=== PATIENT | female | born 1950 | race Caucasian/White ===

== ENCOUNTER 2025-07-29 10:38 | Outpatient (AMB) | payer OTHER, SELFPAY ==
--- NOTE | 2025-07-29 10:41 | MHC.OFFVIS ---
Vital Signs 07/29/25 10:46 Height 5 ft 7.5 in Weight 146 lb 8 oz BMI 22.6 Intake Visit Reasons: Chronic Bilateral Low Back Pain Intake Note: Pain today 11/30 Electrocardiogram Technician Required: No Accompanied by: Self / Same As Patient Allergies No Known Allergies Allergy (Verified 07/29/25 10:43) HPI Comments Details: The patient is a 74-year-old female presenting with chronic pain in the right thigh and sciatica. She reports a similar trajectory on her left side, which previously resulted in back surgery in October 2018, where L4 and L5 were debrided to relieve nerve compression. The surgery was performed at [facility] by Dr. Suazo. The patient has a history of falling off a horse in 2005, resulting in rib fractures and a cracked pelvis on the left side. She was diagnosed with osteoporosis in 2023, which is more severe in the right hip. She has not continued physical therapy after recent initial visit at [facility]. She previously was receiving back injections at [facility]. The patient experiences chronic low back pain, which radiates from the right lower back to the buttock, thigh, calf, and side of the foot, sparing the heel. She reports numbness in the left ankle and calf, as well as in the neck, which has been worsening over time. Bending backwards exacerbates the back pain, while bending forward provides relief. The patient has scoliosis, spondylosis, degenerative disc changes, sacroiliac joint pain and osteoporosis, which contribute to her back pain. 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 Driving exacerbates her pain, and she has not had MRIs for her hip or back. The patient reports tachycardia, particularly when lying down at night, which affects her sleep. Her levothyroxine dosage was recently adjusted by her Sequencing Machine Operator, but the issue persists. Patient reports history of thyroidectomy in 1997, unclear why, denies cancer or Grave's history. She plans to follow up with her providers regarding this. - Onset: Chronic, worsening over past 6 months, similar trajectory to previous left side pain - Quality: Radiating, aching, shooting pain from right lower back to buttock, thigh, calf, and side of the foot - Exacerbating factors: Bending backwards, driving, heavy lifting, climbing, prolonged walking or standing - Relieving factors: Bending forward, acupuncture, meloxicam, prednisone trial and cyclobenzaprine - Interference: Affects daily activities, worsens by late afternoon - Affect: Pain impacts sleep and daily activities - Analgesia: Uses lidocaine patches; pain worsens to 7/10 by late afternoon - Adverse Effects: Thin skin limits use of ibuprofen - Activities of Daily Living: Pain affects functioning, especially in the afternoon - Aberrant Drug Related Behaviors: None reported [facility] Medical History (Updated 08/01/25 @ 17:01 by MIGUEL Brink) Vitamin D deficiency Raynauds disease ADD (attention deficit disorder) Age-related osteoporosis without current pathological fracture Myofascial muscle pain Neck stiffness Sacroiliitis Chronic lower back pain Surgical History (Updated 08/01/25 @ 17:01 by MIGUEL Brink) History of back surgery (~2019) History of right shoulder replacement H/O thyroidectomy Social History Household Members: Spouse Housing: House Housing Other:: Lives and works at the [employer] Alcohol intake: never Patient Tobacco Use Status: Never used Tobacco Review of Systems Const Details: - Musculoskeletal: Reports chronic low back pain, radiating to right thigh and calf - Neurological: Reports numbness in neck and feet, particularly in the left ankle and calf - Cardiovascular: Reports tachycardia, especially when lying down - Dermatological: Reports thin skin All systems reviewed & are unremarkable except as noted in HPI and below Physical Exam Vital Signs: BMI result Body Mass Index 22.6 General: Appears afebrile. Alert and oriented. Mood and affect appropriate. Follows and participates in conversation appropriately. Respiratory effort is unlabored. No cough. Able to transition from sit to stand unassisted. Ambulates with bilaterally normal heel strike and toe off. General: Yes no CVA tenderness Back/Spine/Pelvis Other: Limited lumbar ROM due to pain. Lumbar extension reproduces moderate pain, flexion forward and bending causes mild symptoms. Demonstrates 5/5 strength of quadriceps bilaterally as well as flexion/dorsiflexion of bilateral feet against resistance. 2+ pedal pulses bilaterally. Straight leg rise with dorsiflexion positive on the right. +1 patellar and achilles reflexes bilaterally. Facet loading test positive bilaterally. Abdirahman sign, Samson?s, Gaenslen, Pelvic compression and Stinchfield tests are positive on the right. Mild groin pain with right I/E hip rotations. Valsalva maneuver negative. Back: no CVA tenderness Cervical Spine: cervical ROM normal, cervical muscular tenderness, pain with cervical ROM and No Cervical spine tenderness Thoracic/Lumbar Spine: thoracic and lumbar spine normal to inspection, Thoracic/lumbar spine scar(s), Lasegue's sign positive on the right and localized, pain with thoraco-lumbar ROM, paraspinal muscle tenderness, thoraco-lumbar ROM limited, No thoracic spinal tenderness and lumbar spinal tenderness (L4-S1) Pelvis: buttock tenderness on the right Sacroiliac joints: bilaterally tender to palpation Results Reviewed Results Reviewed: Assessment & Plan Assessment & Plan (1) Sacroiliac joint pain: Code(s): M53.3 - Sacrococcygeal disorders, not elsewhere classified (2) Lumbar radiculopathy: Code(s): M54.16 - Radiculopathy, lumbar region Category: Medical (3) Lumbar post-laminectomy syndrome: Code(s): M96.1 - Postlaminectomy syndrome, not elsewhere classified Category: Medical (4) Lumbar degenerative disc disease: Code(s): M51.369 - Other intervertebral disc degeneration, lumbar region without mention of lumbar back pain or lower extremity pain Category: Medical (5) Chronic lower back pain: Code(s): M54.50 - Low back pain, unspecified; G89.29 - Other chronic pain Category: Medical (6) Spondylolisthesis, lumbar region: Code(s): M43.16 - Spondylolisthesis, lumbar region Category: Medical Plan The plan includes obtaining lumbar spine MRI to assess for neural integrity and compression, given the patient's history of worsening chronic low back pain and right sided sciatica and SIJ pain components. Discussed diagnostic lumbar medial branch block injections for axial low back pain diagnostic purposes to determine the source of pain for potential radiofrequency ablation or Sprint PNS trial are considered as potential treatments, depending on the diagnostic outcomes. The patient will continue meloxicam as needed for pain management, with instructions to take it with food. Physical therapy is on hold until after the diagnostic procedures. All questions and concerns have been answered and patient agreed with the treatment plan. Follow up for MRI results and sooner as needed. Patient was informed and verbally consented to the use of an ambient scribe for clinic note documentation during this visit. Orders: Orders MR lumbar spine wo con 07/29/25 M43.16 - Spondylolisthesis, lumbar region, M47.817 - Spondylosis without myelopathy or radiculopathy, lumbosacral region, M51.369 - Other intervertebral disc degeneration, lumbar region without mention of lumbar back pain or lower extremity pain, M54.16 - Radiculopathy, lumbar region Coding Level of Care Code New Pt Level 4 (90592) Diagnoses Sacroiliac joint pain M53.3 Lumbar radiculopathy M54.16 Lumbar post-laminectomy syndrome M96.1 Lumbar degenerative disc disease M51.369 Chronic lower back pain M54.50; G89.29 Spondylolisthesis, lumbar region M43.16
[2025-07-29 10:46] VITALS: BMI 22.6
== END 2025-07-29 11:30 | disposition home or self-care (01) ==
LOC: HO.PMC 10:38
PROVIDERS: PCP Nurse Practitioner Family; Visit Provider Nurse Practitioner Family
DX: M53.3 Sacrococcygeal disorders, not elsewhere classified (principal); M54.16 Radiculopathy, lumbar region; M96.1 Postlaminectomy syndrome, not elsewhere classified; M51.369 Other intervertebral disc degeneration, lumbar region without mention of lumbar back pain or lower extremity pain; M54.50 Low back pain, unspecified; G89.29 Other chronic pain; M43.16 Spondylolisthesis, lumbar region
CPT/HCPCS: 99204

== ENCOUNTER → 2025-08-30 12:56 | Outpatient (BNV) | payer OTHER, SELFPAY | PROVIDERS: PCP Internal Medicine; Visit Provider Radiology Diagnostic Radiology | DX: M51.369 Other intervertebral disc degeneration, lumbar region without mention of lumbar back pain or lower extremity pain (principal); M47.817 Spondylosis without myelopathy or radiculopathy, lumbosacral region; M99.63 Osseous and subluxation stenosis of intervertebral foramina of lumbar region; M99.64 Osseous and subluxation stenosis of intervertebral foramina of sacral region | CPT/HCPCS: 72158 ==

== ENCOUNTER 2025-08-30 12:57 | Outpatient (REF) | payer OTHER, SELFPAY ==
--- OUTSIDE RECORDS SUMMARY | 2013-04-20 23:00 | XMS_ITS | Encounter Summary ---
Author Organization [facility] Address [address] [place] [address] Phone Care Team Providers Care Printing Agent Name Role Phone Unavailable Primary Care Provider Unavailabl e Encounter Details Date Type Department Care Team (Late st Contact Info) Description 04/21/2013 Hospital Encounter [facility],Outside Imaging 30 [place] [address] System, Provider Not In, [facility] [address] [address] Social History Tobacco Use Types Packs/Day Years [...] 10:15 PM EDT Evangelina Boland RN * [place] Suicide Severity Rating Scale (Screener/Recent Self-Report) Question [...] 11:40 AM EDT Office Visit [facility] [address] [place] [address] Missy Gannon MD [address] [place] [address] [email or web address] documented as of this encounter Procedures Procedure [...] It is not the complete legal health record.[facility]
--- OUTSIDE RECORDS SUMMARY | 2013-07-16 23:00 | XMS_ITS | Encounter Summary ---
Author Organization [facility] Address [address] [place] [address] Phone Care Team Providers Care Analytics Director Name Role Phone Unavailable Primary Care Provider Unavailabl e Encounter Details Date Type Department Care Team (Late st Contact Info) Description 07/17/2013 Hospital Encounter [facility],Outside Imaging [address] [place] [address] System, Provider Not In, [facility] [address] [address] Social History Tobacco Use Types Packs/Day Years [...] 10:15 PM EDT Evangelina Boland RN * [place] Suicide Severity Rating Scale (Screener/Recent Self-Report) Question [...] 11:40 AM EDT Office Visit [facility] [address] [place] [address] Missy Gannon MD [address] [place] [address] [email or web address] documented as of this encounter Procedures Procedure [...] It is not the complete legal health record.[facility]
--- OUTSIDE RECORDS SUMMARY | 2013-07-16 23:05 | XMS_ITS | Encounter Summary ---
Author Organization [facility] Address [address] [place] [address] Phone Care Team Providers Care Senior Talent Acquisition Specialist Name Role Phone Unavailable Primary Care Provider Unavailabl e Encounter Details Date Type Department Care Team (Late st Contact Info) Description 07/17/2013 12:05 AM EDT Hospital Encounter [facility],Outside Imaging [address] [place] [address] System, Provider [place] In, [place] [address] Social History Tobacco Use Types Packs/Day Years [...] 10:15 PM EDT Evangelina Boland, ANDRI[place] * [place] Suicide Severity Rating Scale (Screener/Recent Self-Report) Question [...] 11:40 AM EDT Office Visit [facility] [address] [place] [address] Missy Gannon MD [address] [place] [address] [email or web address] documented as of this encounter Procedures Procedure [...] It is not the complete legal health record.[facility]
--- NOTE | ~2025-08-30 | MR_ITS ---
EXAMINATION: MR LUMBAR SPINE WITHOUT AND WITH CONTRAST CLINICAL INFORMATION: M 51.369. COMPARISON: None available. TECHNIQUE: MRI of the lumbar spine was obtained using routine sequences with and without contrast. Intravenous contrast: Total of 6.5 mL gadolinium based (Gadavist) without reported immediate complications FINDINGS: Last rib-bearing vertebra labeled T12. There is a subtle bone marrow STIR signal in the endplates of L2-3 and L5-S1. Bone marrow inhomogeneity throughout the axial skeleton. Multilevel marginal osteophyte formation and endplate irregularity, decreased intervertebral disc height and signal throughout the axial skeleton. Intrinsic hyperintense T1 bone lesion at L3 likely intraosseous hemangioma. Grade 1 anterolisthesis L4-5. Grade 1 retrolisthesis L1 to and L2-3. Conus medullaris ends at inferior endplate of L1 with normal signal. No abnormal enhancement within the neural elements of the thecal sac, central spinal canal or prevertebral compartment. No enhancing mass in the prevertebral compartment or within the neural elements of the thecal sac. T12-L1: No herniated disc. No neuroforamina stenosis. L1-2: Broad-based disc bulging. Facet joint hypertrophy. Reduced AP diameter of the thecal sac and neuroforamina. L2-3: Broad-based disc bulging. Facet joint and ligamentum flavum hypertrophy. Reduced AP diameter thecal sac and neuroforamina pronounced in the left side. L3-4: Broad-based disc bulging. Facet joint and ligamentum flavum hypertrophy. Central spinal canal and bilateral neuroforamina stenosis likely encroaching the neural elements. L4-5: Broad-based disc bulging. Facet joint hypertrophy. Reduced AP diameter of thecal sac. Bilateral neuroforamina stenosis encroaching the L4 exiting nerve roots. Probable left hemilaminectomy. L5-S1: There is a left subarticular nonenhancing isointense T2 signal abnormality within the left midline ventral epidural/subdural compartment encroaching posterior compressing left S1 nerve roots. Broad-based disc bulging. Facet joint hypertrophy. Bilateral neuroforamina stenosis compressing the exiting nerve roots. MR/MR lumbar spine wo/w con IMPRESSION: Concerning left subarticular disc herniation at L5-S1 compressing the left S1 nerve root. Multilevel spondylosis resulting in bilateral neuroforamina stenosis at L5-S1 and left L2-3 encroaching the exiting nerve roots. Grade 1 anterolisthesis at L4-5 resulting in bilateral neuroforamina stenosis encroaching the exiting nerve roots. No abnormal enhancement. Osteopenia versus osteoporosis. Electronically signed by: Marck Garner MD 08/30/2025 02:19 PM [employer]
--- OUTSIDE RECORDS SUMMARY | 2025-08-30 15:01 | XMS_ITS | Encounter Summary ---
Author Organization [facility] Address [address] [place] [address] Phone Care Team Providers Care Treasury Assistant Name Role Phone Richard Springer MD Unavailable [phone] Scott Roe MD Unavailable [phone] Thelma Abarca MD Unavailable [phone] Johanna Fields MD Unavailable [phone] Rakan Avila MD Unavailable [phone] Lara Maldonado RNaquatics specialist Provider [phone] Antonia Reyes MD Primary Care Provider [email or web address] Clotilde Phillips AIRBORNE OPERATIONS MANAGER Primary Care Provider [phone] Julita Urbina MD Primary Care Provider [phone] Encounter Details Date Type Department Care Team (Late st Contact Info) Description 07/26/2020 Ancillary Orders [facility],Outside Imaging [address] [place] [address] System, Provider Not In, PhD [address] [address] Social History Tobacco Use Types Packs/Day Years Used Date Smoking Tobacco: Never Smokeless Tobacco: Never Alcohol Use Standard Drinks/Week Comments Yes 0 (1 standard drink = 0.6 oz pur e alcohol) small amt of beer nightly Comments Unknown Sex and Gender Information Value Date Recorded [...] AM EDT Office Visit [facility] [address] [place] [address] Missy Gannon MD [address] [place] [address] [email or web address] documented as of this encounter Results * Mammogram Outside (No Interpretation) (05/09/2015 12:00 AM EDT) Narrative SYSTEMGENERATED, DOCUMENTATION - [...] COVID-19 07/04/2024 07/04/2024 07/25/2024 1:22 AM EDT Assessment Noted Time PHQ-2 Depression Total Score: 1 08/21/20 18 2:32 PM EDT documented as of this encounter Care Teams Treasury Assistant Relationship Specialty Start Date End Date Lara Maldonado RN [address] [place] [address] PCP - General Internal Medicine 05/16/20 12/21/20 Antonia Reyes MD [email or web address] PCP - General Family Medicine 12/22/20 05/03/21 Clotilde Phillips FNP [address] [place] [address] 7 [place] [address] [email or web address] PCP - General Family Medicine 05/04/21 12/10/22 Julita Urbina MD [address] [place] [address] [email or web address] PCP - General Internal Medicine 12/11/22 Richard Springer MD [address] [place] [address] [email or web address] Historical LMR Provider 08/10/17 12/21/20 Scott Roe MD [address] [place] [address] [email or web address] Historical LMR Provider 08/10/17 12/21/20 Thelma Abarca MD [address] [place] [address] Historical LMR Provider 08/10/17 1 Johanna Fields MD [address] [place] [address] Historical LMR Provider 08/10/17 1 Rakan Avila MD [address] [place] [address] Historical LMR Provider 08/10/17 1 documented as of this encounter Additional Source Comments The information contained in this document represents components of the legal health record. It is not the complete legal health record.[facility]
--- OUTSIDE RECORDS SUMMARY | 2025-08-30 15:01 | XMS_ITS | Encounter Summary ---
Author Organization [facility] Address [address] [place] [address] Phone Care Team Providers Care Instructor Extension Work Name Role Phone Richard Springer MD Unavailable [phone] Scott Roe MD Unavailable [phone] Thelma Abarca MD Unavailable [phone] Johanna Fields MD Unavailable [phone] Rakan Avila MD Unavailable [phone] Lara Maldonado RNstructures mechanic Provider [phone] Antonia Reyes MD Primary Care Provider [email or web address] Clotilde Phillips SAMPLE STEAMER Primary Care Provider [phone] Julita Urbina MD Primary Care Provider [phone] Encounter Details Date Type Department Care Team (Late st Contact Info) Description 07/26/2020 Ancillary Orders [facility],Outside Imaging [address] [place] [address] System, Provider Not In, PhD [address] [address] Social History Tobacco Use Types Packs/Day Years [...] 11:40 AM EDT Office Visit [facility] [address] [place] [address] Missy Gannon MD [address] [place] [address] [email or web address] documented as of this encounter Results * US Breast Outside [...] documented as of this encounter Care Teams Instructor Extension Work Relationship Specialty Start Date End Date Lara Maldonado RN [address] [place] [address] PCP - General Internal Medicine 05/16/20 12/21/20 Antonia Reyes MD [email or web address] PCP - General Family Medicine 12/22/20 05/03/21 Clotilde Phillips FNP [address] [place] [address] 7 [place] [address] [email or web address] PCP - General Family Medicine 05/04/21 12/10/22 Julita Urbina MD [address] [place] [address] [email or web address] PCP - General Internal Medicine 12/11/22 Richard Springer MD [address] [place] [address] [email or web address] Historical LMR Provider 08/10/17 12/21/20 Scott Roe MD [address] [place] [address] [email or web address] Historical LMR Provider 08/10/17 12/21/20 Thelma Abarca MD [address] [place] [address] Historical LMR Provider 08/10/17 1 Johanna Fields MD [address] [place] [address] Historical LMR Provider 08/10/17 1 Rakan Avila MD [address] [place] [address] Historical LMR Provider 08/10/17 1 documented as of this encounter Additional Source Comments The information contained in this document represents components of the legal health record. It is not the complete legal health record.[facility]
--- OUTSIDE RECORDS SUMMARY | 2025-08-30 15:01 | XMS_ITS | Encounter Summary ---
Author Organization [facility] Address [address] [place] [address] Phone Care Team Providers Care Production Associate Name Role Phone Richard Springer MD Unavailable [phone] Scott Roe MD Unavailable [phone] Thelma Abarca MD Unavailable [phone] Johanna Fields MD Unavailable [phone] Rakan Avila MD Unavailable [phone] Lara Maldonado RNmotorcycle subassembly repairer Provider [phone] Antonia Reyes MD Primary Care Provider [email or web address] Clotilde Phillips CALL CENTER PROFESSIONAL Primary Care Provider [phone] Julita Urbina MD Primary Care Provider [phone] Encounter Details Date Type Department Care Team (Late st Contact Info) Description 07/26/2020 Ancillary Orders [facility],Outside Imaging [address] [place] [address] System, Provider Not In, PhD [address] [address] Social History Tobacco Use Types Packs/Day Years [...] 11:40 AM EDT Office Visit [facility] [address] [place] [address] Missy Gannon MD [address] [place] [address] [email or web address] documented as of this encounter Results * [...] documented as of this encounter Care Teams Production Associate Relationship Specialty Start Date End Date Lara Maldonado RN [address] [place] [address] PCP - General Internal Medicine 05/16/20 12/21/20 Antonia Reyes MD [email or web address] PCP - General Family Medicine 12/22/20 05/03/21 Clotilde Phillips FNP [address] [place] [address] 7 [place] [address] [email or web address] PCP - General Family Medicine 05/04/21 12/10/22 Julita Urbina MD [address] [place] [address] [email or web address] PCP - General Internal Medicine 12/11/22 Richrad Springer MD [address] [place] [address] [email or web address] Historical LMR Provider 08/10/17 12/21/20 Scott Roe MD [address] [place] [address] [email or web address] Historical LMR Provider 08/10/17 12/21/20 Thelma Abarca MD [address] [place] [address] Historical LMR Provider 08/10/17 1 Johanna Fields MD [address] [place] [address] Historical LMR Provider 08/10/17 1 Rakan Avila MD [address] [place] [address] Historical LMR Provider 08/10/17 1 documented as of this encounter Additional Source Comments The information contained in this document represents components of the legal health record. It is not the complete legal health record.[facility]
--- OUTSIDE RECORDS SUMMARY | 2025-08-30 15:01 | XMS_ITS | Encounter Summary ---
Author Organization [facility] Address [address] [place] [address] Phone Care Team Providers Care Installation Helper Name Role Phone Jluita Urbina MD Primary Care Provider [phone] Encounter Details Date Type Department Care Team (Late st Contact Info) Description 11/29/2023 Procedure Pass [facility] PERIOP DEPT [address] [place] [address] Social History Tobacco Use Types Packs/Day Years Used Date Smoking Tobacco: Never Smokeless Tobacco: Never Alcohol Use Standard Drinks/Week Comments Never 0 (1 standard drink = 0.6 oz pur e alcohol) small amt of beer nightly Child or Family Care Answer Date Record ed Do you have problems with on e of the following making it difficult for you to work, study, or receive health care? No 12/03/2022 Education Answer Date Recorded Are you interested in help w ith more adult education (for example, completing high school, GED, job training, learning the [place] language, technical skills, or developing parenting skills)? No 12/03/2022 Food Answer Date Recorded Within the past [...] is your housing situation today? I have wilfirdo sing 12/03/2022 How many times have you [...] with a working camera? Not on file Comments No Sex and Gender Information Value [...] 11:40 AM EDT Office Visit [facility] [address] [place] [address] Missy Gannon MD [address] [place] [address] documented as of this encounter Visit Diagnoses Not on filedocumented in this encounter Additional Health Concerns Infection Onset Date Last Indicated Resolved Time COVID-19 07/04/2024 07/04/2024 07/25/2024 1:22 AM EDT Assessment Noted Time PHQ-2 Depression Total Score: 0 12/03/19 23 9:54 AM EST documented as of this encounter Care Teams Installation Helper Relationship Specialty Start Date End Date Julita Urbina MD [address] [place] [address], [address] [place] [address] PCP - General Internal Medicine 12/11/22 documented as of this encounter Additional Source Comments The information contained in this document represents components of the legal health record. It is not the complete legal health record.[facility]
--- OUTSIDE RECORDS SUMMARY | 2025-08-30 15:01 | XMS_ITS | Encounter Summary ---
Author Organization [facility] Address [address] [place] [address] Phone Care Team Providers Care Supervisor Pressing Department Name Role Phone Richard Springer MD Unavailable [phone] Scott Roe MD Unavailable [phone] Thelma Abarca MD Unavailable [phone] Johanna Fields MD Unavailable [phone] Rakan Avila MD Unavailable [phone] Lara Maldonado RNlegislative correspondent Provider [phone] Antonia Reyes MD Primary Care Provider [email or web address] Clotilde Phillips Primary Care Provider [phone] Julita Urbina MD Primary Care Provider [phone] Encounter Details Date Type Department Care Team (Late st Contact Info) Description 07/13/2020 Procedure Pass [address] [place] [address] Social History Tobacco Use Types Packs/Day Years Used Date Smoking Tobacco: Never Smokeless Tobacco: Never Alcohol Use Standard Drinks/Week Comments Yes 0 (1 standard drink = 0.6 oz pur e alcohol) small amt of beer nightly Comments No Sex and Gender Information Value [...] AM EDT Office Visit [facility] [address] [place] [address] Missy Gannon MD [address] [place] [address] [email or web address] documented as of this encounter Visit Diagnoses [...] documented as of this encounter Care Teams Supervisor Pressing Department Relationship Specialty Start Date End Date Lara Maldonado RN [address] [place] [address] [email or web address] PCP - General Internal Medicine 05/16/20 12/21/20 Antonia Reyes MD [email or web address] PCP - General Family Medicine 12/22/20 05/03/21 Clotilde Phillips FNP [address] [place] [address], [facility] 7 [place] [address] [email or web address] PCP - General Family Medicine 05/04/21 12/10/22 Julita Urbina MD [address] [place] [address] [email or web address] PCP - General Internal Medicine 12/11/22 Richard Springer MD [address] [place] [address] [email or web address] Historical LMR Provider 08/10/17 12/21/20 Scott Roe MD [address] [address] [email or web address] Historical LMR Provider 08/10/17 12/21/20 Thelma Abarca MD [address] [place] [address] Historical LMR Provider 08/10/17 1 Johanna Fields MD [address] [place] [address] Historical LMR Provider 08/10/17 1 Rakan Avila MD [address] [place] [address] Historical LMR Provider 08/10/17 1 documented as of this encounter Additional Source Comments The information contained in this document represents components of the legal health record. It is not the complete legal health record.[facility]
--- OUTSIDE RECORDS SUMMARY | 2025-08-30 15:01 | XMS_ITS | Encounter Summary ---
Author Organization [facility] Address [address] [place] [address] Phone Care Team Providers Care Rubber Worker Name Role Phone Richard Springer MD Unavailable [phone] Scott Reo MD Unavailable [phone] Thelma Abarca MD Unavailable [phone] Johanna Fields MD Unavailable [phone] Rakan Avila MD Unavailable [phone] Richard Springer MD Primary Care Provider + Lara Maldonado RNsite lead Provider [phone] Antonia Reyes MD Primary Care Provider [email or web address] Clotilde Phillips Primary Care Provider [phone] Julita Urbina MD Primary Care Provider [phone] Encounter Details Date Type Department Care Team (Late st Contact Info) Description 07/23/2018 Procedure Pass [address] [address] Social History Tobacco Use Types Packs/Day Years Used Date Smoking Tobacco: Never Smokeless Tobacco: Never Comments Unknown Sex and Gender Information Value Date Recorded Sex Assigned at Female 06/28/2021 10:42 AM EDT Legal Sex Female 10:03 PM EDT Gender Identity Female 06/28/2021 10:42 AM EDT Sexual Orientation Straight 06/28/2021 10 :41 AM EDT documented as of this encounter Last Filed Vital Signs Vital Sign Reading Time Taken Comments Blood Pressure - - Pulse - - Temperature - - Respiratory Rate - - Oxygen Saturation - - Inhaled Oxygen Concentration - - Weight 63.5 kg (140 lb) 07/24/2018 8:23 AM EDT Height 172.7 cm (5' 8 ) 07/24/2018 8:23 AM EDT Body Mass Index 21.29 07/24/2018 8:23 AM EDT documented in this encounter Plan of Treatment Upcoming Encounters Date Type Department Care Team (Late st Contact Info) Description 01/19/2026 11:40 AM EDT Office Visit [facility] [address] [place] [address] Missy Gannon MD [address] [place] [address] [email or web address] documented as of this encounter Visit Diagnoses Not on filedocumented in this encounter Additional Health Concerns Infection Onset Date Last Indicated Resolved Time CoV-Risk 11/11/2020 11/11/2020 11/21/2020 1:24 AM EST CoV-Risk 11/13/2022 11/13/2022 11/24/2022 1:22 AM EST CoV-Risk Comment:Per Ambulatory Triage Form 11/06/2023 11/06/202311/17 1:22 AM EST COVID-19 07/04/2024 07/04/2024 07/25/2024 1:22 AM EDT documented as of this encounter Care Teams Rubber Worker Relationship Specialty Start Date End Date Richard Springer MD [address] [place] [address] PCP - General Family Medicine 07/22/18 05/15/20 Lara Maldonado RN [address] [place] [address] [email or web address] PCP - General Internal Medicine 05/16/20 12/21/20 Antonia Reyes MD [email or web address] PCP - General Family Medicine 12/22/20 05/03/21 Clotilde Phillips FNP [address] [place] [address] [address] [place] [address] [email or web address] PCP - General Family Medicine 05/04/21 12/10/22 Julita Urbina MD [address] [place] [address] [email or web address] PCP - General Internal Medicine 12/11/22 Richard Springer MD [address] [place] [address] [email or web address] Historical LMR Provider 08/10/17 12/21/20 Scott Roe MD [address] [place] [address] [email or web address] Historical LMR Provider 08/10/17 12/21/20 Thelma Abarca MD [address] [place] [address] Historical LMR Provider 08/10/17 1 Johanna Fields MD [address] [place] [address] Historical LMR Provider 08/10/17 1 Rakan Avila MD [address] [place] [address] Historical LMR Provider 08/10/17 1 documented as of this encounter Additional Source Comments The information contained in this document represents components of the legal health record. It is not the complete legal health record.[facility]
--- OUTSIDE RECORDS SUMMARY | 2025-08-30 15:01 | XMS_ITS | Encounter Summary ---
Author Organization [facility] Address [address] [place] [address] Phone Care Team Providers Care Instrument Lens Grinder Apprentice Name Role Phone Richard Springer MD Unavailable [phone] Scott Roe MD Unavailable [phone] Thelma Abarca MD Unavailable [phone] Johanna Fields MD Unavailable [phone] Rakan Avila MD Unavailable [phone] Lara Maldonado RNemployee relations consultant Provider [phone] Antonia Reyes MD Primary Care Provider [email or web address] Clotilde Phillips WINERY WORKER Primary Care Provider [phone] Julita Urbina MD Primary Care Provider [phone] Encounter Details Date Type Department Care Team (Late st Contact Info) Description 07/26/2020 Ancillary Orders [facility],Outside Imaging [address] [place] [address] System, Provider Not In, PhD [address] [address] Social History Tobacco Use Types Packs/Day Years [...] 11:40 AM EDT Office Visit [facility] [address] [place] [address] Missy Gannon MD [address] [place] [address] [email or web address] documented as of this encounter Results * [...] documented as of this encounter Care Teams Instrument Lens Grinder Apprentice Relationship Specialty Start Date End Date Lara Maldonado RN [address] [place] [address] PCP - General Internal Medicine 05/16/20 12/21/20 Antonia Reyes MD [email or web address] PCP - General Family Medicine 12/22/20 05/03/21 Clotilde Phillips FNP [address] [place] [address] [address] [place] [address] [email or web address] PCP - General Family Medicine 05/04/21 12/10/22 Julita Urbina MD [address] [place] [address] [email or web address] PCP - General Internal Medicine 12/11/22 Richard Springer MD [address] [place] [address] [email or web address] Historical LMR Provider 08/10/17 12/21/20 Scott Roe MD [address] [place] [address] [email or web address] Historical LMR Provider 08/10/17 12/21/20 Thelma Abarca MD [address] [place] [address] Historical LMR Provider 08/10/17 1 Johanna Fields MD [address] [place] [address] Historical LMR Provider 08/10/17 1 Rakan Avila MD [address] [place] [address] Historical LMR Provider 08/10/17 1 documented as of this encounter Additional Source Comments The information contained in this document represents components of the legal health record. It is not the complete legal health record.[facility]
--- OUTSIDE RECORDS SUMMARY | 2025-08-30 15:03 | XMS_ITS | Encounter Summary ---
Author Organization [facility] Address [address] [place] [address] Phone Care Team Providers Care Data Management Associate Name Role Phone Julita Urbina MD Primary Care Provider [phone] Encounter Details Date Type Department Care Team (Late st Contact Info) Description 12/12/2022 Procedure Pass [address] [address] Social History Tobacco Use Types Packs/Day Years [...] high school, GED, job training, learning the Burmese language, technical skills, or developing parenting skills)? [...] basis, and looking for work? No 12/03/2022 Comments No Sex and Gender Information Value [...] 11:40 AM EDT Office Visit [facility] [address] [place] [address] Missy Gannon MD [address] [place] [address] documented as of this encounter Visit Diagnoses Not on filedocumented in this encounter Additional Health Concerns Infection Onset Date Last Indicated Resolved Time CoV-Risk Comment:Per Ambulatory Triage Form 11/06/2023 11/06/202311/17 1:22 AM EST COVID-19 07/04/2024 07/04/2024 07/25/2024 1:22 AM EDT Assessment Noted Time PHQ-2 Depression Total Score: 0 12/03/19 9:54 AM EST documented as of this encounter Care Teams Data Management Associate Relationship Specialty Start Date End Date Julita Urbina MD [address] [place] [address] 2[address] [place] [address] PCP - General Internal Medicine 12/11/22 documented as of this encounter Additional Source Comments The information contained in this document represents components of the legal health record. It is not the complete legal health record.[facility]
--- OUTSIDE RECORDS SUMMARY | 2025-08-30 15:03 | XMS_ITS | Encounter Summary ---
Author Organization [facility] Address [address] [place] [address] Phone Care Team Providers Care Bus And Trolley Dispatcher Name Role Phone Julita Urbina MD Primary Care Provider [phone] Reason for Visit * Reason Onset Date Comments Referral 07/08/2025 Encounter Details Date Type Department Care Team ([facility] st Contact Info) Description 07/08/2025 Telephone [facility] [address] [place] [address] [email or web address] Referral Social History Tobacco Use Types Packs/Day Years [...] your housing situation today? I have wilfrido best 12/03/2022 How many times have you move [...] AM EDT documented as of this encounter Progress Notes * Erma Palacios - 07/08/2025 2:43 PM EDT Patient called in regarding the referral to [facility]. Pt would like this faxed to [phone]. Please contact and advise. Central Support Electrician Substation Supervisor (Please do not reply to this user; this inbox is not monitored.) Thank you. documented in this encounter Plan of Treatment Upcoming Encounters Date Type Department Care Team (Late st Contact Info) Description 01/19/2026 11:40 AM EDT Office Visit [facility] [address] [place] [address] Missy Gannon MD [address] [facility] [address] [place] [address] [email or web address] documented as of this encounter Visit Diagnoses Not on filedocumented in this encounter Additional Health Concerns Assessment Noted Time PHQ-2 Depression Total Score: 0 12/03/19 9:54 AM EST documented as of this encounter Care Teams Bus And Trolley Dispatcher Relationship Specialty Start Date End Date Julita Urbina MD [address] [place] [address] 2[address] [place] [address] PCP - General Internal Medicine 12/11/22 documented as of this encounter Additional Source Comments The information contained in this document represents components of the legal health record. It is not the complete legal health record.[facility]
--- OUTSIDE RECORDS SUMMARY | 2025-08-30 15:03 | XMS_ITS | Encounter Summary ---
Author Organization [facility] Address [address] [place] [address] Phone Care Team Providers Care Weights And Measures Sealer Name Role Phone Julita Urbina MD Primary Care Provider [phone] Encounter Details Date Type Department Care Team (Late st Contact Info) Description 12/14/2022 Procedure Pass [address] [address] Social History Tobacco Use Types Packs/Day Years [...] high school, GED, job training, learning the Scottish language, technical skills, or developing parenting skills)? [...] 11:40 AM EDT Office Visit [facility] [address] [place] [address] Missy Gannon MD [address] [place] [address] documented as of this encounter Visit Diagnoses Not on filedocumented in this encounter Additional Health Concerns Infection Onset Date Last Indicated Resolved Time CoV-Risk Comment:Per Ambulatory Triage Form 11/06/2023 11/06/202311/17 1:22 AM EST COVID-19 07/04/2024 07/04/2024 07/25/2024 1:22 AM EDT Assessment Noted Time PHQ-2 Depression Total Score: 0 12/03/19 9:54 AM EST documented as of this encounter Care Teams Weights And Measures Sealer Relationship Specialty Start Date End Date Julita Urbina MD [address] [place] [address] [address] [place] [address] PCP - General Internal Medicine 12/11/22 documented as of this encounter Additional Source Comments The information contained in this document represents components of the legal health record. It is not the complete legal health record.[facility]
--- OUTSIDE RECORDS SUMMARY | 2025-08-30 15:03 | XMS_ITS | Encounter Summary ---
Author Organization [facility] Address [address] [place] [address] Phone Care Team Providers Care Director Internal Audit Name Role Phone Julita Urbina MD Primary Care Provider [phone] Encounter Details Date Type Department Care Team (Late st Contact Info) Description 06/01/2025 Ancillary Orders [facility], X-Ray - [address] [place] [address] Mary Nuñez, ROBERTH [address] [place] [address] [email or web address] Other spondylosis, lumbar region (Primary Dx) Social History Tobacco Use Types Packs/Day Years [...] 11:40 AM EDT Office Visit [facility] [address] [place] [address] [place] [address] Missy Gannon MD [address] [place] [address] [email or web address] documented as of this encounter Results * XR LUMBOSACRAL SPINE 4 OR MORE VIEWS (06/01/2025 2:29 PM EDT) Anatomical Region Laterality Modality L-spine Computed Radiogr aphy 06/02/2025 11:3 2 AM EDT Impressions 06/02/2025 11:33 AM EDT Degenerative changes. No acute osseous abnormality. Narrative 06/02/2025 11:33 AM EDT XR LUMBOSACRAL SPINE 4 OR MORE VIEWS Referring clinician's provided indication for this examination in Epic: Pain COMPARISON: XR LUMBOSACRAL SPINE 4 OR MORE VIEWS FINDINGS: No acute fracture or compression fracture. Right convex lumbar spinal curvature. Multilevel disc height loss with endplate osteophytes greatest at L5-S1. Multilevel facet osteoarthrosis greatest at L3 to S1. Mild L1-2 retrolisthesis. Grade 1 L4- 5 anterolisthesis. No dynamic instability. Procedure Note Jamila Alarcon MD - 06/02/2025 XR LUMBOSACRAL SPINE 4 OR MORE VIEWS Referring clinician's provided indication for this examination in Epic:Pain COMPARISON: XR LUMBOSACRAL SPINE 4 OR MORE VIEWS FINDINGS: No acute fracture or compression fracture. Right convex lumbar spinalcurvature. Multilevel disc height loss with endplate osteophytes greatestat L5-S1. Multilevel facet osteoarthrosis greatest at L3 to S1. Mild L1-2retrolisthesis. Grade 1 L4-5 anterolisthesis. No dynamic instability. IMPRESSION: Degenerative changes. No acute osseous abnormality. [facility] XR SPINE Final Result documented in this encounter Visit Diagnoses Diagnosis Other spondylosis, lumbar region- Primary Other spondylosis, lumbar region documented in this encounter Additional Health Concerns Assessment Noted Time PHQ-2 Depression Total Score: 0 12/03/19 23 9:54 AM EST documented as of this encounter Care Teams Director Internal Audit Relationship Specialty Start Date End Date Julita Urbina MD [address] [place] [address], [address] Floor [place] [id number] [email or web address] PCP - General Internal Medicine 12/11/22 documented as of this encounter Additional Source Comments The information contained in this document represents components of the legal health record. It is not the complete legal health record.[facility]
--- OUTSIDE RECORDS SUMMARY | 2025-08-30 15:03 | XMS_ITS | Encounter Summary ---
Author Organization [facility] Address [address] [place] [address] Phone Care Team Providers Care Macadam Raker Name Role Phone Julita Urbina MD Primary Care Provider [phone] Encounter Details Date Type Department Care Team (Late st Contact Info) Description 04/12/2023 Procedure Pass [facility], Ct Scan - [address] [address] Social History Tobacco Use Types Packs/Day Years [...] high school, GED, job training, learning the Salvadorean language, technical skills, or developing parenting skills)? [...] 11:40 AM EDT Office Visit [facility] [address] [place] [address] Missy Gannon MD [address] [place] [address] [email or web address] documented as of this encounter Visit Diagnoses Not on filedocumented in this encounter Additional Health Concerns Infection Onset Date Last Indicated Resolved Time CoV-Risk Comment:Per Ambulatory Triage Form 11/06/2023 11/06/202311/17 1:22 AM EST COVID-19 07/04/2024 07/04/2024 07/25/2024 1:22 AM EDT Assessment Noted Time PHQ-2 Depression Total Score: 0 12/03/19 23 9:54 AM EST documented as of this encounter Care Teams Macadam Raker Relationship Specialty Start Date End Date Julita Urbina MD [address] [place] [address] [address] [place] [address] [email or web address] PCP - General Internal Medicine 12/11/22 documented as of this encounter Additional Source Comments The information contained in this document represents components of the legal health record. It is not the complete legal health record.[facility]
--- OUTSIDE RECORDS SUMMARY | 2025-08-30 15:03 | XMS_ITS | Encounter Summary ---
Author Organization [facility] Address [address] [place] [address] Phone Care Team Providers Care Fishing Tool Supervisor Name Role Phone Richard Springer MD Unavailable [phone] Scott Roe MD Unavailable [phone] Thelma Abarca MD Unavailable [phone] Johanna Fields MD Unavailable [phone] Rakan Avila MD Unavailable [phone] Richard Springer MD Primary Care Provider + Lara Maldonado RNlehr stripper Provider [phone] Antonia Reyes MD Primary Care Provider [email or web address] Clotilde Phillips Primary Care Provider [phone] Julita Urbina MD Primary Care Provider [phone] Encounter Details Date Type Department Care Team (Late st Contact Info) Description 10/23/2018 Procedure Pass [place] Admitting Dept - Virtual Department [address] [place] [address] Social History Tobacco Use Types Packs/Day Years [...] 11:40 AM EDT Office Visit [facility] [address] [place] [address] Missy Gannon MD [address] [place] [address] documented as of this encounter Visit Diagnoses [...] documented as of this encounter Care Teams Fishing Tool Supervisor Relationship Specialty Start Date End Date Richard Springer MD [address] [place] [address] [email or web address] PCP - General Family Medicine 07/22/18 05/15/20 Lara Maldonado RN [address] [place] [address] PCP - General Internal Medicine 05/16/20 12/21/20 Antonia Reyes MD [email or web address] PCP - General Family Medicine 12/22/20 05/03/21 Clotilde Phillips FNP [address] [place] [address], [address] [place] [address] [email or web address] PCP - General Family Medicine 05/04/21 12/10/22 Julita Urbina MD [address] [place] [address] [email or web address] PCP - General Internal Medicine 12/11/22 Richard Springer MD [address] [place] [address] [email or web address] Historical LMR Provider 08/10/17 12/21/20 Scott Roe MD [address] [place] [address] [email or web address] Historical LMR Provider 08/10/17 12/21/20 Thelma Abarca MD [address] [place] [address] Historical LMR Provider 08/10/17 1 Johanna Fields MD [address] [place] [phone] Historical LMR Provider 08/10/17 1 Rakan Avila MD [address] [place] [address] Historical LMR Provider 08/10/17 1 documented as of this encounter Additional Source Comments The information contained in this document represents components of the legal health record. It is not the complete legal health record.[facility]
--- OUTSIDE RECORDS SUMMARY | 2025-08-30 15:03 | XMS_ITS | Encounter Summary ---
Author Organization [facility] Address [address] [place] [address] Phone Care Team Providers Care Quality Rn Name Role Phone Julita Urbina MD Primary Care Provider [phone] Encounter Details Date Type Department Care Team (Late st Contact Info) Description 05/16/2023 Procedure Pass [address] [place] [address] Social History Tobacco Use Types Packs/Day Years [...] high school, GED, job training, learning the Gambian language, technical skills, or developing parenting skills)? [...] 11:40 AM EDT Office Visit [facility] [address] [place] [address] Missy Gannon MD [address] [place] [address] [email or web address] documented as of this encounter Visit Diagnoses Not on filedocumented in this encounter Additional Health Concerns Infection Onset Date Last Indicated Resolved Time CoV-Risk Comment:Per Ambulatory Triage Form 11/06/2023 11/06/202311/17 1:22 AM EST COVID-19 07/04/2024 07/04/2024 07/25/2024 1:22 AM EDT Assessment Noted Time PHQ-2 Depression Total Score: 0 12/03/19 23 9:54 AM EST documented as of this encounter Care Teams Quality Rn Relationship Specialty Start Date End Date Julita Urbina MD [address] [place] [address] [email or web address] PCP - General Internal Medicine 12/11/22 documented as of this encounter Additional Source Comments The information contained in this document represents components of the legal health record. It is not the complete legal health record.[facility]
--- OUTSIDE RECORDS SUMMARY | 2025-08-30 15:04 | XMS_ITS | Encounter Summary ---
Author Organization [facility] Address [address] [place] [address] Phone Care Team Providers Care Marine Extension Agent Name Role Phone Clotilde Phillips [facility] Primary Care Provider [phone] Julita Urbina MD Primary Care Provider [phone] Encounter Details Date Type Department Care Team (Latest Contact Info) Description 10/17/2021 Transcribe Orders Virtual Department [address] [place] [address] Clotilde Phillisp [facility] [address] [facility], [facility] 7 [place] [address] [email or web address] Breast screening (Primary Dx) Social History Tobacco Use Types [...] work, study, or receive health care? No 05/04/2021 Education Answer Date Recorded Are you interested in help w ith more adult education (for example, completing high school, GED, job training, learning the Indonesian language, technical skills, or developing parenting skills)? No 05/04/2021 Are you concerned about learning? Not on file 05/04/2021 Not on file 05/04/2021 Not on file 05/04/2021 Food Answer Date Recorded Within the past 6 months we worried whether our food would run out before we got money to buy more. Never True 05/04/2021 Within the past 6 months the food we bought just didn't last and we didn't have enough money to get more. Never True Paying for Meds Answer Date Recorded Do you have trouble paying for medicines? No 05/04/2021 Paying Utility Bills Answer Date Record ed Do you have trouble paying your heating or elect ricity bill? No 05/04/2021 Transportation Answer Date Recorded Has the lack of transportati on kept you from medical appointments or from getting medications? No 05/04/2021 Comments No Sex and Gender Information Value [...] AM EDT Office Visit [facility] [address] [place] [phone] Missy Gannon MD [address] [place] [phone] [email or web address] documented as of this encounter Results * BI MAMMOGRAM SCREENING WITH TOMOSYNTHESIS WITH CAD (BILATERAL) (10/18/2021 10:27 AM EST) Anatomical Region Laterality Modality Breast Left, Breast Right, Breast Bilateral Bila teral Mammography 10/18/2021 10:3 2 AM EST Impressions 10/18/2021 10:33 AM EST No mammographic evidence of malignancy. Recommend routine annual surveillance. BI-RADS CATEGORY: 2 - Benign finding. DENSITY: The breast tissue is heterogeneously dense, which could obscure a lesion on mammography. Narrative 10/18/2021 10:33 AM EST 70-year-old female with no current breast symptoms. Comparison made to previous on 08/26/2020 and as far back as 04/21/2013. Interpretation made in conjunction with computer-aided detection and tomosynthesis. The breasts are heterogeneously dense, which may obscure small masses. Chronic benign bilateral macrocalcifications and vascular calcifications. There are no suspicious masses, areas of architectural distortion, or suspicious clusters of microcalcifications. Procedure Note Lucio Amador MD - 10/18/2021 70-year-old female with no current breast symptoms. Comparison made toprevious on 08/26/2020 and as far back as 04/21/2013. Interpretation made inconjunction with computer-aided detection and tomosynthesis. The breasts are heterogeneously dense, which may obscure small masses.Chronic benign bilateral macrocalcifications and vascularcalcifications. There are no suspicious masses, areas of architectural distortion, orsuspicious clusters of microcalcifications. IMPRESSION: No mammographic evidence of malignancy. Recommend routine annualsurveillance. BI-RADS CATEGORY: 2 - Benign finding. DENSITY: The breast tissue is heterogeneously dense, which could obscurea lesion on mammography. Clotilde RIVERA IMG MG EXAMS Final Result documented in this encounter Visit Diagnoses Diagnosis Breast screening- Primary Breast screening, unspecified Breast screening Breast screening, unspecified documented in this encounter Additional Health Concerns Infection Onset Date Last Indicated Resolved Time CoV-Risk 11/13/2022 11/13/2022 11/24/2022 1:22 AM EST CoV-Risk Comment:Per Ambulatory Triage Form 11/06/2023 11/06/202311/17 1:22 AM EST COVID-19 07/04/2024 07/04/2024 07/25/2024 1:22 AM EDT Assessment Noted Time PHQ-2 Depression Total Score: 1 05/04/20 21 12:02 PM EDT documented as of this encounter Care Teams Marine Extension Agent Relationship Specialty Start Date End Date Clotilde Phillips FNP [address] [place] [address], [address] [place] [address] [email or web address] PCP - General Family Medicine 05/04/21 12/10/22 Julita Urbina MD [address] [place] [address], [address] [place] [address] [email or web address] PCP - General Internal Medicine 12/11/22 documented as of this encounter Additional Source Comments The information contained in this document represents components of the legal health record. It is not the complete legal health record.[facility]
--- OUTSIDE RECORDS SUMMARY | 2025-08-30 15:04 | XMS_ITS | Encounter Summary ---
Author Organization [facility] Address [address] [place] [address] Phone Care Team Providers Care Line Crewman Name Role Phone Clotilde Phillips Vane RIVERA Primary Care Provider [phone] Julita Urbina MD Primary Care Provider [phone] Encounter Details Date Type Department Care Team (Late st Contact Info) Description 10/17/2021 Procedure Pass [facility] - [address] [place] [address] Social History Tobacco Use Types Packs/Day Years [...] high school, GED, job training, learning the [place] language, technical skills, or developing parenting skills)? [...] 11:40 AM EDT Office Visit [facility] [address] [place] [address] Missy Gannon MD [address] [place] [address] documented as of this encounter Visit Diagnoses [...] documented as of this encounter Care Teams Line Crewman Relationship Specialty Start Date End Date Clotilde Phillips FNP [address] [place] [address], [address] [place] [address] PCP - General Family Medicine 05/04/21 12/10/22 Julita Urbina MD [address] [place] [address], [address] [place] [address] [email or web address] PCP - General Internal Medicine 12/11/22 documented as of this encounter Additional Source Comments The information contained in this document represents components of the legal health record. It is not the complete legal health record.[facility]
--- OUTSIDE RECORDS SUMMARY | 2025-08-30 15:04 | XMS_ITS | Encounter Summary ---
Author Organization [facility] Address [address] [place] [address] Phone Care Team Providers Care Oleomargarine Maker Name Role Phone Richard Springer MD Unavailable [phone] Scott Roe MD Unavailable [phone] Thelma Abarca MD Unavailable [phone] Johanna Fields MD Unavailable [phone] Rakan Avila MD Unavailable [phone] Richard Springer MD Primary Care Provider + Lara Maldonado RNfield operations manager Provider [phone] Antonia Reyes MD Primary Care Provider [email or web address] Clotilde Phillips Primary Care Provider [phone] Julita Urbina MD Primary Care Provider [phone] Encounter Details Date Type Department Care Team (Late st Contact Info) Description 12/25/2018 Ancillary Orders Virtual Department [address] [place] [address] Grzegorz Rashid PA [address] [place] [phone] [email or web address] Other spondylosis, lumbar region Social History Tobacco Use Types Packs/Day Years [...] 11:40 AM EDT Office Visit [facility] [address] [place] [address] Missy Gannon MD [address] [place] [phone] [email or web address] documented as of this encounter Results * XR LUMBOSACRAL SPINE 4 OR MORE VIEWS (2018 1:44 PM EST) Anatomical Region Laterality Modality L-spine Radiographic Luna ging 2018 1:57 PM EST Impressions 2018 2:01 PM EST Very minimal L4-5 and equivocal L3-4 instability during flexion. Stable multilevel degenerative disc disease. POS - [id number] Narrative 2018 2:01 PM EST COMPARISON: 07/02/2018 radiographs FINDINGS: Lateral views were obtained in neutral, flexion, and extension positioning. An AP view was obtained as well as. No acute vertebral body fracture identified. Multilevel degenerative disc changes are stable. There is an approximate 2 mm anterolisthesis of the L4 relation to L5 vertebral bodies during flexion and a more equivocal 2-3 mm anterolisthesis of the L3 in relation to L4 bodies. The seem to reduce in extension. No additional instability demonstrated. Procedure Note Romina Quintana MD - 2018 COMPARISON: 07/02/2018 radiographs FINDINGS: Lateral views were obtained in neutral, flexion, and extensionpositioning. An AP view was obtained as well as. No acute vertebral bodyfracture identified. Multilevel degenerative disc changes are stable.There is an approximate 2 mm anterolisthesis of the L4 relation to P5vflvphlvv bodies during flexion and a more equivocal 2-3 mmanterolisthesis of the L3 in relation to L4 bodies. The seem to reduce inextension. No additional instability demonstrated. IMPRESSION: Very minimal L4-5 and equivocal L3-4 instability during flexion. Stablemultilevel degenerative disc disease. POS - [id number] Grzegorz ELPE IMG XR SPINE Final Resul t documented in this encounter Visit Diagnoses Diagnosis Other spondylosis, lumbar region Other spondylosis, lumbar region documented in this [...] documented as of this encounter Care Teams Oleomargarine Maker Relationship Specialty Start Date End Date Richard Springer MD [address] [place] [address] [email or web address] PCP - General Family Medicine 07/22/18 05/15/20 Lara Maldonado RN [address] [place] [address] [email or web address] PCP - General Internal Medicine 05/16/20 12/21/20 Antonia Reyes MD [email or web address] PCP - General Family Medicine 12/22/20 05/03/21 Clotilde Phillips FNP [address] [place] [address], [address] [place] [address] [email or web address] PCP - General Family Medicine 05/04/21 12/10/22 Julita Urbina MD [address] [place] [address] [email or web address] PCP - General Internal Medicine 12/11/22 Richard Springer MD [address] [place] [address] [email or web address] Historical LMR Provider 08/10/17 12/21/20 Scott Roe MD [address] [place] [address] [email or web address] Historical LMR Provider 08/10/17 12/21/20 Thelma Abarca MD [address] [place] [address] Historical LMR Provider 08/10/17 1 Johanna Fields MD [address] [place] [address] Historical LMR Provider 08/10/17 1 Rakan Avila MD [address] [place] [address] Historical LMR Provider 08/10/17 1 documented as of this encounter Additional Source Comments The information contained in this document represents components of the legal health record. It is not the complete legal health record.[facility]
== END 2025-08-30 12:58 | disposition home or self-care (01) ==
LOC: HO.MRI 12:57
PROVIDERS: PCP Internal Medicine; Visit Provider Nurse Practitioner Family
DX: M51.369 Other intervertebral disc degeneration, lumbar region without mention of lumbar back pain or lower extremity pain (principal); M54.16 Radiculopathy, lumbar region; M47.816 Spondylosis without myelopathy or radiculopathy, lumbar region
CPT/HCPCS: 72158; A9585

== ENCOUNTER 2025-09-06 14:19 | Outpatient (AMB) | payer OTHER, SELFPAY ==
--- OUTSIDE RECORDS SUMMARY | 2013-04-20 23:00 | XMS_ITS | Encounter Summary ---
Author Organization [facility] Address [address] [place] [address] Phone Care Team Providers Care Tape Making Machine Operator Name Role Phone Unavailable Primary Care Provider Unavailabl e Encounter Details Date Type Department Care Team (Late st Contact Info) Description 04/21/2013 Hospital Encounter [facility],Outside Imaging 30 [place] [address] System, Provider Not In, [facility] [address] [address] Social History Tobacco Use Types Packs/Day Years [...] 10:15 PM EDT Evangelina Boland RN * [place] Suicide Severity Rating Scale (Screener/Recent Self-Report) Question [...] 11:40 AM EDT Office Visit [facility] [address] [place] [address] Missy Gannon MD [address] [place] [address] [email or web address] documented as of this encounter Procedures [...] It is not the complete legal health record.[facility]
--- OUTSIDE RECORDS SUMMARY | 2013-07-16 23:00 | XMS_ITS | Encounter Summary ---
Author Organization [facility] Address [address] [place] [address] Phone Care Team Providers Care Rhythmic Gymnastics Coach Name Role Phone Unavailable Primary Care Provider Unavailabl e Encounter Details Date Type Department Care Team (Late st Contact Info) Description 07/17/2013 Hospital Encounter [facility],Outside Imaging [address] [place] [address] System, Provider Not In, [facility] [address] [address] Social History Tobacco Use Types Packs/Day Years [...] you interested in more education? Not on flavoi e 12/03/2024 Are you concerned about learning? [...] 10:15 PM EDT Evangelina Boland RN * [place] Suicide Severity Rating Scale (Screener/Recent Self-Report) Question [...] 11:40 AM EDT Office Visit [facility] [address] [place] [address] Missy Gannon MD [address] [place] [address] [email or web address] documented as of this encounter Procedures Procedure Name Priority Date/Time Associated Diagnosis Comments BI US BREAST OUTSIDE (NO INTERPRETATION) Routine 07/17/2013 12:00 AM EDT documented in this encounter Results * US Breast Outside (No Interpretation) (07/17/2013 12:00 AM EDT) Narrative SYSTEMGENERATED, DOCUMENTATION - 07/26/2020 10:27 AM EDT This study is for PACS [...] It is not the complete legal health record.[facility]
--- OUTSIDE RECORDS SUMMARY | 2013-07-16 23:05 | XMS_ITS | Encounter Summary ---
Author Organization [facility] Address [address] [place] [address] Phone Care Team Providers Care Business Process Manager Name Role Phone Unavailable Primary Care Provider Unavailabl e Encounter Details Date Type Department Care Team (Late st Contact Info) Description 07/17/2013 12:05 AM EDT Hospital Encounter [facility],Outside Imaging [address] [place] [address] System, Provider Not In, [place] [address] Social History Tobacco Use Types Packs/Day Years [...] Risk Indicated 07/04/2024 10:15 PM EDT Evangelina Boland, [place]RI[place] * [place] Suicide Severity Rating Scale (Screener/Recent Self-Report) Question Answer Date of Assessment Author 1. Wish to be (Past 1 Month) No 024 10:15 PM EDT Evangelina Monge, RN 2. Non-Specific Active Suici denisse Thoughts (Past 1 Month) No 07/04/2024 10:15 PM EDT Lakia Monge, RN 6. Suicidal Behavior (Lifetime) No 10:15 PM EDT Evangelina Monge RN documented as of this encounter Plan of Treatment Upcoming Encounters Date Type Department Care Team (Late st Contact Info) Description 01/19/2026 11:40 AM EDT Office Visit [facility] [address] [place] [address] Missy Gannon MD [address] [place] [address] [email or web address] [email or web address] documented as of this encounter Procedures Procedure Name Priority Date/Time Associated Diagnosis Comments BI MAMMOGRAM OUTSIDE (NO INTERPRETATION) Routine 07/17/2013 12:05 AM EDT documented in this encounter Results * Mammogram Outside (No Interpretation) (07/17/2013 12:05 AM EDT) Narrative SYSTEMGENERATED, DOCUMENTATION - 07/26/2020 10:36 AM EDT This study is for PACS [...] It is not the complete legal health record.[facility]
[2025-09-06 14:21] VITALS: BP 150/96; PULSE 89; RESP 16; O2SAT 96; BMI 22.8
--- NOTE | 2025-09-06 14:21 | MHC.OFFVIS ---
Vital Signs 09/06/25 14:21 Height 5 ft 7.5 in Weight 148 lb BMI 22.8 BP 150/96 H Blood Pressure Location Lt brachial Position Sitting Respiration 16 Pulse 89 Pulse Source Pulse Oximeter Pulse Oximetry (%) 96 Oxygen Delivery Method Room Air Intake Visit Reasons: MRI follow up Press Tender Smoke Signal Required: No Accompanied by: Self / Same As Patient Allergies No Known Allergies Allergy (Verified 09/06/25 14:21) HPI Comments Details: The patient is a 74-year-old female presenting with back pain and numbness in the left leg. The pain has been recurring, primarily affecting the left leg, with numbness extending down the left leg and intermittently right leg. Recent lumbar MRI showed advanced left subarticular disc herniation at L5-S1 compressing the left S1 nerve root. Multilevel spondylosis resulting in bilateral neuroforamina stenosis at L5-S1 and left L2-3 encroaching the exiting nerve roots. Grade 1 anterolisthesis at L4-5 resulting in bilateral neuroforamina stenosis encroaching the exiting nerve roots, consistent with her back and leg symptoms. The patient has a history of osteoporosis, confirmed by a recent bone scan. There is also a noted slippage at L4-S5 and L1-L3, with associated spinal stenosis at L4-L5. Previous back surgery was performed on the left side at L4-L5, and the current issues are below this surgical site. 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 Most movements, especially bending, lifting and walking limit her work capacity and homemaking activities. She finds partial relief with resting, adjusting her positions, heat therapy and NSAIDs. Denies any recent cough, cold, infection, fever or any significant changes in medical history since last office visit. - Affect: Pain impacts daily activities and psychological wellbeing, as indicated by the patient's concern about worsening symptoms. - Analgesia: Current medications include Aleve, Tylenol, and ibuprofen; oxycodone was effective in the past and is prescribed for short-term use. - Adverse Effects: No adverse effects from current medications were reported. 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 - Aberrant Drug Related Behaviors: No aberrant behaviors reported; patient is advised to use oxycodone responsibly. PRIOR: The patient is a 74-year-old female presenting with chronic pain in the right thigh and sciatica. She reports a similar trajectory on her left side, which previously resulted in back surgery in October 2018, where L4 and L5 were debrided to relieve nerve compression. The surgery was performed at [facility] by Dr. Suazo. The patient has a history of falling off a horse in 2005, resulting in rib fractures and a cracked pelvis on the left side. She was diagnosed with osteoporosis in 2023, which is more severe in the right hip. She has not continued physical therapy after recent initial visit at [facility]. She previously was receiving back injections at [facility]. The patient experiences chronic low back pain, which radiates from the right lower back to the buttock, thigh, calf, and side of the foot, sparing the heel. She reports numbness in the left ankle and calf, as well as in the neck, which has been worsening over time. Bending backwards exacerbates the back pain, while bending forward provides relief. The patient has scoliosis, spondylosis, degenerative disc changes, sacroiliac joint pain and osteoporosis, which contribute to her back pain. 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 Driving exacerbates her pain, and she has not had MRIs for her hip or back. The patient reports tachycardia, particularly when lying down at night, which affects her sleep. Her levothyroxine dosage was recently adjusted by her Apron Worker, but the issue persists. Patient reports history of thyroidectomy in 1997, unclear why, denies cancer or Grave's history. She plans to follow up with her providers regarding this. - Onset: Chronic, worsening over past 6 months, similar trajectory to previous left side pain - Quality: Radiating, aching, shooting pain from right lower back to buttock, thigh, calf, and side of the foot - Exacerbating factors: Bending backwards, driving, heavy lifting, climbing, prolonged walking or standing - Relieving factors: Bending forward, acupuncture, meloxicam, prednisone trial and cyclobenzaprine - Interference: Affects daily activities, worsens by late afternoon - Affect: Pain impacts sleep and daily activities - Analgesia: Uses lidocaine patches; pain worsens to 7/10 by late afternoon - Adverse Effects: Thin skin limits use of ibuprofen - Activities of Daily Living: Pain affects functioning, especially in the afternoon - Aberrant Drug Related Behaviors: None reported [facility] Medical History (Updated 09/06/25 @ 14:25 by MIGUEL Brink) Vitamin D deficiency Raynauds disease ADD (attention deficit disorder) Age-related osteoporosis without current pathological fracture Myofascial muscle pain Neck stiffness Sacroiliitis Chronic lower back pain Surgical History History of back surgery (~2019) History of right shoulder replacement H/O thyroidectomy Social History (Updated 08/01/25 @ 16:45 by MIGUEL Brink) Household Members: Spouse Housing: House Housing Other:: Lives 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 Alcohol intake: never Patient Tobacco Use Status: Never used Tobacco Review of Systems Const Details: - Musculoskeletal: Reports right leg pain and left leg numbness, low back pain - Neurological: Reports numbness in the left leg; denies bladder or bowel dysfunction or saddle anesthesia - General: Denies groin pain, abdominal pain, fever, cough, infection, rash, dizziness, or chest pain All systems reviewed & are unremarkable except as noted in HPI and below Physical Exam Vital Signs: Last Vital Signs Pulse 89 09/06/25 14:21 Resp 16 09/06/25 14:21 BP 150/96 H 09/06/25 14:21 Pulse Ox 96 09/06/25 14:21 Oxygen Delivery Method Room Air 09/06/25 14:21 BMI result Body Mass Index 22.8 General: Appears afebrile. Moderate distress due to pain. Alert and oriented. Mood and affect appropriate. Follows and participates in conversation appropriately. Respiratory effort is unlabored. No cough. Able to transition from sit to stand unassisted. Ambulates with bilaterally normal heel strike and toe off, reports LLE weakness with numbness. General: Yes no CVA tenderness Back/Spine/Pelvis Other: Limited lumbar ROM due to pain. Lumbar extension reproduces moderate pain, flexion forward and bending causes mild symptoms. Demonstrates 5/5 right and 4.5/5 left strength of quadriceps bilaterally as well as flexion/dorsiflexion of bilateral feet against resistance. 2+ pedal pulses bilaterally. Straight leg rise with dorsiflexion positive bilaterally. +1 patellar and achilles reflexes bilaterally. Facet loading test positive bilaterally. Samson?s, Pelvic compression and Stinchfield tests are positive on the right. Mild groin pain with right I/E hip rotations. Valsalva maneuver is positive. Back: no CVA tenderness Cervical Spine: cervical ROM normal, cervical muscular tenderness, pain with cervical ROM and No Cervical spine tenderness Thoracic/Lumbar Spine: thoracic and lumbar spine normal to inspection, Thoracic/lumbar spine scar(s), Lasegue's sign positive on the right and localized, pain with thoraco-lumbar ROM, paraspinal muscle tenderness, thoraco-lumbar ROM limited, No thoracic spinal tenderness and lumbar spinal tenderness (L4-S1) Pelvis: buttock tenderness on the right Sacroiliac joints: bilaterally tender to palpation Extrem General: Yes capillary refill normal, Yes no clubbing, cyanosis or edema and Yes no calf tenderness Results Reviewed Results Reviewed: MR LUMBAR SPINE WITHOUT AND WITH CONTRAST 08/30/25 CLINICAL INFORMATION: M 51.369. COMPARISON: None available. TECHNIQUE: MRI of the lumbar spine was obtained using routine sequences with and without contrast. Intravenous contrast: Total of 6.5 mL gadolinium based (Gadavist) without reported immediate complications FINDINGS: Last rib-bearing vertebra labeled T12. There is a subtle bone marrow STIR signal in the endplates of L2-3 and L5-S1. Bone marrow inhomogeneity throughout the axial skeleton. Multilevel marginal osteophyte formation and endplate irregularity, decreased intervertebral disc height and signal throughout the axial skeleton. Intrinsic hyperintense T1 bone lesion at L3 likely intraosseous hemangioma. Grade 1 anterolisthesis L4-5. Grade 1 retrolisthesis L1 to and L2-3. Conus medullaris ends at inferior endplate of L1 with normal signal. No abnormal enhancement within the neural elements of the thecal sac, central spinal canal or prevertebral compartment. No enhancing mass in the prevertebral compartment or within the neural elements of the thecal sac. T12-L1: No herniated disc. No neuroforamina stenosis. L1-2: Broad-based disc bulging. Facet joint hypertrophy. Reduced AP diameter of the thecal sac and neuroforamina. L2-3: Broad-based disc bulging. Facet joint and ligamentum flavum hypertrophy. Reduced AP diameter thecal sac and neuroforamina pronounced in the left side. L3-4: Broad-based disc bulging. Facet joint and ligamentum flavum hypertrophy. Central spinal canal and bilateral neuroforamina stenosis likely encroaching the neural elements. L4-5: Broad-based disc bulging. Facet joint hypertrophy. Reduced AP diameter of thecal sac. Bilateral neuroforamina stenosis encroaching the L4 exiting nerve roots. Probable left hemilaminectomy. L5-S1: There is a left subarticular nonenhancing isointense T2 signal abnormality within the left midline ventral epidural/subdural compartment encroaching posterior compressing left S1 nerve roots. Broad-based disc bulging. Facet joint hypertrophy. Bilateral neuroforamina stenosis compressing the exiting nerve roots. IMPRESSION: Concerning left subarticular disc herniation at L5-S1 compressing the left S1 nerve root. Multilevel spondylosis resulting in bilateral neuroforamina stenosis at L5-S1 and left L2-3 encroaching the exiting nerve roots. Grade 1 anterolisthesis at L4-5 resulting in bilateral neuroforamina stenosis encroaching the exiting nerve roots. No abnormal enhancement. Osteopenia versus osteoporosis. Assessment & Plan Assessment & Plan (1) Lumbar disc herniation with radiculopathy: Code(s): M51.16 - Intervertebral disc disorders with radiculopathy, lumbar region Category: Medical (2) Chronic lower back pain: Code(s): M54.50 - Low back pain, unspecified; G89.29 - Other chronic pain Category: Medical (3) Lumbar post-laminectomy syndrome: Code(s): M96.1 - Postlaminectomy syndrome, not elsewhere classified Category: Social Hx (4) Lumbar radiculopathy: Code(s): M54.16 - Radiculopathy, lumbar region Category: Medical (5) Lumbar degenerative disc disease: Code(s): M51.369 - Other intervertebral disc degeneration, lumbar region without mention of lumbar back pain or lower extremity pain Category: Medical (6) Spondylolisthesis, lumbar region: Code(s): M43.16 - Spondylolisthesis, lumbar region Category: Medical Plan The plan involves referring the patient for Neurosurgical consultation to address the herniated disc at L5-S1 compressing the S1 nerve root. I encouraged her to bring her to the Neurosurgical consultation to ensure he is informed about her condition and the treatment plan. We also discussed treatments for axial low back pain, including diagnostic lumbar medial branch blocks for potential Sprint PNS trial vs RFA. A short-term prescription of oxycodone is provided for severe pain management. Narcan script sent along. Side effects and precautions were discussed with patient. All questions and concerns have been answered and patient agreed with the treatment plan. Follow up after Neurosurgical evaluation and sooner as needed. Patient was informed and verbally consented to the use of an ambient scribe for clinic note documentation during this visit. Orders: Referrals Neuro Spine Referral M51.16 - Intervertebral disc disorders with radiculopathy, lumbar region Medications: New oxycodone Partial Fill upon patient request. 5 mg PO Q12H PRN 20 tabs 0RF pain (scale score 7-10) 10 days G89.29 - Other chronic pain, M51.16 - Intervertebral disc disorders with radiculopathy, lumbar region, M54.50 - Low back pain, unspecified, M96.1 - Postlaminectomy syndrome, not elsewhere classified naloxone 4 mg/actuation (Narcan) spray 1 dose into ONE nostril; alternate nostrils w each dose until help arrives 4 mg intranasal Q2M PRN 2 ea 0RF opioid overdose Coding Level of Care Code Est Pt Level 4 (38994) Complex EM visit Add On G2211 Diagnoses Lumbar disc herniation with radiculopathy M51.16 Chronic lower back pain M54.50; G89.29 Lumbar post-laminectomy syndrome M96.1 Lumbar radiculopathy M54.16 Lumbar degenerative disc disease M51.369 Spondylolisthesis, lumbar region M43.16
--- OUTSIDE RECORDS SUMMARY | 2025-09-07 04:17 | XMS_ITS | Encounter Summary ---
Author Organization [facility] Address [address] [place] [address] Phone Care Team Providers Care Mechatronics Technician Name Role Phone Richard Springer MD Unavailable [phone] Scott Roe MD Unavailable [phone] Thelma Abarca MD Unavailable [phone] Johanna Fields MD Unavailable [phone] Rakan Avila MD Unavailable [phone] Lara Maldonado RNmarketing researcher Provider [phone] Antonia Reyes MD Primary Care Provider [email or web address] Clotilde Phillips GEOLOGY PROFESSOR Primary Care Provider [phone] Julita Urbina MD Primary Care Provider [phone] Encounter Details Date Type Department Care Team (Late st Contact Info) Description 07/26/2020 Ancillary Orders [facility],Outside Imaging [address] [place] [address] System, Provider Not In, PhD [address] [address] Social History Tobacco Use Types Packs/Day Years [...] 11:40 AM EDT Office Visit [facility] [address] [place] [address] Missy Gannon MD [address] [place] [address] [email or web address] documented as of this encounter Results * [...] documented as of this encounter Care Teams Mechatronics Technician Relationship Specialty Start Date End Date Lara Maldonado RN [address] [place] [address] PCP - General Internal Medicine 05/16/20 12/21/20 Antonia Reyes MD [email or web address] PCP - General Family Medicine 12/22/20 05/03/21 Clotilde Phillips FNP [address] [place] [address] 7 [place] [address] [email or web address] PCP - General Family Medicine 05/04/21 12/10/22 Julita Urbina MD [address] [place] [address] [email or web address] PCP - General Internal Medicine 12/11/22 Richard Springer MD [address] [place] [address] [email or web address] Historical LMR Provider 08/10/17 12/21/20 Scott Roe MD [address] [place] [address] [email or web address] Historical LMR Provider 08/10/17 12/21/20 Thelma Abarca MD [address] [place] [address] Historical LMR Provider 08/10/17 1 Johanna Fields MD [address] [place] [address] Historical LMR Provider 08/10/17 1 Rakan Avila MD [address] [place] [address] Historical LMR Provider 08/10/17 1 documented as of this encounter Additional Source Comments The information contained in this document represents components of the legal health record. It is not the complete legal health record.[facility]
--- OUTSIDE RECORDS SUMMARY | 2025-09-07 04:18 | XMS_ITS | Encounter Summary ---
Author Organization [facility] Address [address] [place] [address] Phone Care Team Providers Care Congressional Assistant Name Role Phone Richard Springer MD Unavailable [phone] Scott Roe MD Unavailable [phone] Thelma Abarca MD Unavailable [phone] Johanna Fields MD Unavailable [phone] Rakan Avila MD Unavailable [phone] Lara Maldonado RNshow jumping instructor Provider [phone] Antonia Reyes MD Primary Care Provider [email or web address] Clotilde Phillips ACCOUNTS PAYABLE CLERK Primary Care Provider [phone] Julita Urbina MD Primary Care Provider [phone] Encounter Details Date Type Department Care Team (Late st Contact Info) Description 07/26/2020 Ancillary Orders [facility],Outside Imaging [address] [place] [address] System, Provider Not In, PhD [address] [address] Social History Tobacco Use Types Packs/Day Years [...] 11:40 AM EDT Office Visit [facility] [address] [place] [address] Missy Gannon MD [address] [place] [address] [email or web address] documented as of this encounter Results * [...] documented as of this encounter Care Teams Congressional Assistant Relationship Specialty Start Date End Date Lara Maldonado RN [address] [place] [address] PCP - General Internal Medicine 05/16/20 12/21/20 Antonia Reyes MD [email or web address] PCP - General Family Medicine 12/22/20 05/03/21 Clotilde Phillips FNP [address] [place] [address] 7 [place] [address] [email or web address] PCP - General Family Medicine 05/04/21 12/10/22 Julita Urbina MD [address] [place] [address] [email or web address] PCP - General Internal Medicine 12/11/22 Richard Springer MD [address] [place] [address] [email or web address] Historical LMR Provider 08/10/17 12/21/20 Scott Roe MD [address] [place] [address] [email or web address] Historical LMR Provider 08/10/17 12/21/20 Thelma Abarca MD [address] [place] [address] Historical LMR Provider 08/10/17 1 Johanna Fields MD [address] [place] [address] Historical LMR Provider 08/10/17 1 Rakan Avila MD [address] [place] [address] Historical LMR Provider 08/10/17 1 documented as of this encounter Additional Source Comments The information contained in this document represents components of the legal health record. It is not the complete legal health record.[facility]
--- OUTSIDE RECORDS SUMMARY | 2025-09-07 04:18 | XMS_ITS | Encounter Summary ---
Author Organization [facility] Address [address] [place] [address] Phone Care Team Providers Care Sas Programmer Name Role Phone Julita Urbina MD Primary Care Provider [phone] Encounter Details Date Type Department Care Team (Late st Contact Info) Description 08/30/2025 Orders Only [facility] [place] [address] Unknown, Unknown, Social History Tobacco Use Types Packs/Day Years [...] 11:40 AM EDT Office Visit [facility] [address] [place] [address] [place] [address] Missy Gannon MD [address] [place] [address] documented as of this encounter Procedures Procedure Name Priority Date/Time Associated Diagnosis Comments OUTSIDE IMAGING Routine 08/30/2025 3:37 PM EST documented in this encounter Results * Outside Imaging Report Only (08/30/2025 3:37 PM EST) us Unknown Unknown MD KUMAR XR CHEST Edited Result - Final documented in this encounter Visit Diagnoses Not on filedocumented in this encounter Additional Health Concerns Assessment Noted Time PHQ-2 Depression Total Score: 0 12/03/19 23 9:54 AM EST documented as of this encounter Care Teams Sas Programmer Relationship Specialty Start Date End Date Julita Urbina MD [address] [place] [address], [address] [place] [address] [email or web address] PCP - General Internal Medicine 12/11/22 documented as of this encounter Additional Source Comments The information contained in this document represents components of the legal health record. It is not the complete legal health record.[facility]
--- OUTSIDE RECORDS SUMMARY | 2025-09-07 04:19 | XMS_ITS | Encounter Summary ---
Author Organization [facility] Address [address] [place] [address] Phone Care Team Providers Care Childbirth Educator Name Role Phone Richard Springer MD Unavailable [phone] Scott Roe MD Unavailable [phone] Thelma Abarca MD Unavailable [phone] Johanna Fields MD Unavailable [phone] Rakan Avila MD Unavailable [phone] Lara Maldonado RNterritory outside sales manager Provider [phone] Antonia Reyes MD Primary Care Provider [email or web address] Clotilde Phillips NUCLEAR MEDICINE TECH Primary Care Provider [phone] Julita Urbina MD Primary Care Provider [phone] Encounter Details Date Type Department Care Team (Late st Contact Info) Description 07/26/2020 Ancillary Orders [facility],Outside Imaging [address] [place] [address] System, Provider Not In, PhD [address] [address] Social History Tobacco Use Types Packs/Day Years [...] 11:40 AM EDT Office Visit [facility] [address] [place] [address] Missy Gannon MD [address] [place] [address] documented as of this encounter Results * [...] documented as of this encounter Care Teams Childbirth Educator Relationship Specialty Start Date End Date Lara Maldonado RN [address] [place] [address] PCP - General Internal Medicine 05/16/20 12/21/20 Antonia Reyes MD [email or web address] .[email or web address] PCP - General Family Medicine 12/22/20 05/03/21 Clotilde Phillips FNP [address] [place] [address] 7 [place] [address] [email or web address] PCP - General Family Medicine 05/04/21 12/10/22 Julita Urbina MD [address] [place] [address] [email or web address] PCP - General Internal Medicine 12/11/22 Richard Springer MD [address] [place] [address] [email or web address] Historical LMR Provider 08/10/17 12/21/20 Scott Roe MD [address] [place] [address] [email or web address] Historical LMR Provider 08/10/17 12/21/20 Thelma Abarca MD [address] [place] [address] Historical LMR Provider 08/10/17 1 Johanna Fields MD [address] [place] [address] Historical LMR Provider 08/10/17 1 Rakan Avila MD [address] [place] [address] Historical LMR Provider 08/10/17 1 documented as of this encounter Additional Source Comments The information contained in this document represents components of the legal health record. It is not the complete legal health record.[facility]
--- OUTSIDE RECORDS SUMMARY | 2025-09-07 04:19 | XMS_ITS | Encounter Summary ---
Author Organization [facility] Address [address] [place] [address] Phone Care Team Providers Care Chrome Plater Name Role Phone Richard Springer MD Unavailable [phone] Scott Roe MD Unavailable [phone] Thelma Abarca MD Unavailable [phone] Johanna Fields MD Unavailable [phone] Rakan Avila MD Unavailable [phone] Lara Maldonado RNr&d lab technician Provider [phone] Antonia Reyes MD Primary Care Provider [email or web address] Clotilde Phillips OPTOMETRIC AIDE Primary Care Provider [phone] Julita Urbina MD Primary Care Provider [phone] Encounter Details Date Type Department Care Team (Late st Contact Info) Description 07/26/2020 Ancillary Orders [facility],Outside Imaging [address] [place] [address] System, Provider Not In, PhD [address] [address] Social History Tobacco Use Types Packs/Day Years [...] 11:40 AM EDT Office Visit [facility] [address] [place] [phone] Missy Gannon MD [address] [place] [phone] [email or web address] documented as of this [...] documented as of this encounter Care Teams Chrome Plater Relationship Specialty Start Date End Date Lara Maldonado RN [address] [place] [id number] PCP - General Internal Medicine 05/16/20 12/21/20 Antonia Reyes MD [email or web address] PCP - General Family Medicine 12/22/20 05/03/21 Clotilde Phillips FNP [address] [place] [address] [address] [place] [address] [email or web address] PCP - General Family Medicine 05/04/21 12/10/22 Julita Urbina MD [address] [place] [phone] [email or web address] PCP - General Internal Medicine 12/11/22 Richard Springer MD [address] [place] [phone] [email or web address] Historical LMR Provider 08/10/17 12/21/20 Scott Roe MD [address] [place] [address] [email or web address] Historical LMR Provider 08/10/17 12/21/20 Thelma Abarca MD [address] [place] [address] Historical LMR Provider 08/10/17 1 Johanna Fields MD [address] [place] [address] Historical LMR Provider 08/10/17 1 Rakan Avila MD [address] [place] [address] Historical LMR Provider 08/10/17 1 documented as of this encounter Additional Source Comments The information contained in this document represents components of the legal health record. It is not the complete legal health record.[facility]
--- OUTSIDE RECORDS SUMMARY | 2025-09-07 04:20 | XMS_ITS | Clinical Summary ---
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 TAKES 1/4 tab for hair loss Active levothyroxine (SYNTHROID, LEVOTHROID) 150 MCG tabletIndication s:Medication refill Take 1 tablet (150 mcg total) by mouth every morning. 90 tablet 3 024 Active LORazepam (ATIVAN) 0.5 MG tabletIndication s:Anxiety Take 1 tablet (0.5 mg total) by mouth daily as needed for anxiety. 15 tablet 2 025 Active azelastine (ASTELIN) 137 mcg (0.1 %) nasal spray USE 2 SPRAY(S) IN EACH NOSTRIL TWICE DAILY 30 mL 12 025 Active propranoloL (INDERAL) 10 MG immediate release tabletIndication s:Performance anxiety Take 1 tablet (10 mg total) by mouth 3 (three) times a day as needed (public speaking or performances). For Public speaking and performances 30 tablet 025 Active risedronate (ACTONEL) 150 MG tablet Take 1 tablet (150 mg total) by mouth every 30 (thirty) days. with water on empty stomach, nothing by mouth or lie down for next 30 minutes. 3 tablet 3 025 Active cyclobenzaprine (FLEXERIL) 5 MG tabletIndication s:Neck stiffness,Myofas cial muscle pain Take 1 tablet (5 mg total) by mouth 2 (two) times a day as needed (for muscle tightness/spasm ). 20 tablet 025 Active lisdexamfetamine (VYVANSE) 70 MG capsuleIndicatio ns:Attention deficit hyperactivity disorder (ADHD), combined type Take 1 capsule (70 mg total) by mouth every morning. Pt. may request partial fill 30 capsule Active cholecalciferol (VITAMIN D3) 2,000 unit capsule Take by mouth every other day. 2024 Discontinued lisdexamfetamine (VYVANSE) 70 MG capsuleIndicatio ns:Attention deficit hyperactivity disorder (ADHD), combined type Take 1 capsule (70 mg total) by mouth every morning. Pt. may request partial fill 30 capsule 025 2024 Discontinued(R eorder) sulfamethoxazole -trimethoprim (BACTRIM DS) 800-160 mg per tablet Take 1 tablet (160 mg of trimethoprim total) by mouth 2 (two) times a day for 3 days. 6 tablet 025 2024 Active Problems Problem Noted Date Diagnosed Date Status post total thyroidectomy 07/05/2025 Assessment & Plan (07/08/2025 8:23 PM EDT): Patient had total thyroidectomy [address] Warner for goiter, assumed benign. Recalls diagnosis of Magi's thyroiditis. No palpable tissue in the thyroid bed. Strong family history of Magi's thyroiditis. Weakness of pelvic floor 06/30/2025 Atrophic vaginitis 06/30/2025 Hypertonic bladder 06/30/2025 Neck stiffness 06/30/2025 Assessment & Plan (06/30/2025 10:56 AM EDT): Neck pain is improved but continues with neck stiffness which has been persistent over several months. - Continue with conservative measures of relative rest, stretching, heating pad, and NSAIDs (except while on prednisone). - Reviewed potential chronic nature of symptoms and benefit of physical therapy and/or transition of care specialist. She did some acupuncture which helped with pain, but not stiffness. Menopausal and postmenopausal disorder Assessment & Plan (06/30/2025 10:37 AM EDT): >>ASSESSMENT AND PLAN FOR MENOPAUSE WRITTEN ON 05/14/2024 5:09 PM BY JULITA AUGUSTE MD She has recently read an article about HRT and its possible benefits even for persons who have been postmenopausal for >10 years. We discussed the potential risk of medication and she expressed understanding. Will do trial of Climara Pro. Chronic pain of right knee 01/20/2024 Assessment & Plan (01/20/2024 9:41 PM EDT): I suspect that she has arthritis in this knee. Will get x-ray to evaluate for this. Performance anxiety 12/11/2022 Assessment & Plan (12/11/2022 11:55 AM EST): She would like to try a beta danni before performances. Propranolol given. Osteoporosis 07/23/2022 Overview (06/30/2025): Alendronate started 10/2024. >>OVERVIEW FOR OSTEOPENIA OF LUMBAR SPINE WRITTEN ON 11/13/2024 1:43 PM BY JULITA AUGUSTE MD 12/2023: Alendronate started Assessment & Plan (07/08/2025 8:45 PM EDT): 74-year-old woman with history of multiple traumatic fractures but no fragility fracture was diagnosed with osteopenia on screening DEXA in 2021 with lowest T- score of -2.4 at the femoral neck bilaterally with high hip fracture risk of 3.7% by FRAX. Her last DEXA in 09/2024 showed progression to osteoporosis with right femoral neck T-score of -2.5. She tried alendronate in 10/2024 for about 3 months and had some sick feeling to her stomach and stopped it. She retried the alendronate around February 2025 but stopped it again because it threw off her schedule especially with taking the levothyroxine concomitantly. She was interested in trying Evenity. We reviewed her bone density images. Also discussed basic bone physiology, treatment options with antiresorptive's and anabolic's. Her osteoporosis may not be severe enough to warrant Evenity as a first-line therapy. We discussed monthly preparations of bisphosphonates like Actonel or Boniva. Also discussed that on the day when she would take the bisphosphonate she would not take her levothyroxine. She would double up on her levothyroxine the following day to prevent interactions. -Patient would like to try Actonel monthly. Rx sent. -Discussed the importance of adequate calcium, vitamin D intake regular weightbearing exercises and fall prevention. -Since she is getting about 800 mg of calcium from diet daily consistently she does not need to take 2 Tums nightly. Goal calcium is about 1200 mg daily combined from food and supplement. -She was on 5000 IU D3 daily for a while but she stopped several months ago. Her last 25-OHD level was at the upper limit of normal at the end of April. Suggested to resume about 1000 IU D3 daily or use up to 5000 IUs once a month during the wintertime. -Monitor collagen CTX about 6 to 8 months after started the Actonel - Repeat DEXA after 10/16/2026. Assessment & Plan (06/30/2025 12:43 PM EDT): Osteopenia originally diagnosed in 2021, progressed to osteoporosis per DEXA done 10/06/2024 w/ right total hip t-score -1.8 and right femoral neck t-score -2.5. - Continues on alendronate weekly which was started Oct 2024, although this causes some stomach upset. - Followed by [facility] endocrinology, last visit note reviewed. They had discussed changing to Prolia or Reclast, she was more interested in Evenity but this was advised against due to lack of demonstrated efficacy in preventing hip fracture. - No history of compression fx. No evidence of fracture per recent lumbosacral spine and hip x-rays. Osteoporosis is not likely contributory to recently worse low back or hip pain. - Continue regular weightbearing activity as tolerated. Assessment & Plan (06/30/2025 10:35 AM EDT): >>ASSESSMENT AND PLAN FOR OSTEOPENIA OF LUMBAR SPINE WRITTEN ON 05/14/2024 5:07 PM BY JULITA AUGUSTE MD She is interested in HRT for bone health among other possible benefits. She understands the potential benefits of HRT as well as the risk of HRT. Assessment & Plan (04/04/2025 11:13 AM EDT): She remains on alendronate. Assessment & Plan (03/12/2025 10:49 AM EDT): The patient was diagnosed with osteopenia in 2021 progressed to osteoporosis in 2023. Risk factors for osteoporosis include family history, age, menopause, use of antiepileptic medications, SSRIs and proton pump inhibitors for short duration. She also has history of vitamin D deficiency. She has lost 1.5 inches in height and has had multiple traumatic fractures but no fragility fractures. She gets adequate dietary calcium intake and takes vitamin D inconsistently 5000 units daily. Her last vitamin D levels were deficient. At this point I will request biochemical workup for secondary causes of osteoporosis that have not previously been done. Today I gave the patient a copy of osteoporosis information including medications. She informs me that she has GI upset with the use of alendronate and I told her that she can use other medications such as zoledronic acid which is a yearly infusion done at the hospital or she can use Prolia subcutaneous injection every 6 months. She did inquire about the use of Evenity which is a monthly injectable medication and is an anabolic hormone. This works very well for the spine but there is no evidence for hip fracture reduction. Furthermore she will not be covered for this medication since she has not had spinal fracture. She feels that she rather just continue alendronate. I did request salivary cortisol studies. She does not think that she is cushingoid and she does not look cushingoid and she is most likely correct that she is not cushingoid. This is just a screening study. She does not feel that she needs it. I told her that if she decides to do it fine if she does not then that is fine as well. I did give the patient a follow-up appointment in 3 months and she is going to make this appointment. However, she states that if there is no abnormalities that she will just follow with her primary care physician. She will return if there is any abnormalities in the lab work that need to be addressed. Shoulder arthritis 12/19/2021 Assessment & Plan (12/19/2021 6:55 AM EST): Right reverse shoulder replacement is scheduled 05/24/22 with [facility]. 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 Assessment & Plan (05/05/2021 8:03 AM EDT): She is agreeable to trial of trazodone. She will use the klonopin only if needed and we will try a lower PRN dose 0.5 mg. Mixed hyperlipidemia 12/21/2020 Assessment & Plan (06/19/2022 5:37 PM EDT): Reports the lipitor made her tired and she discontinued taking. Assessment & Plan (05/05/2021 8:02 AM EDT): Tolerating lipitor well, continue same. Assessment & Plan (12/21/2020 1:50 PM EST): Found on lipid panel July 2020, with no previous to compare to Was started on atorvastatin, which she has been taking She is also restarted vegetarian diet Plan to recheck lipid panel before next visit Myofascial muscle pain 02/05/2019 Assessment & Plan (06/30/2025 10:54 AM EDT): Muscle tightness in the neck and upper back seems myofascial, possibly posture-related although underlying degenerative changes in the cervical spine are also possible. - A prescription for cyclobenzaprine 5 mg will be provided, to be taken as needed up to twice daily. - She is advised that muscle relaxers can cause drowsiness and should not be taken when she needs to be alert or drive. Assessment & Plan (02/06/2019 1:52 PM EDT): Myofascial pain rec heat massage andNSAIDs and feel that resuming swimming would bwe a good idea Raynaud's phenomenon without gangrene 11/19/2018 Assessment & Plan (11/19/2018 10:32 PM EST): With appears to be Raynaud's in feet the second and third toe of the right foot fourth toe on the left could be but doubt that this is any connective tissue disease. She does have a fungal toenail growing back do not think that is causing a problem does not have any sign of paronychia I. Did recommend a trial of nitroglycerin paste as she cannot tolerate calcium channel danni due to low blood pressure side effect of headache Bunion of great toe 10/31/2018 Assessment & Plan (11/19/2018 10:30 PM EST): With very large symptomatic bunion right foot greater than left referral for Dr. Merino in [facility] Assessment & Plan (10/31/2018 11:04 AM EST): Moderately severe and symptomatic bunion left right great toe dislikes most of the doctors as visit coming up with Dr. Merino up at [place] who she likes. Now she is wearing wide toe box shoes Attention deficit hyperactivity disorder (ADHD) 08/24/2018 Assessment & Plan (05/14/2024 5:02 PM EDT): Elida. Assessment & Plan (06/19/2022 5:37 PM EDT): Elida, continue the vyvfionae. Assessment & Plan (03/25/2022 9:08 AM EDT): Elida, continue vyvanse. Assessment & Plan (12/19/2021 6:56 AM EST): Stable, continue the vyvanse, follow up 3 months in office. Assessment & Plan (09/19/2021 6:09 AM EST): Stable, continue with the vyvanse. Assessment & Plan (06/16/2021 10:15 PM EDT): Stable, continue the vyvanse Assessment & Plan (05/05/2021 8:07 AM EDT): Continue vyvanse 60 mg daily. Assessment & Plan (12/21/2020 1:51 PM EST): Taking Vyvanse PDMP does not reveal any other prescribers of controlled substances monitor Assessment & Plan (08/24/2018 9:20 PM EST): Stable w same meds Anxiety 08/24/2018 Assessment & Plan (03/25/2022 9:08 AM EDT): Continue ativan 0.25 mg PRN at HS. Assessment & Plan (12/21/2020 1:46 PM EST): Needing clonazepam nightly for sleep Self described addicted Avoid any dose increases going forward Monitor, evaluate for weaning in the future Assessment & Plan (05/26/2019 9:33 AM EDT): Spent 10 minutes listening the patient concerns about her and their marriage issues recommend that she continue her own counseling sessions she does not work on medication at this time who told her to try and consider if other family members noticed him to may be to have them confronted him. The next step would be for him to seek help. Assessment & Plan (05/06/2019 12:35 PM EDT): rec bring up concerns at counseling and leona discussion when ttoo much work and upkeep of a beloved homestead is too much Postoperative hypothyroidism 08/24/2018 Overview (07/08/2025): Total thyroidectomy in 1997 for benign goiter. Underlying Magi's thyroiditis Assessment & Plan (07/08/2025 8:46 PM EDT): Over replaced on 150 mcg LT4 daily. Last TSH 0.14 with elevated free T4 of 1.9 on 05/19/2025. Has atrial fibrillation on exam and subtle hand tremor. -Will skip levothyroxine tomorrow and thereafter will decrease dose to 6.5 tablets/week= 139 mcg daily average -Repeat TSH in 6 to 8 weeks. -Reviewed symptoms of under and over replacement, patient to call if concerned. Assessment & Plan (05/14/2024 4:59 PM EDT): She is due for a check of her TSH. Assessment & Plan (10/08/2023 8:46 PM EST): Will get updated TSH. Assessment & Plan (12/21/2020 1:47 PM EST): Taking levothyroxine faithfully Last TSH check July 2020, TSH on the low end of normal We will check free T4 as well next time, to make sure were not over correcting Assessment & Plan (08/24/2018 9:21 PM EST): Appears euthyroid last TSH 2017 Major depressive disorder, recurrent 08/24/2018 Assessment & Plan (06/30/2025 10:36 AM EDT): >>ASSESSMENT AND PLAN FOR DEPRESSION WRITTEN ON 12/21/2020 1:46 PM BY DERICK REYES MD Taking lamotrigine only for mood symptoms Discussed with patient that I am not comfortable titrating this class of medications for mood disorders she has already tried many of the first and second line medications, e.g. SSRIs, SNRIs, TCAs Recommend evaluation with psychiatry for other options Assessment & Plan (02/05/2022 6:59 AM EDT): I agree with resuming wellbutrin starting at 150 mg daily, she reports she took this with good effect for 10 years in past and discontinued 3-4 yrs ago during a remission of sx. Multiple situational stressors are contributing with present sx re- emergence. I also thinks it is reasonable to increase the lamictal to 200 mg daily. I did given a small rx for ativan to take for panic attack. Chronic bilateral low back pain with right-sided sciatica 07/02/2018 Assessment & Plan (06/30/2025 10:39 AM EDT): Acute on chronic low back and hip pain (R>L), likely multifactorial with bilateral hip osteoarthritis, multilevel DDD, lower lumbar facet arthropathy and right sacroiliitis. - Recently seen by sports medicine ([facility]) who recommended a right SIJ injection and referred her to physical therapy. Full visit note reviewed. - Continues with home exercises, although she feels these are not particularly helpful. - She has a history of decompression laminectomy of lumbar spine for a bulging disc on the left done in Oct 2018 (surgeon: Dr Arango); she inquires today about a return to neurosurgery. No new nerve symptoms reported - denies pain, numbness, or weakness in bilateral LE, saddle anesthesia, bladder/bowel dysfunction. There are no indications for an updated MRI, it is not likely she is currently a surgical case. She was encouraged to follow-up if any new sx develop, red flags reviewed. - Pain otherwise managed with lidocaine patches and OTC NSAIDs PRN. Plan for prednisone taper and adding low dose muscle relaxer PRN, see above. Long-term pain management remains tenuous, pt agrees to pain management specialty referral. Assessment & Plan (07/02/2018 10:45 PM EDT): Patient with persistent leg pain posterior aspect and also in the back is most consistent with a possible sacroiliitis. Patient was hoping for an injection she has had them in the past. Nothing on exam to suggest sciatica per se. Sacroiliitis 07/02/2018 Assessment & Plan (06/30/2025 12:34 PM EDT): Right sided sacroiliitis, SIJ steroid injection was recommended by sports medicine but she has elected not to return to that office. Discussed usual systemic treatment with NSAIDs but she requests a course of prednisone, risks/benefits/side effects reviewed. - Given her osteoarthritis of multiple joints and current flare of sacroiliitis, a prednisone taper is reasonable, rx provided. Reinforced this is a temporary measure and long-term tx is not appropriate. No current s/sx of systemic inflammatory arthritis. - She is advised to avoid NSAIDs while on prednisone but can continue using Tylenol and lidocaine patches. Chronic hip pain, bilateral 06/09/2018 Assessment & Plan (02/06/2019 1:51 PM EDT): She with left hip pain which is chronic improved after surgery but again recurred after a fall recently on the ice. No sign of any radiculopathy on exam Does appear to have a trigger point in that area appears to be muscular not related to disc did discuss possible treatment with the chiropractic physical therapy or injection she tripped wants to try the latter. Assessment & Plan (07/23/2018 8:35 PM EDT): Feel due to lumbar radiculopathy. Await MRI results referral to Dr. Cruz physiatry Assessment & Plan (06/10/2018 11:16 AM EDT): Reassured pt that w excellent ROM dont see it as jt path no labral tear which she worries abt But likely muscle trigger pt likely in piriformis and pt requested injection wo sono help and option would be injection w radiographic help Resolved Problems Problem Noted Date Diagnosed Date Resolved Date Rectal prolapse 01/20/2024 06/30/2025 Overview (06/30/2025): symptomatic stage II prolapse w/ cystocele and rectocele, s/p anterior/posterior repair 09/04/2024 Assessment & Plan (01/20/2024 9:41 PM EDT): She appears to have rectal prolapse on exam. She was referred to urogynecology to discuss options. Lymphadenopathy 10/08/2023 06/30/2025 Assessment & Plan (10/08/2023 8:35 PM EST): We discussed possible causes of her lymphadenopathy. Will get CBC, CMP, LDH and ultrasound. May consider neck CT if needed. Tinnitus of left ear 12/11/2022 024 Assessment & Plan (12/11/2022 11:55 AM EST): She has previously been seen at [facility]. She has had a tube placed but no other answer as to the cause of her tinnitus. She was told she has hearing loss but not to the level that a hearing aid was recommended. She would like an evaluation with [facility]. Referral placed. Mucocele of lip 09/19/2021 06/30/2025 Assessment & Plan (12/11/2022 11:56 AM EST): She is planning on surgical resection of this as she often bites it. Assessment & Plan (09/19/2021 6:09 AM EST): She scheduled with an oral surgeon about this lesion but was notified at appointment time that they did not accept her insurance, she did have her dentist check this and they recommended a biopsy; I encouraged she call insurance regarding which oral surgery practice works with her plan, she requests referral to [facility] - reviewed I would place referral but I am doubtful if they would treat an oral mucosal lesion, she expresses understanding and will call them to clarify. Onychomycosis of toenail 11/19/2018 Assessment & Plan (12/19/2021 6:55 AM EST): Advised to repeat the LFT panel now. Assessment & Plan (09/19/2021 6:11 AM EST): She completed ~10-11 weeks of the 12 wk course of terbinafine, feels the nail is growing in healthy, she'll follow up PRN if the issue persists. Assessment & Plan (06/16/2021 10:17 PM EDT): Repeat LFT now Assessment & Plan (05/05/2021 8:07 AM EDT): She desires oral lamisil at this time, she had a recent normal LFT; we reviewed need to monitor the LFT and that this medication is associated with rare cases of severe or fatal liver injury; I did send in an initial 6 week course, she will have repeat LFT when this is complete. Assessment & Plan (11/19/2018 10:32 PM EST): She with fungal toenails at least the first and second did lose a second nail before but still appears to be thickened as an fungus did recommend not treating it with systemic antifungals Ganglion cyst of foot 10/31/20182024 Assessment & Plan (11/19/2018 10:33 PM EST): She with recurrent ganglion cyst wants to have it injected again Assessment & Plan (10/31/2018 11:06 AM EST): Probable ganglion cyst somewhat symptomatic discussed treatment options including excision she is going to follow up with Dr. jain as may recur after the injection of steroids and its excision is the usual remedy Lumbar stenosis with neurogenic claudication 9 05/04/2021 Spinal stenosis of lumbar re gion with neurogenic claudication 10/23/2018 05/04/2021 Right lumbar radiculopathy 07/23/2018 0 05/04/2021 Assessment & Plan (08/24/2018 9:20 PM EST): Unhappy w physiatry and doing better w PT + L5S1 HNP ? fragment wo weakess andno change bowels /bladderand pain tolrable w tramadol Assessment & Plan (07/23/2018 8:39 PM EDT): Patient with low back pain with radiation down to her foot laterally with absent ankle jerk reflex consistent with L5 radiculopathy also has some quad atrophy and hamstring weakness MRI ordered hopefully will be covered before she sees a physiatry wrist Dr. Cruz who is referred. Tramadol as needed hold on any steroids and no muscle relaxants Arthralgia of left lower leg 06/09/2018 06/30/2025 Assessment & Plan (06/10/2018 11:14 AM EDT): Pt w chr L leg pain in radicular sx but denies sciatica and excellent SLR ? SI jt but tender area apart fr that jt . Discussed possible ref to Dr Roe again [ in past injections wo benefit] or sports medicine Dr Guerrero [facility] Piriformis syndrome of left side 04/24/2018 05/04/2021 Assessment & Plan (04/25/2018 1:45 PM EDT): Patient is low back pain could be sacroiliac joint as it radiates down to her ankle she is tender there and but also piriformis which she had in the past and seems the same did recommend physiatry referral and physical therapy she is requesting just pain medication for now to work it out as Tylenol with Codeine did not help so we will give her a short course of oxycodone and recommend to consider follow-up as above Encounters Date Type Department Care Team Description 09/01/[address] [place] [address] Julita Auguste MD uti concern 08/30/2025 Orders Only [facility] [address] [place] [address] Unknown, Javi, 07/26/[address] [place] [address] Julita Auguste MD Medication Refill 07/21/[address] [place] [address] Julita Auguste MD Fax (Pain management referral) 07/20/[address] [place] [address] Julita Auguste MD Medication Refill; Vyvanse 07/08/2025 Telephone [facility] [address] [place] [address] Erma Palacios Referral 07/05/2025 9:20 AM EDT Office Visit [facility] [address] [place] [address] Missy Gannon MD Postoperative hypothyroidism (Primary Dx); Status post total thyroidectomy; Age-related osteoporosis without current pathological fracture 06/30/2025 9:00 AM EDT Office Visit [address] [place] [address] Katey Noble CNP Chronic bilateral low back pain with right-sided sciatica (Primary Dx); Sacroiliitis; Neck stiffness; Myofascial muscle pain; Age-related osteoporosis without current pathological fracture 06/28/[address] [place] [address] Julita Auguste MD Referral 06/21/[address] [place] [address] Julita Auguste MD Medication Refill; Vyvanse from Last 3 Months Immunizations Immunization Administration Dates Next Due COVID-19 (Pre-08/12) Simran Vaccine, rS-Ad26, PF 12/29/2020 COVID-19 (Pre-08/12) Moderna Vaccine, mRNA, PF 07/11/2022 COVID-19, Unspecified Formulation 08/12/2021,08/2021 [id number] FORMULATION 11/07/2009 INFLUENZA, SPLIT VIRUS, TRIV ALENT W/ PRESERVATIVE IM 07/22/2012,09/07/2011,07/10/2010 Influenza High-Dose Quadriva lent Preservative Free IM 10/22/2023,07/28/2020 Influenza High-Dose Trivalen t Preservative Free IM 09/21/2024,07/23/2018,09/17/2017,12/06,08/16/2015 Influenza Quadrivalent Adjuv anted Preservative Free IM 07/11/2022,08/11/2021 Influenza Quadrivalent Prese rvative Free IM 10/05/2014 Influenza Trivalent Adjuvant ed Preservative free IM 08/15/2019 Influenza trivalent preserva tive free intradermal 07/08/2013 Influenza, Unspecified Formulation 11/07,11/16/2008,08/19/2007,08/21,08/07/2002 Pneumococcal conjugate PCV13 08/21/2018,08/16/20 15 Pneumococcal polysaccharide PPSV23 07/28/2020 RSV Vaccine (monovalent, adjuvanted) 10/10/2023 Rabies Fibroblast Culture 06/21/2020,,06/03/2020,06/01 Td (adult),2 Lf Tetanus Toxo id, PF, Adsorbed 06/15/2021 Td, unspecified formulation 08/05/2001 Tdap 03/03/2011 Zoster live 07/10/2010 Zoster recombinant 06/13/2020,11/28/2019 Family History Medical History Relation Comments Breast cancer Maternal Aunt Breast cancer Mother Cancer Mother breast Hypertension Mother Relation Status Comments Father Maternal Aunt Mother Social History Tobacco Use Types Packs/Day Years Used Date Smoking Tobacco: Never Smokeless Tobacco: Never Tobacco Cessation:Counseling Given: Not Answered Alcohol Use Standard Drinks/Week Comments Not Currently [...] Orientation Straight 06/28/2021 10 :41 AM EDT Last Filed Vital Signs Vital Sign Reading Time Taken Comments Blood Pressure 120/70 07/05/2025 9:31 AM EDT Pulse 80 07/05/2025 9:31 AM EDT Temperature 36 C (96.8 F) 04/02/2025 10:16 AM EDT Respiratory Rate 16 07/05/2024 12:17 AM EDT Oxygen Saturation 99% 07/05/2025 9:31 AM EDT Inhaled Oxygen Concentration - - Weight 67.6 kg (149 lb) 07/05/2025 9:31 AM EDT Height 170.4 cm (5' 7.09 ) 07/05/2025 9:31 AM ED T Body Mass Index 23.28 07/05/2025 9:31 AM EDT Plan of Treatment Upcoming Encounters Date Type Department Care Team (Late st Contact Info) Description 01/19/2026 11:40 AM EDT Office Visit [facility] [address] [place] [address] [place] [address] Missy Gannon MD [address] [place] [phone] [email or web address] Health Maintenance Due Date Last Done Comments COLOGUARD 1994 FOBT 1994 SIGMOIDOSCOPY 1994 VIRTUAL COLONOSCOPY 1994 FIT TEST 05/09/2022 05/09/2021 DEPRESSION SCREENING 12/03/2023 12/03/2022 INFLUENZA VACCINE (#1) 2025 , 10/22/2023, 07/11/2022, Additional history exists COVID-19 VACCINE ( season) 2025 02/24/2024, 07/11/2022, 07/11/2022, Additional history exists LIPID PANEL 03/08/2026 03/08/2021, 07/25/2020 TSH LEVEL 05/19/2026 05/19/2025, 09/20, 08/10/2022, Additional history exists Adult Td,Tdap Booster 06/15/2031 06/15/2021 , 03/03/2011, 08/05/2001 COLONOSCOPY 02/19/2035 02/19/2025 COLORECTAL CANCER SCREENING 02/19/2035 ZOSTER VACCINES Completed 06/13/2020, 02/05/2020, 07/10/2010 PNEUMOCOCCAL VACCINES (50+ years) Completed 07/28/2020, 08/21/2018, 08/16/2015 HEPATITIS C SCREENING Completed 08/18/2021 RSV VACCINE Completed 10/10/2023 OSTEOPOROSIS SCREENING INITIAL (ONE-TIME) Completed 10/16/2024, 07/19/2022 SMOKING STATUS SCREENING (Once After 26 Yrs) Completed 06/30/2025 HEPATITIS A VACCINES Aged Out No long er eligible based on patient's age to complete this topic HIB VACCINES Aged Out No longer eligi ble based on patient's age to complete this topic IPV VACCINES Aged Out No longer eligi ble based on patient's age to complete this topic MENINGOCOCCAL VACCINES (ACWY) Aged Out No longer eligible based on patient's age to complete this topic MENINGOCOCCAL VACCINES (B) Aged Out N o longer eligible based on patient's age to complete this topic Medical Devices Implanted Type Area Back End Web Developer Device Identifier Shelf Expiration Date Model / Serial / Lot Wrist Description:Titanium left wr ist Right Shoulder Description:Right shoulder r eplacement Procedures Procedure Name Priority Date/Time Associated Diagnosis Comments OUTSIDE IMAGING Routine 08/30/2025 3:37 PM EST TSH WITH REFLEX Routine 05/19/2025 3:36 PM EDT Age-related osteoporosis without current pathological fracture Acquired hypothyroidism HM COLONOSCOPY FOR RESULT ENTRY ONLY Routine 02/19/2025 5:27 PM EDT BD DXA AXIAL (SPINE) WITH HIP Routine 10/16/2024 2:39 PM EST Osteopenia of lumbar spine HEPATITIS C ANTIBODY, QUALITATIVE Routine 08/18/2021 12:14 PM EDT Need for hepatitis C screening test HC BLOOD OCCULT FECAL HGB DETER IA QUAL FECES 1-3 Routine 05/09/2021 6:43 PM EDT Screen for colon cancer LIPID PANEL Routine 03/08/2021 12:20 PM EDT Mixed hyperlipidemia from Last 3 Months or Most Recently Relevant to Health Maintenance Results * Outside Imaging Report Only (08/30/2025 3:37 PM EST) us Unknown Unknown IMG XR CHEST Edited Result - Final * (ABNORMAL) TSH with reflex (05/19/2025 3:36 PM EDT) TSH 0.13(L) 0.27 - 4.20 uIU/mL [facility] Blood 05/19/2025 3:36 PM EDT 05/19/2025 3:43 PM EDT us Petey Waters DO LAB BLOOD BKR ORDERABLES Final R esult [facility] [address] [place] [address] * HM COLONOSCOPY FOR RESULT ENTRY ONLY (02/19/2025 5:27 PM EDT) us Historical Provider HEALTH MAINTENANCE Edited Result - Final * BD DXA AXIAL (SPINE) WITH HIP (10/16/2024 2:39 PM EST) Anatomical Region Laterality Modality Bone Density Bone Density 10/16/2024 2:37 PM EST Impressions 10/16/2024 2:43 PM EST Interpretation: Osteoporosis. Narrative 10/16/2024 2:43 PM EST Referred By: JULITA AUGUSTE Indications: Osteoporosis and Postmenopausal Scanner: Mydish A with serial# of [id number] located at [facility] Bone Density Scan (DXA) 10/16/24 Details of prior DXA scans are available by clicking View Image BMD T- Z- Skeletal Site gm/cm2 score score BMD Change Since Prior Scan ------ ----- ----- PA Spine (L1-L4) 0.971 -0.70 1.70 0.042 (4.5%)* since 07/19/2022 Total Hip (Right) 0.723 -1.80 0.00 -0.031 (-4.1%)* since 07/19/2022 Femoral Neck (Right) 0.571 -2.50 -0.40 -0.012 (stable) since 07/19/2022 ------ ----- ----- * Denotes significant change when >= 0.022 g/cm2 for the spine, 0.027 g/cm2 for the total hip, 0.029 g/cm2 for the femoral neck. Interpretation: Osteoporosis. Technical Quality: Imaging of all sites was of adequate quality. FRAX: A FRAX(r) score is not provided because the patient has osteoporosis, which is generally an indication for treatment. Additional Information: -World Health Organization criteria classify adults based on lowest T-score at PA spine, hip or forearm: Normal (T-score >= -1.0), Osteopenia (T-score between -1 and -2.5), or Osteoporosis (T-score <= -2.5). At [facility], T-scores are compared to peak bone density of a young white gender matched reference population. - For premenopausal women and men under the age of 50, Z-scores (comparison to age, gender, and ethnicity matched reference population) are used: Above expected range for age (Z-score >= 2.0), Within expected range of age (Z-score 1.9 to -1.9), or Below expected range for age (Z-score <= -2.0). - The Bone Health and Osteoporosis Foundation recommends that treatment be considered in men aged more than 50 years and in postmenopausal women with ANY of the following: Prior hip or vertebral fractures; T-score of <= -2.5 at the PA spine or hip; or 10 year fracture probability by FRAX of >= 3% for the hip or >= 20% for major osteoporotic fracture. - The FRAX algorithm (https://www.isidoro.ac.uk/FRAX/tool.aspx) is designed to predict 10-year fracture risk in treatment-naive adults between the ages of 40 and 90. It is not intended to be used in those receiving pharmacologic osteoporosis treatment. - Including race/ethnicity in the generation of T- or Z-scores or in the FRAX calculation is complicated, and currently undergoing active review to ensure that we can give patients the best information on their risk of fracture. -Some prior studies may not be compatible with our comparison software. -Click on View Full Report to see subsequent pages with images and prior bone density results. Reviewed By: Petra Wynn MD on 10/16/2024 14:43:42 Procedure Note Petra Wynn MD - 10/16/2024 Referred By: JULITA AUGUSTE Indications: Osteoporosis and Postmenopausal Scanner: Mydish A with serial# of [id number] located at [facility] Bone Density Scan (DXA) 10/16/24 Details of prior DXA scans are available by clicking View Image BMD T- Z- Skeletal Site gm/cm2 score score BMD Change Since Prior Scan ------ ----- PA Spine (L1-L4) 0.971 -0.70 1.70 0.042 (4.5%)* since07/19/2022 Total Hip (Right) 0.723 -1.80 0.00 -0.031 (-4.1%)* since07/19/2022 Femoral Neck (Right) 0.571 -2.50 -0.40 -0.012 (stable) since07/19/2022 ------ ----- * Denotes significant change when >= 0.022 g/cm2 for the spine, 0.027g/cm2 for the total hip, 0.029 g/cm2 for the femoral neck. Interpretation: Osteoporosis. Technical Quality: Imaging of all sites was of adequate quality. FRAX: A FRAX(r) score is not provided because the patient hasosteoporosis, which is generally an indication for treatment. Additional Information: -World Health Organization criteria classify adults based on lowestT-score at PA spine, hip or forearm: Normal (T-score >= -1.0), Osteopenia (T-score between -1 and -2.5), or Osteoporosis (T-score <= -2.5). At [facility], T-scores are compared to peak bone density of a young white gender matched reference population. - For premenopausal women and men under the age of 50, Z-scores(comparison to age, gender, and ethnicity matched reference population) are used:Above expected range for age (Z-score >= 2.0), Within expected range of age (Z-score 1.9 to -1.9), or Below expected range for age (Z-score <= -2.0). - The Bone Health and Osteoporosis Foundation recommends that treatment be considered in men aged more than 50 years and in postmenopausal women with ANY of the following: Prior hip or vertebral fractures; T-score of <= -2.5 at the PA spine or hip; or 10 year fracture probability by FRAX of >= 3%for the hip or >= 20% for major osteoporotic fracture. - The FRAX algorithm (https://www.isidoro.ac.uk/FRAX/tool.aspx) is designed to predict 10-year fracture risk in treatment-naive adultsbetween the ages of 40 and 90. It is not intended to be used in those receiving pharmacologic osteoporosis treatment. - Including race/ethnicity in the generation of T- or Z-scores or in the FRAX calculation is complicated, and currently undergoing active review to ensure that we can give patients the best information on their risk of fracture. -Some prior studies may not be compatible with our comparison software. -Click on View Full Report to see subsequent pages with images and prior bone density results. Reviewed By: Petra Wynn MD on 10/16/2024 14:43:42 IMPRESSION: Interpretation: Osteoporosis. Julita Auguste MD IMG BD BONE DENSITY DEXA Fi nal Result * Hepatitis C antibody, qualitative (08/18/2021 12:14 PM EDT) HCV NON-REACTIV E NON-REACTI VE [facility] Blood 08/18/2021 12:1 4 PM EDT 08/18/2021 4:32 PM EDT us Clotilde Phillips FEED RESEARCH TECHNICIAN LAB BLOOD BKR ORDERABLES Destini l Result [facility] [address] [place] [address] * Fecal immunochemical test x1 (FIT) (05/09/2021 6:43 PM EDT) Immuno Fecal Occult Negative Negative [facility] Stool (Stool) 05/09/2021 6:4 3 PM EDT 05/09/2021 6:44 PM EDT us Clotilde Phillips FEED RESEARCH TECHNICIAN LAB BODY FLUIDS AND STOOL ORD ERABLES Final Result Performing Organization Address City/[facility]/ZIP Co de Phone Number [address] [address] * (ABNORMAL) Lipid panel (03/08/2021 12:20 PM EDT) HDL 91 mg/dL [facility] Comment: Interpretation <40 mg/dL: Low HDL cholesterol (major risk factor for CHD) Greater than or equal to 60 mg/dL: High HDL cholesterol ( negative risk factor for CHD) HDL - cholesterol is affected by a number of factors, e.g. smoking, excerise, hormones, sex and age. CHOLESTEROL 210 0 - 240 mg/dL [facility] TRIGLYCERIDES 69 30 - 160 mg/dL [facility] LDL 105 50 - 129 mg/dL [facility] Comment: LDL levels in terms of risk for coronary heart disease: <100 mg/dL: Optimal 100-129 mg/dL: Near or above optimal 130-159 mg/dL: Borderline high 160-189 mg/dL: High >190 mg/dL: Very High CARDIAC RISK RATIO 2.3(L) 3.3 - 4.4 C [facility] Blood 03/08/2021 12:2 0 PM EDT 03/08/2021 12:26 PM EDT us Derick Reyes MD LAB BLOOD BKR ORDERABLES Final R esult Performing Organization Address City/[facility]/ZIP Co de Phone Number [address] [address] from Last 3 Months or Most Recently Relevant to Health Maintenance Insurance [employer] Advance Directives For more information, please contact: [phone] (9AM - 5PM [facility], Saturday-Saturday) Documents on File Type Date Recorded 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 It is not the complete legal health record.[facility]
--- OUTSIDE RECORDS SUMMARY | 2025-09-07 04:20 | XMS_ITS | Encounter Summary ---
Author Organization [facility] Address [address] [place] [address] Phone Care Team Providers Care Clinical Lab Scientist Name Role Phone Richard Springer MD Unavailable [phone] Scott Roe MD Unavailable [phone] Thelma Abarca MD Unavailable [phone] Johanna Fields MD Unavailable [phone] Rakan Avila MD Unavailable [phone] Richard Springer MD Primary Care Provider + Lara Maldonado RNpublic aid eligibility assistant Provider [phone] Antonia Reyes MD Primary Care Provider [email or web address] Clotilde Phillips Primary Care Provider [phone] Julita Urbina MD Primary Care Provider [phone] Encounter Details Date Type Department Care Team (Late st Contact Info) Description 07/23/2018 Procedure Pass [address] [address] Social History Tobacco Use Types Packs/Day Years [...] 11:40 AM EDT Office Visit [facility] [address] [place] [address] Missy Gannon MD [address] [place] [address] [email or web address] documented as of this encounter Visit Diagnoses Not on filedocumented in this encounter Additional Health Concerns Infection Onset Date Last Indicated Resolved Time CoV-Risk 11/11/2020 11/11/2020 11/21/2020 1:24 AM EST CoV-Risk 11/13/2022 11/13/2022 11/24/2022 1:22 AM EST CoV-Risk Comment:Per Ambulatory Triage Form 11/06/2023 11/06/202311/17 1:22 AM EST COVID-19 07/04/2024 07/04/2024 07/25/2024 1:22 AM EDT documented as of this encounter Care Teams Clinical Lab Scientist Relationship Specialty Start Date End Date Richard Springer MD [address] [place] [address] PCP - General Family Medicine 07/22/18 05/15/20 Lara Maldonado RN [address] [place] [address] [email or web address] PCP - General Internal Medicine 05/16/20 12/21/20 Antonia Reyes MD [email or web address] PCP - General Family Medicine 12/22/20 05/03/21 Clotilde Phillips FNP [address] [place] [address] [address] [place] [address] [email or web address] PCP - General Family Medicine 05/04/21 12/10/22 Julita Urbina MD [address] [place] [address] [email or web address] PCP - General Internal Medicine 12/11/22 Richard Springer MD [address] [place] [address] [email or web address] Historical LMR Provider 08/10/17 12/21/20 Scott Roe MD [address] [place] [address] [email or web address] Historical LMR Provider 08/10/17 12/21/20 Thelma Abarca MD [address] [place] [address] Historical LMR Provider 08/10/17 1 Johanna Fields MD [address] [place] [address] Historical LMR Provider 08/10/17 1 Rakan Avila MD [address] [place] [address] Historical LMR Provider 08/10/17 1 documented as of this encounter Additional Source Comments The information contained in this document represents components of the legal health record. It is not the complete legal health record.[facility]
--- OUTSIDE RECORDS SUMMARY | 2025-09-07 04:20 | XMS_ITS | Encounter Summary ---
Author Organization [facility] Address [address] [place] [address] Phone Care Team Providers Care Medical Underwriter Name Role Phone Julita Urbina MD Primary Care Provider [phone] Encounter Details Date Type Department Care Team (Late st Contact Info) Description 11/29/2023 Procedure Pass [facility] DEPT [address] [place] [address] Social History Tobacco Use Types Packs/Day Years [...] high school, GED, job training, learning the Congol[place] language, technical skills, or developing parenting skills)? [...] AM EDT Office Visit [facility] [address] [place] [address] Missy Gannon MD [address] [place] [address] documented as of this encounter Visit Diagnoses Not on filedocumented in this encounter Additional Health Concerns Infection Onset Date Last Indicated Resolved Time COVID-19 07/04/2024 07/04/2024 07/25/2024 1:22 AM EDT Assessment Noted Time PHQ-2 Depression Total Score: 0 12/03/19 23 9:54 AM EST documented as of this encounter Care Teams Medical Underwriter Relationship Specialty Start Date End Date Julita Urbina MD [address] [place] [address], [address] [place] [address] PCP - General Internal Medicine 12/11/22 documented as of this encounter Additional Source Comments The information contained in this document represents components of the legal health record. It is not the complete legal health record.[facility]
--- OUTSIDE RECORDS SUMMARY | 2025-09-07 04:21 | XMS_ITS | Encounter Summary ---
Author Organization [facility] Address [address] [place] [address] Phone Care Team Providers Care Category Consultant Name Role Phone Julita Urbina MD Primary Care Provider [phone] Encounter Details Date Type Department Care Team (Late st Contact Info) Description 05/16/2023 Procedure Pass [address] [place] [address] Social History Tobacco Use Types Packs/Day Years [...] high school, GED, job training, learning the [place] Island[place] language, technical skills, or developing parenting skills)? [...] AM EDT Office Visit [facility] [address] [place] [address] Missy Gannon MD [address] [place] [address] [email or web address] documented as of [...] documented as of this encounter Care Teams Category Consultant Relationship Specialty Start Date End Date Julita Urbina MD [address] [place] [address] [email or web address] PCP - General Internal Medicine 12/11/22 documented as of this encounter Additional Source Comments The information contained in this document represents components of the legal health record. It is not the complete legal health record.[facility]
--- OUTSIDE RECORDS SUMMARY | 2025-09-07 04:21 | XMS_ITS | Encounter Summary ---
Author Organization [facility] Address [address] [place] [address] Phone Care Team Providers Care Financial Analysis Advisor Name Role Phone Julita Urbina MD Primary Care Provider [phone] Encounter Details Date Type Department Care Team (Late st Contact Info) Description 12/14/2022 Procedure Pass [address] [address] Social History Tobacco Use Types Packs/Day Years [...] GED, job training, learning the [place] language, technical skills, or developing parenting skills)? [...] 11:40 AM EDT Office Visit [facility] [address] [place] [address] Missy Gannon MD [address] [place] [address] documented as of this encounter Visit Diagnoses Not on filedocumented in this encounter Additional Health Concerns Infection Onset Date Last Indicated Resolved Time CoV-Risk Comment:Per Ambulatory Triage Form 11/06/2023 11/06/202311/17 1:22 AM EST COVID-19 07/04/2024 07/04/2024 07/25/2024 1:22 AM EDT Assessment Noted Time PHQ-2 Depression Total Score: 0 12/03/19 9:54 AM EST documented as of this encounter Care Teams Financial Analysis Advisor Relationship Specialty Start Date End Date Julita Urbina MD [address] [place] [address] [address] [place] [address] PCP - General Internal Medicine 12/11/22 documented as of this encounter Additional Source Comments The information contained in this document represents components of the legal health record. It is not the complete legal health record.[facility]
--- OUTSIDE RECORDS SUMMARY | 2025-09-07 04:21 | XMS_ITS | Encounter Summary ---
Author Organization [facility] Address [address] [place] [address] Phone Care Team Providers Care Conference Producer Name Role Phone Julita Urbina MD Primary Care Provider [phone] Encounter Details Date Type Department Care Team (Late st Contact Info) Description 12/12/2022 Procedure Pass [address] [address] Social History Tobacco Use Types Packs/Day Years [...] high school, GED, job training, learning the Haitian language, technical skills, or developing parenting skills)? [...] 11:40 AM EDT Office Visit [facility] [address] [place] [address] Missy Gannon MD [address] [place] [address] documented as of this encounter Visit Diagnoses Not on filedocumented in this encounter Additional Health Concerns Infection Onset Date Last Indicated Resolved Time CoV-Risk Comment:Per Ambulatory Triage Form 11/06/2023 11/06/202311/17 1:22 AM EST COVID-19 07/04/2024 07/04/2024 07/25/2024 1:22 AM EDT Assessment Noted Time PHQ-2 Depression Total Score: 0 12/03/19 9:54 AM EST documented as of this encounter Care Teams Conference Producer Relationship Specialty Start Date End Date Julita Urbina MD [address] [place] [address] 2[address] [place] [address] PCP - General Internal Medicine 12/11/22 documented as of this encounter Additional Source Comments The information contained in this document represents components of the legal health record. It is not the complete legal health record.[facility]
--- OUTSIDE RECORDS SUMMARY | 2025-09-07 04:25 | XMS_ITS | Encounter Summary ---
Author Organization [facility] Address [address] [place] [address] Phone Care Team Providers Care Java Web Developer Name Role Phone Julita Urbina MD Primary Care Provider [phone] Reason for Visit * Reason Onset Date Comments Referral 07/08/2025 Encounter Details Date Type Department Care Team ([facility] st Contact Info) Description 07/08/2025 Telephone [facility] [address] [place] [address] [email or web address] Referral Social History Tobacco Use Types Packs/Day [...] Patient called in regarding the referral to [facility]. Pt would like this faxed to [phone]. Please contact and advise. Central Support Director Plans (Please do not reply to this user; this inbox is not monitored.) Thank you. documented in this encounter Plan of Treatment Upcoming Encounters Date Type Department Care Team (Late st Contact Info) Description 01/19/2026 11:40 AM EDT Office Visit [facility] [address] [place] [address] Missy Gannon MD 22 [facility] 3rd [place] [address] [email or web address] documented as of this encounter Visit Diagnoses Not on filedocumented in this encounter Additional Health Concerns Assessment Noted Time PHQ-2 Depression Total Score: 0 12/03/19 9:54 AM EST documented as of this encounter Care Teams Java Web Developer Relationship Specialty Start Date End Date Julita Urbina MD [address] [place] [address] 2nd [place] [address] PCP - General Internal Medicine 12/11/22 documented as of this encounter Additional Source Comments The information contained in this document represents components of the legal health record. It is not the complete legal health record.[facility]
--- OUTSIDE RECORDS SUMMARY | 2025-09-07 04:26 | XMS_ITS | Patient Health Record ---
Author Organization [facility] Address [address] [place] [address] Care Team Providers Care Bedspread Cutter Hand Name Role Phone Mayur Romero Primary Care Provider Sobeida Abbasi Unavailable [phone] Allergies Allergen (clinical drug ingredient) Drug/Non Drug Allergy documented on EMR Reaction Allergy Type Onset Date Status Penicillin severe Drug Allergy Active Reason For Referral No Information Medications Medication SIG (Take, Route, Fr equency, Duration) Notes Start Date End Date Status Levothyroxine Sodium Active Wellbutrin XL 150 MG 1 tablet in the mor fritz Orally Once a day Active Ritalin LA 30 MG 1 capsule in the mor fritz Orally Once a day Active Problems No Known Problems Plan Of Treatment Pending Test Test Name Order Date [id number], 1-14 01/24/2016 Insurance Providers Payer Name Payer Address Payer Phone Subscriber Number Group Number Insured Name Patient Relationship to Insured Coverage Start Date Coverage End Date [employer] [place] Medicare Advantage One [facility] [address] [place] [address] [id number] Francisco Wakefield Self - patient is the insured Medical (General) History Medical History History ICD Code rheumatoid arthritis Raynauds syndrome Thyroid disorder Surgical History Surgery Date(Month/Year) wrist surgery
--- OUTSIDE RECORDS SUMMARY | 2025-09-07 04:26 | XMS_ITS | Encounter Summary ---
Author Organization [facility] Address [address] [place] [address] Phone Care Team Providers Care Issuer Name Role Phone Julita Urbina MD Primary Care Provider [phone] Encounter Details Date Type Department Care Team (Late st Contact Info) Description 04/12/2023 Procedure Pass [facility] Scan - [address] [address] Social History Tobacco Use Types Packs/Day Years [...] high school, GED, job training, learning the Portuguese language, technical skills, or developing parenting skills)? [...] 11:40 AM EDT Office Visit [facility] [address] [place] [address] Missy Gannon MD [address] [place] [address] [email or web address] documented as of this encounter Visit Diagnoses Not on filedocumented in this encounter Additional Health Concerns Infection Onset Date Last Indicated Resolved Time CoV-Risk Comment:Per Ambulatory Triage Form 11/06/2023 11/06/202311/17 1:22 AM EST COVID-19 07/04/2024 07/04/2024 07/25/2024 1:22 AM EDT Assessment Noted Time PHQ-2 Depression Total Score: 0 12/03/19 23 9:54 AM EST documented as of this encounter Care Teams Issuer Relationship Specialty Start Date End Date Julita Urbina MD [address] [place] [address] [address] [place] [address] [email or web address] PCP - General Internal Medicine 12/11/22 documented as of this encounter Additional Source Comments The information contained in this document represents components of the legal health record. It is not the complete legal health record.[facility]
--- OUTSIDE RECORDS SUMMARY | 2025-09-07 04:27 | XMS_ITS | Encounter Summary ---
Author Organization [facility] Address [address] [place] [address] Phone Care Team Providers Care Slaughterer Religious Ritual Name Role Phone Clotilde Phillips [facility] Primary Care Provider [phone] Julita Urbina MD Primary Care Provider [phone] Encounter Details Date Type Department Care Team (Latest Contact Info) Description 10/17/2021 Transcribe Orders Virtual Department [address] [place] [address] Clotilde Phillips [facility] [address] [facility], [facility] [address] [place] [address] [email or web address] Breast screening (Primary Dx) Social History Tobacco [...] high school, GED, job training, learning the [place] Citizen language, technical skills, or developing parenting skills)? [...] AM EDT Office Visit [facility] [address] [place] [address] Missy Gannon MD [address] [place] [address] [email or web address] documented as of [...] documented as of this encounter Care Teams Slaughterer Religious Ritual Relationship Specialty Start Date End Date Clotilde Phillips FNP [address] [place] [address], [address] [place] [address] [email or web address] PCP - General Family Medicine 05/04/21 12/10/22 Julita Urbina MD [address] [place] [address], [address] [place] [address] [email or web address] PCP - General Internal Medicine 12/11/22 documented as of this encounter Additional Source Comments The information contained in this document represents components of the legal health record. It is not the complete legal health record.[facility]
--- OUTSIDE RECORDS SUMMARY | 2025-09-07 04:27 | XMS_ITS | Encounter Summary ---
Author Organization [facility] Address [address] [place] [address] Phone Care Team Providers Care Comfort Station Supervisor Name Role Phone Richard Springer MD Unavailable [phone] Scott Roe MD Unavailable [phone] Thelma Abarca MD Unavailable [phone] Johanna Fields MD Unavailable [phone] Rakan Avila MD Unavailable [phone] Richard Springer MD Primary Care Provider + Lara Maldonado RNequipment operator warehouse Provider [phone] Antonia Reyes MD Primary Care Provider [email or web address] Clotilde Phillips Primary Care Provider [phone] Julita Urbina MD Primary Care Provider [phone] Encounter Details Date Type Department Care Team (Late st Contact Info) Description 10/23/2018 Procedure Pass OR Admitting Dept - Virtual Department [address] [place] [address] Social History Tobacco Use Types Packs/Day Years [...] 11:40 AM EDT Office Visit [facility] [address] [place] [address] Missy Gannon MD [address] [place] [address] [email or web address] documented as of this encounter Visit Diagnoses [...] documented as of this encounter Care Teams Comfort Station Supervisor Relationship Specialty Start Date End Date Richard Springer MD [address] [place] [address] PCP - General Family Medicine 07/22/18 05/15/20 Lara Maldonado RN [address] [place] [address] [email or web address] PCP - General Internal Medicine 05/16/20 12/21/20 Antonia Reyes MD [email or web address] PCP - General Family Medicine 12/22/20 05/03/21 Clotilde Phillips FNP [address] [place] [address], [address] [place] [address] [email or web address] PCP - General Family Medicine 05/04/21 12/10/22 Julita Urbina MD [address] [place] [address] [email or web address] PCP - General Internal Medicine 12/11/22 Richard Springer MD [address] [place] [address] [email or web address] Historical LMR Provider 08/10/17 12/21/20 Scott Roe MD [address] [place] [address] [email or web address] Historical LMR Provider 08/10/17 12/21/20 Thelma Abarca MD [address] [place] [address] Historical LMR Provider 08/10/17 1 Johanna Fields MD [address] [place] [phone] Historical LMR Provider 08/10/17 1 Rakan Avila MD [address] [place] [address] Historical LMR Provider 08/10/17 1 documented as of this encounter Additional Source Comments The information contained in this document represents components of the legal health record. It is not the complete legal health record.[facility]
--- OUTSIDE RECORDS SUMMARY | 2025-09-07 04:28 | XMS_ITS | Encounter Summary ---
Author Organization [facility] Address [address] [place] [address] Phone Care Team Providers Care Pharmacy Resource Tech Name Role Phone Clotilde Phillips Vane RIVERA Primary Care Provider Julita Urbina MD Primary Care Provider [phone] Encounter Details Date Type Department Care Team (Late st Contact Info) Description 10/17/2021 Procedure Pass [facility] - [address] [place] [address] Social History Tobacco Use Types Packs/Day Years [...] high school, GED, job training, learning the Swazi language, technical skills, or developing parenting skills)? [...] 11:40 AM EDT Office Visit [facility] [address] [place] [address] Missy Gannon MD [address] [place] [address] documented as of this encounter Visit Diagnoses [...] documented as of this encounter Care Teams Pharmacy Resource Tech Relationship Specialty Start Date End Date Clotilde Phillips FNP [address] [place] [address], [address] [place] [address] PCP - General Family Medicine 05/04/21 12/10/22 Julita Uribna MD [address] [place] [address], 2nd [place] [address] [email or web address] PCP - General Internal Medicine 12/11/22 documented as of this encounter Additional Source Comments The information contained in this document represents components of the legal health record. It is not the complete legal health record.[facility]
--- OUTSIDE RECORDS SUMMARY | 2025-09-07 04:28 | XMS_ITS | Encounter Summary ---
Author Organization [facility] Address [address] [place] [address] Phone Care Team Providers Care Area Captain Name Role Phone Richard Springer MD Unavailable [phone] Scott Roe MD Unavailable [phone] Thelma Abarca MD Unavailable [phone] Johanna Fields MD Unavailable [phone] Rakan Avila MD Unavailable [phone] Richard Springer MD Primary Care Provider + Lara Maldonado RNpatient assessment coordinator Provider [phone] Antonia Reyes MD Primary Care Provider [email or web address] Clotilde Phillips Primary Care Provider [phone] Julita Urbina MD Primary Care Provider [phone] Encounter Details Date Type Department Care Team (Late st Contact Info) Description 12/25/2018 Ancillary Orders Virtual Department [address] [place] [address] Grzegorz Rashid PA [address] [place] [address] [email or web address] Other spondylosis, lumbar region Social History Tobacco [...] 11:40 AM EDT Office Visit [facility] [address] [place] [address] Missy Gannon MD [address] [place] [address] [email or web address] documented as of this encounter Results * XR LUMBOSACRAL SPINE 4 OR MORE VIEWS (2018 1:44 PM EST) Anatomical Region Laterality Modality L-spine Radiographic Luna ging 2018 1:57 PM EST Impressions 2018 2:01 PM EST Very minimal L4-5 and equivocal L3-4 instability during flexion. Stable multilevel degenerative disc disease. POS - [id number] Narrative 2018 2:01 PM EST COMPARISON: 07/02/2018 [...] mm anterolisthesis of the L4 relation to J1zvryuyght bodies during flexion and a more equivocal 2-3 mmanterolisthesis of the L3 in relation to L4 bodies. The seem to reduce inextension. No additional instability demonstrated. IMPRESSION: Very minimal L4-5 and equivocal L3-4 instability during flexion. Stablemultilevel degenerative disc disease. POS - [id number] Grzeogrz LEPE IMG XR SPINE Final Resul t documented [...] documented as of this encounter Care Teams Area Captain Relationship Specialty Start Date End Date Richard Springer MD [address] [place] [address] PCP - General Family Medicine 07/22/18 05/15/20 Lara Maldonado RN [address] [place] [address] [email or web address] PCP - General Internal Medicine 05/16/20 12/21/20 Antonia Reyes MD [email or web address] PCP - General Family Medicine 12/22/20 05/03/21 Clotilde Phillips FNP [address] [place] [address], [address] [place] [address] [email or web address] PCP - General Family Medicine 05/04/21 12/10/22 Julita Urbina MD [address] [place] [address] [email or web address] PCP - General Internal Medicine 12/11/22 Richard Springer MD [address] [place] [address] [email or web address] Historical LMR Provider 08/10/17 12/21/20 Scott Roe MD [address] [place] [address] [email or web address] Historical LMR Provider 08/10/17 12/21/20 Thelma Abarca MD [address] [place] [address] Historical LMR Provider 08/10/17 1 Johanna Fields MD [address] [place] [address] Historical LMR Provider 08/10/17 1 Rakan Avila MD [address] [place] [address] Historical LMR Provider 08/10/17 1 documented as of this encounter Additional Source Comments The information contained in this document represents components of the legal health record. It is not the complete legal health record.[facility]
== END 2025-09-06 14:55 | disposition home or self-care (01) ==
LOC: HO.PMC 14:20
PROVIDERS: PCP Internal Medicine; Visit Provider Nurse Practitioner Family
DX: M51.16 Intervertebral disc disorders with radiculopathy, lumbar region (principal); M54.50 Low back pain, unspecified; G89.29 Other chronic pain; M96.1 Postlaminectomy syndrome, not elsewhere classified; M54.16 Radiculopathy, lumbar region; M51.369 Other intervertebral disc degeneration, lumbar region without mention of lumbar back pain or lower extremity pain; M43.16 Spondylolisthesis, lumbar region
CPT/HCPCS: 99214

== ENCOUNTER 2025-09-10 11:32 | Outpatient (AMB) | payer OTHER, SELFPAY ==
--- OUTSIDE RECORDS SUMMARY | 2013-04-20 23:00 | XMS_ITS | Encounter Summary ---
Author Organization [facility] Address [address] [place] [address] Phone Care Team Providers Care Ironworker Wire Fence Erector Name Role Phone Unavailable Primary Care Provider Unavailabl e Encounter Details Date Type Department Care Team (Late st Contact Info) Description 04/21/2013 Hospital Encounter [facility],Outside Imaging [address] [place] [address] System, Provider Not In, [facility] [address] [address] Social History Tobacco Use Types Packs/Day Years [...] AM EDT documented as of this encounter Functional Status * Calculated C-SSRS Risk Score (Lifetime/Recent) Answer Date of Assessment Author No Risk Indicated 07/04/2024 10:15 PM EDT Evangelina Boland RN * [place] Suicide Severity Rating Scale (Screener/Recent Self-Report) Question Answer Date of Assessment Author 1. Wish to be (Past 1 Month) No 024 10:15 PM EDT Evangelina Monge, [place]RI[place] 2. Non-Specific Active Suici denisse Thoughts (Past 1 Month) No 07/04/2024 10:15 PM EDT Lakia Monge RN 6. Suicidal Behavior (Lifetime) No 10:15 PM EDT Evangelina Monge RN documented as of this encounter Plan of Treatment Upcoming Encounters Date Type Department Care Team (Late st Contact Info) Description 01/19/2026 11:40 AM EDT Office Visit [facility] [address] [place] [phone] Missy Gannon MD [address] [place] [phone] [email or web address] documented as of this encounter Procedures Procedure [...] It is not the complete legal health record.[facility]
--- OUTSIDE RECORDS SUMMARY | 2013-07-16 23:00 | XMS_ITS | Encounter Summary ---
Author Organization [facility] Address [address] [place] [address] Phone Care Team Providers Care Business Development Specialist Name Role Phone Unavailable Primary Care Provider Unavailabl e Encounter Details Date Type Department Care Team (Late st Contact Info) Description 07/17/2013 Hospital Encounter [facility],Outside Imaging 30 [place] [address] System, Provider Not In, [facility] [address] [address] Social History Tobacco Use Types Packs/Day Years [...] 10:15 PM EDT Evangelina Boland RN * [place] Suicide Severity Rating Scale (Screener/Recent Self-Report) Question [...] 11:40 AM EDT Office Visit [facility] [address] [place] [address] Missy Gannon MD [address] [place] [phone] [email or web address] documented as of this encounter Procedures [...] It is not the complete legal health record.[facility]
--- OUTSIDE RECORDS SUMMARY | 2013-07-16 23:05 | XMS_ITS | Encounter Summary ---
Author Organization [facility] Address [address] [place] [address] Phone Care Team Providers Care Woodworker Name Role Phone Unavailable Primary Care Provider Unavailabl e Encounter Details Date Type Department Care Team (Late st Contact Info) Description 07/17/2013 12:05 AM EDT Hospital Encounter [facility],Outside Imaging [address] [place] [address] System, Provider [place] In, [place] [address] Social History Tobacco Use Types Packs/Day Years [...] 10:15 PM EDT Evangelina Boland, ANDRI[place] * [place] Suicide Severity Rating Scale (Screener/Recent Self-Report) Question [...] AM EDT Office Visit [facility] [address] [place] [address] Missy Gannon MD [address] [place] [address] [email or web address] documented as of this encounter [...] It is not the complete legal health record.[facility]
--- NOTE | 2025-09-10 11:41 | HO.SPINEOV ---
Intake Visit Reasons: disc herniation at L5-S1 Intake Note: Ms. Wakefield is here today c/o low back pain. MRI done at [facility]. Restaurant Service Manager Required: No Allergies No Known Allergies Allergy (Verified 09/10/25 11:41) Assessment & Plan Assessment & Plan (1) Chronic lower back pain: Code(s): M54.50 - Low back pain, unspecified; G89.29 - Other chronic pain Category: Medical (2) Right hip pain: Code(s): M25.551 - Pain in right hip Category: Medical Plan Dear Tierney, Thank you for referring Mrs Wakefield to our office today. 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 Cameron many years ago with excellent success, who for the last 6 months or more has had a gradual steady increase of pain over her right SI joint region. It will seem to at times connect with a spot on her outer calf. Both areas will flare-up of the same time but there is no distinct connection between the 2 where the pain will radiate directly down into the calf. She does report pain down the front of her thighs right greater than left as well but that is not really the reason that she comes here seeking relief. It is the spot on the right side of her low back/outer hip region. She has taken oxycodone at night because the pain is aggravated when she is sleeping. It is also bothersome when she is up moving around. She can bend forward without any problems and has no pain doing things in a flexed position. Bending backwards however does give her distinct pain and discomfort. She will take ibuprofen and Tylenol as needed. She does acupuncture every other week. She was seen at [facility] and recommended a cortisone injection but she did not think that was really going to get to the bottom of the problem so deferred. PMH: Magi's thyroiditis with goiter, status post thyroidectomy, back surgery in 2019. Other than that she is very active otherwise healthy. Social hx: Does not smoke, drink use any recreational drugs Medications: Vyvanse, levothyroxine, ibuprofen, Tylenol and oxycodone Allergies: None Physical exam: Awake alert oriented no acute distress, she demonstrates pain localizing tenderness over the right SI joint region, finger Abdirahman sign. Strength in the lower extremities is normal, she has an absent right patellar reflex. No pain or tenderness with internal and external rotation of her hip. Imaging review: Lumbar MRI done at [facility] reveals multilevel degenerative disc disease. She has postsurgical changes on the left at L5-S1 with a laminotomy defect. Although the radiologist is suggesting there is a disc herniation, the postcontrast images do not reveal any compression of the nerve. Therefore I think this is scar tissue. The radiologist is also reporting a spondylolisthesis at L4-5 which I do not appreciate. I sent the patient for flexion-extension x-rays standing and although there might be a subtle anterolisthesis there is nothing suggestive of instability. She had a radiology report from [facility] suggesting instability at L4-5 but I am just not seeing similar findings on the imaging here. Impression: 74-year-old female presents with pain on the right outer SI joint/hip region. She has a previous history of a left L5-S1 microdiskectomy done by Dr. Cameron many years ago with great success. The pain she is currently feeling does not feel like nerve pain. She can distinctly tell the difference in it does not feel similar to what she had before her previous back surgery. The pain has been getting steadily worse over the last 6 months. 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 She has diffuse degenerative disc disease and although the radiologist reports there is a disc herniation L5-S1 on the left, I think it is just postsurgical scarring on the postcontrast images. It is on the opposite side of where she is having pain as well, so I do not think it is involved. The radiologist also reports spondylolisthesis at L4-5, with x-rays done at [facility] suggesting there could be instability at this segment. I did the x-rays here today in the office and I do not see any signs of instability. I am not sure what is causing her pain. At this point I think we are still in the diagnostic. We will try to figure out what this could be. She does have a component of leg pain going down her anterior thighs, but I do not see any evidence of central canal stenosis. I am wondering if this might not be SI joint related. I will also send her for an x-ray of the hip just as a precaution. I will review everything with Dr. Falk and get back to the patient with a final plan. Thank you for allowing us to care for your patient. The total time spent with this visit with this patient was 45 minutes reviewing history, physical exam, lumbar imaging review, and implementation of treatment plan or further diagnostic testing Will Falk MD,PhD [facility] Orders: Orders XR hip RT min 2V Today M25.551 - Pain in right hip XR lumbar spine 4V min Today G89.29 - Other chronic pain, M54.50 - Low back pain, unspecified Coding Level of Care Code New Pt Level 4 (06347) Diagnoses Chronic lower back pain M54.50; G89.29 Right hip pain M25.551
--- OUTSIDE RECORDS SUMMARY | 2025-09-10 12:22 | XMS_ITS | Patient Health Record ---
Author Organization [facility] Address [address] [place] [address] Care Team Providers Care Claim Review Medical Director Name Role Phone Mayur Romero Primary Care Provider Sobeida Abbasi Unavailable [phone] Allergies Allergen (clinical drug ingredient) Drug/Non Drug [...] Treatment Pending Test Test Name Order Date 31984-Phlo, 1-14 01/24/2016 Insurance Providers Payer Name Payer Address Payer Phone Subscriber Number Group Number Insured Name Patient Relationship to Insured Coverage Start Date Coverage End Date [employer] [place] Medicare Advantage One [facility] [address] [place] [address] [phone] [id number] Francisco Wakefield Self - patient is the insured Medical (General) History Medical History History ICD Code rheumatoid arthritis Raynauds syndrome Thyroid disorder Surgical History Surgery Date(Month/Year) wrist surgery
--- OUTSIDE RECORDS SUMMARY | 2025-09-10 12:22 | XMS_ITS | Clinical Summary ---
Author Organization [facility] Address [address] [facility] [address] [place] [address] Phone Care Team Providers Care Slitter Creaser Slotter Helper Name Role Phone Julita Auguste MD Primary [...] symptoms and benefit of physical therapy and/or care transition coordinator. She did some acupuncture which helped with [...] causes some stomach upset. - Followed by [facility] endocrinology, last visit note reviewed. They had [...] reverse shoulder replacement is scheduled 05/24/22 with [facility]. 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 Merino in [facility] Assessment & Plan (10/31/2018 11:04 AM EST): Moderately severe and symptomatic bunion left right great toe dislikes most of the doctors as visit coming up with Dr. Merino up at [place] who she likes. Now she is wearing [...] previously been seen at [facility]. She has had a tube placed [...] with her plan, she requests referral to [facility] - reviewed I would place referral [...] wo benefit] or sports medicine Dr Guerrero [facility] Piriformis syndrome of left side 04/24/2018 05/04/2021 [...] Type Department Care Team Description 09/01/[address] [place] [address] Julita Auguste MD uti concern 08/30/2025 Orders Only [facility] [address] [place] [address] Unknown, Javi, 07/26/[address] [place] [address] Julita Auguste MD Medication Refill 07/21/[address] [place] [address] Julita Auguste MD Fax (Pain management referral) 07/20/[address] [place] [address] Julita Auguste MD Medication Refill; Vyvanse 07/08/2025 Telephone [facility] [address] [place] [address] Erma Palacios Referral 07/05/2025 9:20 AM EDT Office Visit [facility] [address] [place] [address] Missy Gannon MD Postoperative hypothyroidism (Primary Dx); Status post total thyroidectomy; Age-related osteoporosis without current pathological fracture 06/30/2025 9:00 AM EDT Office Visit [address] [place] [address] Katey Noble CNP Chronic bilateral low back pain with right-sided sciatica (Primary Dx); Sacroiliitis; Neck stiffness; Myofascial muscle pain; Age-related osteoporosis without current pathological fracture 06/28/[address] [place] [address] Julita Auguste MD Referral 06/21/[address] [place] [address] Julita Auguste MD Medication Refill; Vyvanse from Last 3 Months Immunizations Immunization Administration Dates Next Due COVID-19 (Pre-08/12) Simran Vaccine, rS-Ad26, PF 12/29/2020 COVID-19 (Pre-08/12) Moderna Vaccine, mRNA, PF 07/11/2022 COVID-19, Unspecified Formulation 08/12/2021,08/2021 [id number] FORMULATION 11/07/2009 INFLUENZA, SPLIT VIRUS, TRIV ALENT [...] AM EDT Office Visit [facility] [address] [place] [address] [place] [address] Missy Gannon MD [address] [place] [address] [email or web address] Maintenance Due Date Last Done Comments [...] this topic Medical Devices Implanted Type Area Anthropologist Physical Device Identifier Shelf Expiration Date Model / [...] EDT) TSH 0.13(L) 0.27 - 4.20 uIU/mL [facility] Blood 05/19/2025 3:36 PM EDT 05/19/2025 3:43 PM EDT us Petey Waters DO LAB BLOOD BKR ORDERABLES Final R esult [address] [address] * HM COLONOSCOPY FOR RESULT ENTRY ONLY [...] JULITA AUGUSTE Indications: Osteoporosis and Postmenopausal Scanner: [employer] A with serial# of [id number] located at [facility] Bone Density Scan (DXA) 10/16/24 Details of [...] -2.5), or Osteoporosis (T-score <= -2.5). At [facility], T-scores are compared to peak bone density [...] JULITA AUGUSTE Indications: Osteoporosis and Postmenopausal Scanner: [employer] A with serial# of [id number] located at [facility] Bone Density Scan (DXA) 10/16/24 Details of [...] -2.5), or Osteoporosis (T-score <= -2.5). At [facility], T-scores are compared to peak bone density [...] MD on 10/16/2024 14:43:42 IMPRESSION: Interpretation: Osteoporosis. us Julita Auguste MD IMG BD BONE DENSITY DEXA Fi nal Result * Hepatitis C antibody, qualitative (08/18/2021 12:14 PM EDT) HCV NON-REACTIV E NON-REACTI VE [facility] Blood 08/18/2021 12:1 4 PM EDT 08/18/2021 4:32 PM EDT us Clotilde Phillips EMPLOYEE OPERATIONS EXAMINER LAB BLOOD BKR ORDERABLES Destini l Result [facility] [address] [place] [address] * Fecal immunochemical test x1 (FIT) (05/09/2021 6:43 PM EDT) Immuno Fecal Occult Negative Negative [facility] Stool (Stool) 05/09/2021 6:4 3 PM EDT 05/09/2021 6:44 PM EDT us Clotilde Vane Phillips EMPLOYEE OPERATIONS EXAMINER LAB BODY FLUIDS AND STOOL ORD ERABLES Final Result Performing Organization Address City/[facility]/ZIP Co de Phone Number [address] [address] * (ABNORMAL) Lipid panel (03/08/2021 12:20 PM EDT) HDL 91 mg/dL [facility] Comment: Interpretation <40 mg/dL: Low HDL cholesterol (major risk factor for CHD) Greater than or equal to 60 mg/dL: High HDL cholesterol ( negative risk factor for CHD) HDL - cholesterol is affected by a number of factors, e.g. smoking, excerise, hormones, sex and age. CHOLESTEROL 210 0 - 240 mg/dL [facility] TRIGLYCERIDES 69 30 - 160 mg/dL [facility] LDL 105 50 - 129 mg/dL [facility] Comment: LDL levels in terms of risk for coronary heart disease: <100 mg/dL: Optimal 100-129 mg/dL: Near or above optimal 130-159 mg/dL: Borderline high 160-189 mg/dL: High >190 mg/dL: Very High CARDIAC RISK RATIO 2.3(L) 3.3 - 4.4 [facility] Blood 03/08/2021 12:2 0 PM EDT 03/08/2021 12:26 PM EDT us Derick Reyes MD LAB BLOOD BKR ORDERABLES Final R esult Performing Organization Address City/[facility]/ZIP Co de Phone Number [address] [address] from Last 3 Months or Most Recently [...] Advance Directives For more information, please contact: [phone] (9AM - 5PM Jenn/[facility], Saturday-Saturday) Documents on File Type Date Recorded Patient Title Insurance Examiner Expl anation Healthcare Proxy 10/27/2018 12:26 PM proxy * Full Code (Presumed) (Latest Code Status on File) Date Activated Date Inactivated Comments 10/23/2018 2:53 PM 10/24/2018 1:10 PM Care Teams Slitter Creaser Slotter Helper Relationship Specialty Start Date End Date Julita Auguste MD [address] [place] [address], 2[address] [place] [address] [email or web address] PCP - General Internal Medicine 12/11/22 Additional Source Comments The information contained in this document represents components of the legal health record. It is not the complete legal health record.[facility]
--- OUTSIDE RECORDS SUMMARY | 2025-09-10 12:22 | XMS_ITS | Encounter Summary ---
Author Organization [facility] Address [address] [place] [address] Phone Care Team Providers Care Mud Temperer Name Role Phone Julita Urbina MD Primary Care Provider [phone] Encounter Details Date Type Department Care Team (Late st Contact Info) Description 11/29/2023 Procedure Pass [facility] PERIOP DEPT [address] [place] [address] Social History Tobacco Use Types Packs/Day Years [...] high school, GED, job training, learning the [place] language, technical skills, or developing parenting skills)? [...] 11:40 AM EDT Office Visit [facility] [address] [place] [address] Missy Gannon MD [address] [place] [address] documented as of this encounter Visit Diagnoses Not on filedocumented in this encounter Additional Health Concerns Infection Onset Date Last Indicated Resolved Time COVID-19 07/04/2024 07/04/2024 07/25/2024 1:22 AM EDT Assessment Noted Time PHQ-2 Depression Total Score: 0 12/03/19 23 9:54 AM EST documented as of this encounter Care Teams Mud Temperer Relationship Specialty Start Date End Date Julita Urbina MD [address] [place] [address], 2nd [place] [address] PCP - General Internal Medicine 12/11/22 documented as of this encounter Additional Source Comments The information contained in this document represents components of the legal health record. It is not the complete legal health record.[facility]
--- OUTSIDE RECORDS SUMMARY | 2025-09-10 12:22 | XMS_ITS | Encounter Summary ---
Author Organization [facility] Address [address] [place] [address] Phone Care Team Providers Care Core Winder Machine Operator Name Role Phone Richard Springer MD Unavailable [phone] Scott Roe MD Unavailable [phone] Thelma Abarca MD Unavailable [phone] Johanna Fields MD Unavailable [phone] Rakan Avila MD Unavailable [phone] Lara Maldonado RNquality control auditor Provider [phone] Antonia Reyes MD Primary Care Provider [email or web address] Clotilde Phillips MUD CAR WORKER Primary Care Provider [phone] Julita Urbina MD Primary Care Provider [phone] Encounter Details Date Type Department Care Team (Late st Contact Info) Description 07/26/2020 Ancillary Orders [facility],Outside Imaging [address] [place] [address] System, Provider Not In, PhD [address] [address] Social History Tobacco Use Types Packs/Day Years [...] 11:40 AM EDT Office Visit [facility] [address] [place] [address] Missy Gannon MD [address] [place] [address] [email or web address] documented as of this encounter Results * [...] documented as of this encounter Care Teams Core Winder Machine Operator Relationship Specialty Start Date End Date Lara Maldonado RN [address] [place] [address] PCP - General Internal Medicine 05/16/20 12/21/20 Antonia Reyes MD [email or web address] PCP - General Family Medicine 12/22/20 05/03/21 Clotilde Phillips FNP [address] [place] [address] 7 [place] [address] [email or web address] PCP - General Family Medicine 05/04/21 12/10/22 Julita Urbina MD [address] [place] [address] [email or web address] PCP - General Internal Medicine 12/11/22 Richard Springer MD [address] [place] [address] [email or web address] Historical LMR Provider 08/10/17 12/21/20 Scott Roe MD [address] [place] [address] [email or web address] Historical LMR Provider 08/10/17 12/21/20 Thelma Abarca MD [address] [place] [address] Historical LMR Provider 08/10/17 1 Johanna Fields MD [address] [place] [address] Historical LMR Provider 08/10/17 1 Rakan Avila MD [address] [place] [address] Historical LMR Provider 08/10/17 1 documented as of this encounter Additional Source Comments The information contained in this document represents components of the legal health record. It is not the complete legal health record.[facility]
--- OUTSIDE RECORDS SUMMARY | 2025-09-10 12:22 | XMS_ITS | Encounter Summary ---
Author Organization [facility] Address [address] [place] [address] Phone Care Team Providers Care Media Analytics Manager Name Role Phone Richard Springer MD Unavailable [phone] Scott Roe MD Unavailable [phone] Thelma Abarca MD Unavailable [phone] Johanna Fields MD Unavailable [phone] Rakan Avila MD Unavailable [phone] Lara Maldonado RNflight mechanic Provider [phone] Antonia Reyes MD Primary Care Provider [email or web address] Clotilde Phillips CONSTRUCTION LINEMAN Primary Care Provider [phone] Julita Urbina MD Primary Care Provider [phone] Encounter Details Date Type Department Care Team (Late st Contact Info) Description 07/26/2020 Ancillary Orders [facility],Outside Imaging [address] [place] [address] System, Provider Not In, PhD [address] [address] Social History Tobacco Use Types Packs/Day Years [...] 11:40 AM EDT Office Visit [facility] [address] [place] [address] Missy Gannon MD [address] [place] [address] documented as of this encounter Results * [...] documented as of this encounter Care Teams Media Analytics Manager Relationship Specialty Start Date End Date Lara Maldonado RN [address] [place] [address] PCP - General Internal Medicine 05/16/20 12/21/20 Antonia Reyes MD [email or web address] PCP - General Family Medicine 12/22/20 05/03/21 Clotilde Phillips FNP [address] [place] [address] 7 [place] [address] [email or web address] PCP - General Family Medicine 05/04/21 12/10/22 Julita Urbina MD [address] [place] [address] [email or web address] PCP - General Internal Medicine 12/11/22 Richard Springer MD [address] [place] [address] [email or web address] Historical LMR Provider 08/10/17 12/21/20 Scott Roe MD [address] [place] [address] [email or web address] Historical LMR Provider 08/10/17 12/21/20 Thelma Abarca MD [address] [place] [address] Historical LMR Provider 08/10/17 1 Johanna Fields MD [address] [place] [address] Historical LMR Provider 08/10/17 1 Rakan Avila MD [address] [place] [address] Historical LMR Provider 08/10/17 1 documented as of this encounter Additional Source Comments The information contained in this document represents components of the legal health record. It is not the complete legal health record.[facility]
--- OUTSIDE RECORDS SUMMARY | 2025-09-10 12:22 | XMS_ITS | Encounter Summary ---
Author Organization [facility] Address [address] [place] [address] Phone Care Team Providers Care Bar And Filler Assembler Name Role Phone Richard Springer MD Unavailable [phone] Scott Roe MD Unavailable [phone] Thelma Abarca MD Unavailable [phone] Johanna Fields MD Unavailable [phone] Rakan Avila MD Unavailable [phone] Lara Maldonado RNsupervisor hospitality house Provider [phone] Antonia Reyes MD Primary Care Provider [email or web address] Clotilde Phillips LINING STAMPER Primary Care Provider [phone] Julita Urbina MD Primary Care Provider [phone] Encounter Details Date Type Department Care Team (Late st Contact Info) Description 07/26/2020 Ancillary Orders [facility],Outside Imaging [address] [place] [address] System, Provider Not In, PhD [address] [address] Social History Tobacco Use Types Packs/Day Years [...] AM EDT Office Visit [facility] [address] [place] [address] Missy Gannon MD [address] [place] [address] [email or web address] documented as of [...] documented as of this encounter Care Teams Bar And Filler Assembler Relationship Specialty Start Date End Date Lara Maldonado RN [address] [place] [address] PCP - General Internal Medicine 05/16/20 12/21/20 Antonia Reyes MD [email or web address] PCP - General Family Medicine 12/22/20 05/03/21 Clotilde Phillips FNP [address] [place] [address] 7 [place] [address] [email or web address] PCP - General Family Medicine 05/04/21 12/10/22 Julita Urbina MD [address] [place] [address] [email or web address] PCP - General Internal Medicine 12/11/22 Richard Springer MD [address] [place] [address] [email or web address] Historical LMR Provider 08/10/17 12/21/20 Scott Roe MD [address] [place] [address] [email or web address] Historical LMR Provider 08/10/17 12/21/20 Thelma Abarca MD [address] [place] [address] Historical LMR Provider 08/10/17 1 Johanna Fields MD [address] [place] [address] Historical LMR Provider 08/10/17 1 Rakan Avila MD [address] [place] [address] Historical LMR Provider 08/10/17 1 documented as of this encounter Additional Source Comments The information contained in this document represents components of the legal health record. It is not the complete legal health record.[facility]
--- OUTSIDE RECORDS SUMMARY | 2025-09-10 12:22 | XMS_ITS | Encounter Summary ---
Author Organization [facility] Address [address] [place] [address] Phone Care Team Providers Care Oil Rig Roughneck Name Role Phone Richard Springer MD Unavailable [phone] Scott Roe MD Unavailable [phone] Thelma Abarca MD Unavailable [phone] Johanna Fields MD Unavailable [phone] Rakan Avila MD Unavailable [phone] Lara Maldonado RNworkday manager Provider [phone] Antonia Reyes MD Primary Care Provider [email or web address] Clotilde Phillips Primary Care Provider [phone] Julita Urbina MD Primary Care Provider [phone] Encounter Details Date Type Department Care Team (Late st Contact Info) Description 07/13/2020 Procedure Pass [address] [place] [address] Social History Tobacco Use Types Packs/Day Years [...] 11:40 AM EDT Office Visit [facility] [address] [place] [address] Missy Gannon MD [address] [place] [address] [email or web address] documented as of [...] documented as of this encounter Care Teams Oil Rig Roughneck Relationship Specialty Start Date End Date Lara Maldonado RN [address] [place] [address] [email or web address] PCP - General Internal Medicine 05/16/20 12/21/20 Antonia Reyes MD [email or web address] PCP - General Family Medicine 12/22/20 05/03/21 Clotilde Phillips FNP [address] [place] [address], [facility] 7 [place] [address] [email or web address] PCP - General Family Medicine 05/04/21 12/10/22 Julita Urbina MD [address] [place] [address] [email or web address] PCP - General Internal Medicine 12/11/22 Richard Springer MD [address] [place] [address] [email or web address] Historical LMR Provider 08/10/17 12/21/20 Scott Roe MD [address] [address] [email or web address] Historical LMR Provider 08/10/17 12/21/20 Thelma Abarca MD [address] [place] [address] Historical LMR Provider 08/10/17 1 Johanna Fields MD [address] [place] [address] Historical LMR Provider 08/10/17 1 Rakan Avila MD 61 [place] [address] Historical LMR Provider 08/10/17 1 documented as of this encounter Additional Source Comments The information contained in this document represents components of the legal health record. It is not the complete legal health record.[facility]
--- OUTSIDE RECORDS SUMMARY | 2025-09-10 12:22 | XMS_ITS | Encounter Summary ---
Author Organization [facility] Address [address] [place] [address] Phone Care Team Providers Care Receiver Bulk System Name Role Phone Richard Springer MD Unavailable [phone] Scott Roe MD Unavailable [phone] Thelma Abarca MD Unavailable [phone] Johanna Fields MD Unavailable [phone] Rakan Avila MD Unavailable [phone] Lara Maldonado RNarea supervisor Provider [phone] Antonia Reyes MD Primary Care Provider [email or web address] Clotilde Phillips LINE PALLETIZER Primary Care Provider [phone] Julita Urbina MD Primary Care Provider [phone] Encounter Details Date Type Department Care Team (Late st Contact Info) Description 07/26/2020 Ancillary Orders [facility],Outside Imaging [address] [place] [address] System, Provider Not In, PhD [address] [address] Social History Tobacco Use Types Packs/Day Years [...] 11:40 AM EDT Office Visit [facility] [address] [place] [address] Missy Gannon MD [address] [place] [address] [email or web address] documented as of this encounter Results * [...] documented as of this encounter Care Teams Receiver Bulk System Relationship Specialty Start Date End Date Lara Maldonado RN [address] [place] [address] PCP - General Internal Medicine 05/16/20 12/21/20 Antonia Reyes MD [email or web address] PCP - General Family Medicine 12/22/20 05/03/21 Clotilde Phillips FNP [address] [place] [address] 7 [place] [address] [email or web address] PCP - General Family Medicine 05/04/21 12/10/22 Julita Urbina MD [address] [place] [address] [email or web address] PCP - General Internal Medicine 12/11/22 Richard Springer MD [address] [place] [address] [email or web address] Historical LMR Provider 08/10/17 12/21/20 Scott Roe MD [address] [place] [address] [email or web address] Historical LMR Provider 08/10/17 12/21/20 Thelma Abarca MD [address] [place] [address] Historical LMR Provider 08/10/17 1 Johanna Fields MD 61 [place] [address] Historical LMR Provider 08/10/17 1 Rakan Avila MD 61 [place] [address] Historical LMR Provider 08/10/17 1 documented as of this encounter Additional Source Comments The information contained in this document represents components of the legal health record. It is not the complete legal health record.[facility]
--- OUTSIDE RECORDS SUMMARY | 2025-09-10 12:22 | XMS_ITS | Encounter Summary ---
Author Organization [facility] Address [address] [place] [address] Phone Care Team Providers Care Director Of Regulatory Affairs Name Role Phone Julita Urbina MD Primary Care Provider [phone] Encounter Details Date Type Department Care Team (Late st Contact Info) Description 08/30/2025 Orders Only [facility] [place] [address] Unknown, Unknown, Social History Tobacco Use Types [...] AM EDT Office Visit [facility] [address] [place] [address] [place] [address] Missy Gannon MD [address] [place] [address] documented as of this encounter Procedures Procedure [...] as of this encounter Care Teams Director Of Regulatory Affairs Relationship Specialty Start Date End Date Julita Urbina MD [address] [place] [address], 2nd [place] [address] [email or web address] PCP - General Internal Medicine 12/11/22 documented as of this encounter Additional Source Comments The information contained in this document represents components of the legal health record. It is not the complete legal health record.[facility]
--- OUTSIDE RECORDS SUMMARY | 2025-09-10 12:22 | XMS_ITS | Encounter Summary ---
Author Organization [facility] Address [address] [place] [address] Phone Care Team Providers Care Dip Stand Loader Name Role Phone Julita Urbina MD Primary Care Provider [phone] Reason for Visit * Reason Onset Date Comments Referral 07/08/2025 Encounter Details Date Type Department Care Team ([facility] st Contact Info) Description 07/08/2025 Telephone [facility] [address] [place] [address] [email or web address] Referral Social History Tobacco Use Types [...] Patient called in regarding the referral to [facility]. Pt would like this faxed to [phone]. Please contact and advise. Central Support Automotive Generator Repairer (Please do not reply to this user; this inbox is not monitored.) Thank you. documented in this encounter Plan of Treatment Upcoming Encounters Date Type Department Care Team (Late st Contact Info) Description 01/19/2026 11:40 AM EDT Office Visit [facility] [address] [place] [address] Missy Gannon MD [address] [facility] 3rd [place] [address] [email or web address] documented as of this encounter Visit Diagnoses Not on filedocumented in this encounter Additional Health Concerns Assessment Noted Time PHQ-2 Depression Total Score: 0 12/03/19 9:54 AM EST documented as of this encounter Care Teams Dip Stand Loader Relationship Specialty Start Date End Date Julita Urbina MD [address] [place] [address] 2nd [place] [address] PCP - General Internal Medicine 12/11/22 documented as of this encounter Additional Source Comments The information contained in this document represents components of the legal health record. It is not the complete legal health record.[facility]
--- OUTSIDE RECORDS SUMMARY | 2025-09-10 12:22 | XMS_ITS | Encounter Summary ---
Author Organization [facility] Address [address] [place] [address] Phone Care Team Providers Care Disc Jockey Name Role Phone Julita Urbina MD Primary Care Provider [phone] Encounter Details Date Type Department Care Team (Late st Contact Info) Description 06/01/2025 Ancillary Orders [facility], X-Ray - [address] [place] [address] Mary Nuñez, ROBERTH [address] [place] [address] [email or web address] spondylosis, lumbar region (Primary Dx) Social [...] 11:40 AM EDT Office Visit [facility] [address] [place] [address] [place] [address] Missy Gannon MD [address] [place] [address] [email or web address] documented as of this encounter Results * [...] documented as of this encounter Care Teams Disc Jockey Relationship Specialty Start Date End Date Julita Urbina MD [address] [place] [address], 2nd Floor [place] [phone] [email or web address] PCP - General Internal Medicine 12/11/22 documented as of this encounter Additional Source Comments The information contained in this document represents components of the legal health record. It is not the complete legal health record.[facility]
--- OUTSIDE RECORDS SUMMARY | 2025-09-10 12:22 | XMS_ITS | Encounter Summary ---
Author Organization [facility] Address [address] [place] [address] Phone Care Team Providers Care Timber Killer Name Role Phone Julita Urbina MD Primary Care Provider [phone] Encounter Details Date Type Department Care Team (Late st Contact Info) Description 05/16/2023 Procedure Pass [address] [place] [address] Social History Tobacco Use Types Packs/Day Years [...] high school, GED, job training, learning the Brazilian language, technical skills, or developing parenting skills)? [...] 11:40 AM EDT Office Visit [facility] [address] [place] [address] Missy Gannon MD [address] [place] [address] [email or web address] documented as of this encounter Visit Diagnoses Not on filedocumented in this encounter Additional Health Concerns Infection Onset Date Last Indicated Resolved Time CoV-Risk Comment:Per Ambulatory Triage Form 11/06/2023 11/06/202311/17 1:22 AM EST COVID-19 07/04/2024 07/04/2024 07/25/2024 1:22 AM EDT Assessment Noted Time PHQ-2 Depression Total Score: 0 12/03/19 23 9:54 AM EST documented as of this encounter Care Teams Timber Killer Relationship Specialty Start Date End Date Julita Urbina MD [address] [place] [address] [email or web address] PCP - General Internal Medicine 12/11/22 documented as of this encounter Additional Source Comments The information contained in this document represents components of the legal health record. It is not the complete legal health record.[facility]
--- OUTSIDE RECORDS SUMMARY | 2025-09-10 12:22 | XMS_ITS | Encounter Summary ---
Author Organization [facility] Address [address] [place] [address] Phone Care Team Providers Care Hospice Music Therapist Name Role Phone Richard Springer MD Unavailable [phone] Scott Roe MD Unavailable [phone] Thelma Abarca MD Unavailable [phone] Johanna Fields MD Unavailable [phone] Rakan Avila MD Unavailable [phone] Richard Springre MD Primary Care Provider + Lara Maldonado RNmedical assistant Provider [phone] Antonia Reyes MD Primary Care Provider [email or web address] Clotilde Phillips Primary Care Provider [phone] Julita Urbina MD Primary Care Provider [phone] Encounter Details Date Type Department Care Team (Late st Contact Info) Description 07/23/2018 Procedure Pass [address] [address] Social History Tobacco Use Types Packs/Day Years [...] 11:40 AM EDT Office Visit [facility] [address] [place] [address] Missy Gannon MD [address] [place] [address] [email or web address] documented as of this encounter Visit Diagnoses Not on filedocumented in this encounter Additional Health Concerns Infection Onset Date Last Indicated Resolved Time CoV-Risk 11/11/2020 11/11/2020 11/21/2020 1:24 AM EST CoV-Risk 11/13/2022 11/13/2022 11/24/2022 1:22 AM EST CoV-Risk Comment:Per Ambulatory Triage Form 11/06/2023 11/06/202311/17 1:22 AM EST COVID-19 07/04/2024 07/04/2024 07/25/2024 1:22 AM EDT documented as of this encounter Care Teams Hospice Music Therapist Relationship Specialty Start Date End Date Richard Springer MD [address] [place] [address] [email or web address] PCP - General Family Medicine 07/22/18 05/15/20 Lara Maldonado RN [address] [place] [address] [email or web address] PCP - General Internal Medicine 05/16/20 12/21/20 Antonia Reyes MD [email or web address] PCP - General Family Medicine 12/22/20 05/03/21 Clotilde Phillips FNP [address] [place] [address] [address] [place] [address] [email or web address] PCP - General Family Medicine 05/04/21 12/10/22 Julita Urbina MD [address] [place] [address] [email or web address] PCP - General Internal Medicine 12/11/22 Richard Springer MD [address] [place] [address] [email or web address] Historical LMR Provider 08/10/17 12/21/20 Sctot Roe MD [address] [place] [address] [email or web address] Historical LMR Provider 08/10/17 12/21/20 Thelma Abarca MD [address] [place] [address] Historical LMR Provider 08/10/17 1 Johanna Fields MD [address] [place] [address] Historical LMR Provider 08/10/17 1 Rakan Avila MD [address] [place] [address] Historical LMR Provider 08/10/17 1 documented as of this encounter Additional Source Comments The information contained in this document represents components of the legal health record. It is not the complete legal health record.[facility]
--- OUTSIDE RECORDS SUMMARY | 2025-09-10 12:22 | XMS_ITS | Encounter Summary ---
Author Organization [facility] Address [address] [place] [address] Phone Care Team Providers Care Traffic Investigator Name Role Phone Julita Urbina MD Primary Care Provider [phone] Encounter Details Date Type Department Care Team (Late st Contact Info) Description 04/12/2023 Procedure Pass [facility], Ct Scan - [address] [address] Social History Tobacco Use Types Packs/Day Years [...] high school, GED, job training, learning the Georgian language, technical skills, or developing parenting skills)? [...] AM EDT Office Visit [facility] [address] [place] [address] Missy Gannon MD [address] [place] [address] [email or web address] documented as [...] documented as of this encounter Care Teams Traffic Investigator Relationship Specialty Start Date End Date Julita Urbina MD [address] [place] [address] 2nd [place] [address] [email or web address] PCP - General Internal Medicine 12/11/22 documented as of this encounter Additional Source Comments The information contained in this document represents components of the legal health record. It is not the complete legal health record.[facility]
--- OUTSIDE RECORDS SUMMARY | 2025-09-10 12:23 | XMS_ITS | Encounter Summary ---
Author Organization [facility] Address [address] [place] [address] Phone Care Team Providers Care Heel Seat Pounder Name Role Phone Clotilde Phillips [facility] Primary Care Provider [phone] Julita Urbina MD Primary Care Provider [phone] Encounter Details Date Type Department Care Team (Latest Contact Info) Description 10/17/2021 Transcribe Orders Virtual Department [address] [place] [address] Clotilde Phillips [facility] 234 [facility], [facility] [address] [place] [address] [email or web address] Breast screening (Primary Dx) Social History Tobacco [...] high school, GED, job training, learning the Mozambican language, technical skills, or developing parenting skills)? [...] AM EDT Office Visit [facility] [address] [place] [address] Missy Gannon MD [address] [place] [address] [email or web address] documented as of this encounter Results * [...] documented as of this encounter Care Teams Heel Seat Pounder Relationship Specialty Start Date End Date Clotilde Phillips FNP [address] [place] [address], [address] [place] [address] [email or web address] PCP - General Family Medicine 05/04/21 12/10/22 Julita Urbina MD [address] [place] [address], [address] [place] [address] [email or web address] PCP - General Internal Medicine 12/11/22 documented as of this encounter Additional Source Comments The information contained in this document represents components of the legal health record. It is not the complete legal health record.[facility]
--- OUTSIDE RECORDS SUMMARY | 2025-09-10 12:23 | XMS_ITS | Encounter Summary ---
Author Organization [facility] Address [address] [place] [address] Phone Care Team Providers Care Breaker Engineer Name Role Phone Julita Urbina MD Primary Care Provider [phone] Encounter Details Date Type Department Care Team (Late st Contact Info) Description 12/14/2022 Procedure Pass [address] [address] Social History Tobacco Use Types Packs/Day Years [...] high school, GED, job training, learning the Omani language, technical skills, or developing parenting skills)? [...] 11:40 AM EDT Office Visit [facility] [address] [place] [address] Missy Gannon MD [address] [place] [address] documented as of this encounter Visit Diagnoses Not on filedocumented in this encounter Additional Health Concerns Infection Onset Date Last Indicated Resolved Time CoV-Risk Comment:Per Ambulatory Triage Form 11/06/2023 11/06/202311/17 1:22 AM EST COVID-19 07/04/2024 07/04/2024 07/25/2024 1:22 AM EDT Assessment Noted Time PHQ-2 Depression Total Score: 0 12/03/19 9:54 AM EST documented as of this encounter Care Teams Breaker Engineer Relationship Specialty Start Date End Date Julita Urbina MD [address] [place] [address] 2[address] [place] [address] PCP - General Internal Medicine 12/11/22 documented as of this encounter Additional Source Comments The information contained in this document represents components of the legal health record. It is not the complete legal health record.[facility]
--- OUTSIDE RECORDS SUMMARY | 2025-09-10 12:23 | XMS_ITS | Encounter Summary ---
Author Organization [facility] Address [address] [place] [address] Phone Care Team Providers Care Boat Joiner Name Role Phone Julita Urbina MD Primary Care Provider [phone] Encounter Details Date Type Department Care Team (Late st Contact Info) Description 12/12/2022 Procedure Pass [address] [address] Social History Tobacco Use Types Packs/Day Years [...] high school, GED, job training, learning the Angolan language, technical skills, or developing parenting skills)? [...] 11:40 AM EDT Office Visit [facility] [address] [place] [address] Missy Gannon MD [address] [place] [address] documented as of this encounter Visit Diagnoses Not on filedocumented in this encounter Additional Health Concerns Infection Onset Date Last Indicated Resolved Time CoV-Risk Comment:Per Ambulatory Triage Form 11/06/2023 11/06/202311/17 1:22 AM EST COVID-19 07/04/2024 07/04/2024 07/25/2024 1:22 AM EDT Assessment Noted Time PHQ-2 Depression Total Score: 0 12/03/19 9:54 AM EST documented as of this encounter Care Teams Boat Joiner Relationship Specialty Start Date End Date Julita Urbina MD [address] [place] [address] 2[address] [place] [address] PCP - General Internal Medicine 12/11/22 documented as of this encounter Additional Source Comments The information contained in this document represents components of the legal health record. It is not the complete legal health record.[facility]
--- OUTSIDE RECORDS SUMMARY | 2025-09-10 12:23 | XMS_ITS | Encounter Summary ---
Author Organization [facility] Address [address] [place] [address] Phone Care Team Providers Care Rn Admissions Name Role Phone Richard Springer MD Unavailable [phone] Scott Roe MD Unavailable [phone] Thelma Abarca MD Unavailable [phone] Johanna Fields MD Unavailable [phone] Rakan Avila MD Unavailable [phone] Richard Springer MD Primary Care Provider + Lara Maldonado RNpricing strategist Provider [phone] Antonia Reyes MD Primary Care Provider [email or web address] Clotilde Phillips Primary Care Provider [phone] Julita Urbina MD Primary Care Provider [phone] Encounter Details Date Type Department Care Team (Late st Contact Info) Description 12/25/2018 Ancillary Orders Virtual Department 30 [place] [address] Grzegorz Rashid PA [address] [place] [address] [email or web address] Other spondylosis, lumbar region Social History Tobacco [...] AM EDT Office Visit [facility] [address] [place] [address] Missy Gannon MD [address] [place] [address] [email or web address] documented as of this encounter Results * XR LUMBOSACRAL SPINE 4 OR MORE VIEWS (2018 1:44 PM EST) Anatomical Region Laterality Modality L-spine Radiographic Luna ging 2018 1:57 PM EST Impressions 2018 2:01 PM EST Very minimal L4-5 and equivocal L3-4 instability during flexion. Stable multilevel degenerative disc disease. POS - [id number] Narrative 2018 2:01 PM EST COMPARISON: 07/02/2018 [...] mm anterolisthesis of the L4 relation to W5hpelmtzzn bodies during flexion and a more equivocal 2-3 mmanterolisthesis of the L3 in relation to L4 bodies. The seem to reduce inextension. No additional instability demonstrated. IMPRESSION: Very minimal L4-5 and equivocal L3-4 instability during flexion. Stablemultilevel degenerative disc disease. POS - [id number] Grzegorz LEPE IMG XR SPINE Final Resul t [...] documented as of this encounter Care Teams Rn Admissions Relationship Specialty Start Date End Date Richard Springer MD [address] [place] [address] PCP - General Family Medicine 07/22/18 05/15/20 Lara Maldonado RN 30 [place] [address] [email or web address] PCP - General Internal Medicine 05/16/20 12/21/20 Antonia Reyes MD [email or web address] PCP - General Family Medicine 12/22/20 05/03/21 Clotilde Phillips FNP [address] [place] [address], [address] [place] [address] [email or web address] PCP - General Family Medicine 05/04/21 12/10/22 Julita Urbina MD [address] [place] [address] [email or web address] PCP - General Internal Medicine 12/11/22 Richard Springer MD [address] [place] [address] [email or web address] Historical LMR Provider 08/10/17 12/21/20 Scott Roe MD [address] [place] [address] [email or web address] Historical LMR Provider 08/10/17 12/21/20 Thelma Abarca MD [address] [place] [address] Historical LMR Provider 08/10/17 1 Johanna iFelds MD [address] [place] [address] Historical LMR Provider 08/10/17 1 Rakan Avila MD [address] [place] [address] Historical LMR Provider 08/10/17 1 documented as of this encounter Additional Source Comments The information contained in this document represents components of the legal health record. It is not the complete legal health record.[facility]
--- OUTSIDE RECORDS SUMMARY | 2025-09-10 12:23 | XMS_ITS | Encounter Summary ---
Author Organization [facility] Address [address] [place] [address] Phone Care Team Providers Care Rn Transitional Name Role Phone Richard Springer MD Unavailable [phone] Scott Roe MD Unavailable [phone] Thelma Abarca MD Unavailable [phone] Johanna Fields MD Unavailable [phone] Rakan Avila MD Unavailable [phone] Richard Springer MD Primary Care Provider + Lara Maldonado RNanode worker Provider [phone] Antonia Reyes MD Primary Care Provider [email or web address] Clotilde Phillips Primary Care Provider [phone] Julita Urbina MD Primary Care Provider [phone] Encounter Details Date Type Department Care Team (Late st Contact Info) Description 10/23/2018 Procedure Pass [place] Admitting Dept - Virtual Department [address] [place] [address] Social History Tobacco Use Types Packs/Day Years [...] 11:40 AM EDT Office Visit [facility] [address] [place] [address] Missy Gannon MD [address] [place] [address] [email or web address] documented as of this encounter Visit Diagnoses [...] as of this encounter Care Teams Rn Transitional Relationship Specialty Start Date End Date Richard Springer MD [address] [place] [address] PCP - General Family Medicine 07/22/18 05/15/20 Lara Maldonado RN 30 [place] [address] PCP - General Internal Medicine 05/16/20 12/21/20 Antonia Reyes MD [email or web address] PCP - General Family Medicine 12/22/20 05/03/21 Clotilde Phillips FNP [address] [place] [address], [address] [place] [address] [email or web address] PCP - General Family Medicine 05/04/21 12/10/22 Julita Urbina MD [address] [place] [address] [email or web address] PCP - General Internal Medicine 12/11/22 Richard Springer MD [address] [place] [address] [email or web address] Historical LMR Provider 08/10/17 12/21/20 Scott Roe MD [address] [place] [address] [email or web address] Historical LMR Provider 08/10/17 12/21/20 Thelma Abarca MD [address] [place] [address] Historical LMR Provider 08/10/17 1 Johanna Fields MD [address] [place] [address] Historical LMR Provider 08/10/17 1 Rakan Avila MD [address] [place] [address] Historical LMR Provider 08/10/17 1 documented as of this encounter Additional Source Comments The information contained in this document represents components of the legal health record. It is not the complete legal health record.[facility]
--- OUTSIDE RECORDS SUMMARY | 2025-09-10 12:23 | XMS_ITS | Encounter Summary ---
Author Organization [facility] Address [address] [place] [address] Phone Care Team Providers Care Rehabilitation Program Manager Name Role Phone Clotilde Phillips Vane RIVERA Primary Care Provider [phone] Julita Urbina MD Primary Care Provider [phone] Encounter Details Date Type Department Care Team (Late st Contact Info) Description 10/17/2021 Procedure Pass [facility] - [address] [place] [address] Social History Tobacco Use Types Packs/Day Years [...] GED, job training, learning the [place] Of [place] language, technical skills, or developing parenting skills)? [...] 11:40 AM EDT Office Visit [facility] [address] [place] [address] Missy Gannon MD [address] [place] [address] documented as of this encounter Visit Diagnoses [...] documented as of this encounter Care Teams Rehabilitation Program Manager Relationship Specialty Start Date End Date Clotilde Phillips FNP [address] [place] [address], [address] [place] [address] PCP - General Family Medicine 05/04/21 12/10/22 Julita Urbina MD [address] [place] [address], 2nd [place] [address] [email or web address] PCP - General Internal Medicine 12/11/22 documented as of this encounter Additional Source Comments The information contained in this document represents components of the legal health record. It is not the complete legal health record.[facility]
== END 2025-09-10 14:01 | disposition home or self-care (01) ==
LOC: HO.HNS 11:32
PROVIDERS: PCP Internal Medicine; Referring Provider Nurse Practitioner Family; Visit Provider Physician Assistant
DX: M54.50 Low back pain, unspecified (principal); G89.29 Other chronic pain; M25.551 Pain in right hip
CPT/HCPCS: 99204

== ENCOUNTER 2025-09-10 11:32 | Outpatient (REF) | payer OTHER, SELFPAY ==
--- NOTE | ~2025-09-10 | XR_ITS ---
EXAMINATION: XR HIP, RIGHT CLINICAL INFORMATION: M25.551 - Pain in right hip COMPARISON: None available. TECHNIQUE: AP and oblique views of the right hip. FINDINGS: Sclerosis along the articular surface of the right acetabulum with asymmetric joint space narrowing. No acute cortical disruption or malalignment. Degenerative changes in the stents as well as. Spondylosis at L5-S1 and to a lesser extent L4-5. XR/XR hip RT min 2V IMPRESSION: Osteoarthritis/osteoarthrosis, mild to moderate right hip. Degenerative changes symphysis pubis. EXAMINATION: XR LUMBOSACRAL SPINE CLINICAL INFORMATION: M 54.50. Low back pain. COMPARISON: Correlated to MRI dated August 30, 2025. TECHNIQUE: Lateral views in neutral, flexion and extension position. FINDINGS: Grade 1 anterolisthesis at L4-5 which maintains during flexion and extension position. Grade 1 retrolisthesis L1 to and L2-3 which maintains flexion and extension position. Dextroconvex rotoscoliosis. Multilevel spondylosis with facet joint hypertrophy at L4-5 and L5-S1. Vascular calcifications, aorta. IMPRESSION: No instability. Please for to the MRI findings. Electronically signed by: Marck Garner MD 09/10/2025 01:14 PM HECTOR
--- NOTE | ~2025-09-10 | XR_ITS ---
EXAMINATION: XR HIP, RIGHT CLINICAL INFORMATION: M25.551 - Pain in right hip COMPARISON: None available. TECHNIQUE: AP and oblique views of the right hip. FINDINGS: Sclerosis along the articular surface of the right acetabulum with asymmetric joint space narrowing. No acute cortical disruption or malalignment. Degenerative changes in the stents as well as. Spondylosis at L5-S1 and to a lesser extent L4-5. XR/XR lumbar spine 4V min IMPRESSION: Osteoarthritis/osteoarthrosis, mild to moderate right hip. Degenerative changes symphysis pubis. EXAMINATION: XR LUMBOSACRAL SPINE CLINICAL INFORMATION: M 54.50. Low back pain. COMPARISON: Correlated to MRI dated August 30, 2025. TECHNIQUE: Lateral views in neutral, flexion and extension position. FINDINGS: Grade 1 anterolisthesis at L4-5 which maintains during flexion and extension position. Grade 1 retrolisthesis L1 to and L2-3 which maintains flexion and extension position. Dextroconvex rotoscoliosis. Multilevel spondylosis with facet joint hypertrophy at L4-5 and L5-S1. Vascular calcifications, aorta. IMPRESSION: No instability. Please for to the MRI findings. Electronically signed by: Marck Garner MD 09/10/2025 01:14 PM HECTOR
== END 2025-09-10 11:33 | disposition home or self-care (01) ==
LOC: HO.HOSX 11:32
PROVIDERS: PCP Internal Medicine; Referring Provider Nurse Practitioner Family; Visit Provider Physician Assistant
DX: M25.551 Pain in right hip (principal); M54.50 Low back pain, unspecified; G89.29 Other chronic pain
CPT/HCPCS: 72110; 73502

== ENCOUNTER → 2025-09-10 12:37 | Outpatient (BNV) | payer OTHER, SELFPAY | PROVIDERS: PCP Internal Medicine; Referring Provider Nurse Practitioner Family; Visit Provider Radiology Diagnostic Radiology | DX: M54.50 Low back pain, unspecified (principal); M16.11 Unilateral primary osteoarthritis, right hip | CPT/HCPCS: 72110; 73502 ==

== ENCOUNTER 2025-10-19 06:51 | Outpatient (REF) | payer OTHER, SELFPAY ==
--- OUTSIDE RECORDS SUMMARY | 2013-04-20 23:00 | XMS_ITS | Encounter Summary ---
Author Organization [facility] Address [address] [place] [address] Phone Care Team Providers Care Stitch Rubber Name Role Phone Unavailable Primary Care Provider Unavailabl e Encounter Details Date Type Department Care Team (Late st Contact Info) Description 04/21/2013 Hospital Encounter [facility],Outside Imaging [address] [place] [address] System, Provider Not In, [facility] [address] [address] Social History Tobacco Use Types Packs/Day Years Used Date Smoking Tobacco: Never Smokeless Tobacco: Never Alcohol Use Standard Drinks/Week Comments Not Currently 0 (1 standard drink = 0.6 oz pur e alcohol) Child or Family Care Answer Date Record ed Do you have problems with on e of the following making it difficult for you to work, study, or receive health care? No 12/03/2022 Education Answer Date Recorded Are you interested in more education? Not on flavio e 12/03/2024 Are you concerned about learning? Not on file 12/03/2024 No 12/03/2024 No 12/03/2024 Food Answer Date Recorded Within the past 6 months we worried whether our food would run out before we got money to buy more. Never True 12/03/2022 Within the past 6 months the food we bought just didn't last and we didn't have enough money to get more. Never True Residential Stability Answer Date Recor ded What is your housing situation today? I have wilfrido sing 12/03/2022 How many times have you move d in the past 12 months? Zero (I did not move) 12/03/2022 Paying for Meds Answer Date Recorded Do you have trouble paying for medicines? No 12/03/2022 Paying Utility Bills Answer Date Record ed Do you have trouble paying your heating or elect ricity bill? No 12/03/2022 Transportation Answer Date Recorded Has the lack of transportati on kept you from medical appointments or from getting medications? No 12/03/2022 Unemployment Answer Date Recorded Are you currently unemployed or working on a part-time or temporary basis, and looking for work? No 12/03/2022 Digital Access Answer Date Recorded No 03/18/2023 No 03/18/2023 Reliable internet access at home? Not on file 03/18/2023 Device with a working camera? Not on file Intimate Partner Violence Answer Date R ecorded Are you denied basic needs s uch as food, clothing, or medical care? No 07/04/2024 In the past 12 months have y ou been in a relationship with a person who hurts, threatens, or tries to control you? No 07/04/2024 Are you denied basic needs s uch as food, clothing, or medical care? No 07/04/2024 In the past 12 months have y ou been in a relationship with a person who hurts, threatens, or tries to control you? No 07/04/2024 Comments No Sex and Gender Information Value Date Recorded Sex Assigned at Female 06/28/2021 10:42 AM EDT Legal Sex Female 10:03 PM EDT Gender Identity Female 06/28/2021 10:42 AM EDT Sexual Orientation Straight 06/28/2021 10 :41 AM EDT documented as of this encounter Plan of Treatment Upcoming Encounters Date Type Department Care Team (Late st Contact Info) Description 01/19/2026 11:40 AM EDT Office Visit [facility] [address] [place] [address] [place] [address] Missy Gannon MD [address] [address] documented as of this encounter Procedures Procedure Name Priority Date/Time Associated Diagnosis Comments BI MAMMOGRAM OUTSIDE (NO INTERPRETATION) Routine 04/21/2013 12:00 AM EDT documented in this encounter Results * Mammogram Outside (No Interpretation) (04/21/2013 12:00 AM EDT) Narrative SYSTEMGENERATED, DOCUMENTATION - 07/26/2020 10:28 AM EDT This study is for PACS storage only and not for interpretation. us Provider Not In System PhD IMG OUTSIDE IMAGING W /OUT INTERPRETATION Final Result documented in this encounter Visit Diagnoses Not on filedocumented in this encounter Additional Health Concerns Infection Onset Date Last Indicated Resolved Time CoV-Risk 11/11/2020 11/11/2020 11/21/2020 1:24 AM EST CoV-Risk 11/13/2022 11/13/2022 11/24/2022 1:22 AM EST CoV-Risk Comment:Per Ambulatory Triage Form 11/06/2023 11/06/202311/17 1:22 AM EST COVID-19 07/04/2024 07/04/2024 07/25/2024 1:22 AM EDT documented as of this encounter Additional Source Comments The information contained in this document represents components of the legal health record. It is not the complete legal health record.[facility]
--- OUTSIDE RECORDS SUMMARY | 2013-07-16 23:00 | XMS_ITS | Encounter Summary ---
Author Organization [facility] Address [address] [place] [address] Phone Care Team Providers Care Pictures Editor Name Role Phone Unavailable Primary Care Provider Unavailabl e Encounter Details Date Type Department Care Team (Late st Contact Info) Description 07/17/2013 Hospital Encounter [facility],Outside Imaging 30 [place] [address] System, Provider Not In, [facility] [address] [address] Social History Tobacco Use Types Packs/Day Years [...] Description 01/19/2026 11:40 AM EDT Office Visit [facility] [address] [place] [address] [place] [address] Missy Gannon MD [address] [address] documented as of this encounter Procedures Procedure [...] It is not the complete legal health record.[facility]
--- OUTSIDE RECORDS SUMMARY | 2013-07-16 23:05 | XMS_ITS | Encounter Summary ---
Author Organization [facility] Address [address] [place] [address] Phone Care Team Providers Care Behavioral Health Professional Name Role Phone Unavailable Primary Care Provider Unavailabl e Encounter Details Date Type Department Care Team (Late st Contact Info) Description 07/17/2013 12:05 AM EDT Hospital Encounter [facility],Outside Imaging [address] [place] [address] System, Provider [place] In, [place] [address] Social History Tobacco Use Types Packs/Day Years [...] Description 01/19/2026 11:40 AM EDT Office Visit [facility] [address] [place] [address] [place] [address] Missy Gannon MD [address] [address] documented as of this encounter Procedures Procedure [...] It is not the complete legal health record.[facility]
--- NOTE | ~2025-10-19 | FL_ITS ---
EXAMINATION: FL GUIDANCE ONLY HISTORY: M53.3 - Sacrococcygeal disorders, not elsewhere classified COMPARISON: None available. TECHNIQUE: Fluoroscopy time: 12 seconds. Cumulative Dose: 2.60 mGy. DAP: 282.10 mGycm2 Images: 2. FINDINGS: Fluoroscopic spot films of the right hemipelvis demonstrate a needle and contrast material in the region of the sacroiliac joint. FL/FL guidance in treatment room IMPRESSION: Fluoroscopy during procedure. Please see procedure report for additional information. Electronically signed by: Mayur Anton MD 10/19/2025 02:16 PM EST
--- OUTSIDE RECORDS SUMMARY | 2025-10-19 08:34 | XMS_ITS | Encounter Summary ---
Author Organization [facility] Address [address] [place] [address] Phone Care Team Providers Care Auto Vinyl Top Installer Name Role Phone Richard Springer MD Unavailable [phone] Scott Roe MD Unavailable [phone] Thelma Abarca MD Unavailable [phone] Johanna Fields MD Unavailable [phone] Rakan Avila MD Unavailable [phone] Lara Maldonado RNswedish masseuse Provider [phone] Antonia Reyes MD Primary Care Provider [email or web address] Clotilde PhillipsP Primary Care Provider [phone] Julita Urbina MD Primary Care Provider [phone] Encounter Details Date Type Department Care Team (Late st Contact Info) Description 07/13/2020 Procedure Pass [facility] - [address] [place] [address] Social History Tobacco Use Types Packs/Day Years [...] Description 01/19/2026 11:40 AM EDT Office Visit [facility] End[facility]ology Clinic [address] [place] [address] Missy Gannon MD [address] [place] [address] documented as of this encounter Visit Diagnoses Not on filedocumented in this encounter Additional Health Concerns Infection Onset Date Last Indicated Resolved Time CoV-Risk 11/11/2020 11/11/2020 11/21/2020 1:2 4 AM EST CoV-Risk 11/13/2022 11/13/2022 11/24/2022 1:22 AM EST CoV-Risk Comment:Per Ambulatory Triage Form 11/06/2023 11/06/202311/17 1:22 AM EST COVID-19 07/04/2024 07/04/2024 07/25/2024 1:22 AM EDT Assessment Noted Time PHQ-2 Depression Total Score: 1 08/21/20 18 2:32 PM EDT documented as of this encounter Care Teams Auto Vinyl Top Installer Relationship Specialty Start Date End Date Lara Maldonado RN [address] [place] [address] PCP - General Internal Medicine 05/16/20 12/21/20 Antonia Reyes MD [email or web address] PCP - General Family Medicine 12/22/20 05/03/21 Clotilde Phillips FNP [address] [place] [address], [address] [place] [address] PCP - General Family Medicine 05/04/21 12/10/22 Julita Urbina MD [address] [place] [address] [email or web address] PCP - General Internal Medicine 12/11/22 Richard Springer MD [address] [place] [address] [email or web address] Historical LMR Provider 08/10/17 12/21/20 Scott Roe MD [address] [address] [email or web address] Historical LMR Provider 08/10/17 12/21/20 Thelma Abarca MD [address] [place] [address] Historical LMR Provider 08/10/17 1 Johanna Fields MD [address] [place] [address] Historical LMR Provider 08/10/17 1 Rakan Avila MD [address] [place] [address] Historical LMR Provider 08/10/17 1 documented as of this encounter Additional Source Comments The information contained in this document represents components of the legal health record. It is not the complete legal health record.[facility]
--- OUTSIDE RECORDS SUMMARY | 2025-10-19 08:34 | XMS_ITS | Patient Health Record ---
Author Organization [facility] Address [address] [place] [address] Care Team Providers Care Briquetting Machine Operator Name Role Phone Mayur Romero Primary Care Provider Sobeida Abbasi Unavailable [phone] Allergies Allergen (clinical drug ingredient) Drug/Non Drug [...] Treatment Pending Test Test Name Order Date [id number], 1-14 01/24/2016 Insurance Providers Payer Name Payer Address Payer Phone Subscriber Number Group Number Insured Name Patient Relationship to Insured Coverage Start Date Coverage End Date [employer] [place] Medicare Advantage [facility] [address] [place] [address] [phone] [id number] Francisco Wakefield Self - patient is the insured Medical (General) History Medical History History ICD Code rheumatoid arthritis Raynauds syndrome Thyroid disorder Surgical History Surgery Date(Month/Year) wrist surgery
--- OUTSIDE RECORDS SUMMARY | 2025-10-19 08:34 | XMS_ITS | Encounter Summary ---
Author Organization [facility] Address [address] [place] [address] Phone Care Team Providers Care Oven Unloader Name Role Phone Julita Urbina MD Primary Care Provider [phone] Encounter Details Date Type Department Care Team (Late st Contact Info) Description 05/16/2023 Procedure Pass [address] [place] [address] Social History Tobacco Use Types Packs/Day Years [...] Description 01/19/2026 11:40 AM EDT Office Visit [facility] End[facility]inology Clinic [address] [place] [address] Missy Gannon MD [address] [place] [address] [email or web address] documented as of this encounter Visit Diagnoses Not on filedocumented in this encounter Additional Health Concerns Infection Onset Date Last Indicated Resolved Time CoV-Risk Comment:Per Ambulatory Triage Form 11/06/2023 11/06/202311/17 1:22 AM EST COVID-19 07/04/2024 07/04/2024 07/25/2024 1:22 AM EDT Assessment Noted Time PHQ-2 Depression Total Score: 0 12/03/19 23 9:54 AM EST documented as of this encounter Care Teams Oven Unloader Relationship Specialty Start Date End Date Julita Urbina MD [address] [place] [address], [address] [place] [address] [email or web address] PCP - General Internal Medicine 12/11/22 documented as of this encounter Additional Source Comments The information contained in this document represents components of the legal health record. It is not the complete legal health record.[facility]
--- OUTSIDE RECORDS SUMMARY | 2025-10-19 08:34 | XMS_ITS | Encounter Summary ---
Author Organization [facility] Address [address] [place] [address] Phone Care Team Providers Care Motion And Time Study Teacher Name Role Phone Richard Springer MD Unavailable [phone] Scott Roe MD Unavailable [phone] Thelma bAarca MD Unavailable [phone] Johanna Fields MD Unavailable [phone] Rakan Avila MD Unavailable [phone] Lara Maldonado RNdam operator Provider [phone] Antonia Reyes MD Primary Care Provider [email or web address] Clotilde Phillips SCREW MACHINE OPERATOR SINGLE SPINDLE Primary Care Provider [phone] Julita Urbina MD Primary Care Provider [phone] Encounter Details Date Type Department Care Team (Late st Contact Info) Description 07/26/2020 Ancillary Orders [facility],Outside Imaging [address] [place] [address] System, Provider Not In, PhD [address] [address] Social History Tobacco Use Types Packs/Day Years [...] Description 01/19/2026 11:40 AM EDT Office Visit [facility] Endocrinology [address] [address] Missy Gannon MD [address] [place] [address] documented as of this encounter Results * [...] documented as of this encounter Care Teams Motion And Time Study Teacher Relationship Specialty Start Date End Date Lara Maldonado RN [address] [place] [address] PCP - General Internal Medicine 05/16/20 12/21/20 Antonia Reyes MD [email or web address] PCP - General Family Medicine 12/22/20 05/03/21 Clotilde Phillips FNP [address] [place] [address] [address] [place] [address] [email or web address] PCP - General Family Medicine 05/04/21 12/10/22 Julita Urbina MD [address] [place] [address] [email or web address] PCP - General Internal Medicine 12/11/22 Richard Springer MD [address] [place] [address] [email or web address] Historical LMR Provider 08/10/17 12/21/20 Scott Roe MD [address] [address] [email or web address] Historical LMR Provider 08/10/17 12/21/20 Thelma Abarca MD [address] [place] [address] Historical LMR Provider 08/10/17 1 Johanna Fields MD [address] [place] [address] Historical LMR Provider 08/10/17 1 Rakan Avila MD [address] [place] [address] Historical LMR Provider 08/10/17 1 documented as of this encounter Additional Source Comments The information contained in this document represents components of the legal health record. It is not the complete legal health record.[facility]
--- OUTSIDE RECORDS SUMMARY | 2025-10-19 08:34 | XMS_ITS | Clinical Summary ---
Author Organization [facility] Address [address] [place] [address] Phone Care Team Providers Care Dumping Machine Operator Name Role Phone Julita Auguste MD Primary Care Provider Allergies No known active allergies Medications minoxidiL (LONITEN) 2.5 MG tablet Take 1.25 mg by mouth daily. TAKES 1/4 tab for hair loss Active LORazepam (ATIVAN) 0.5 MG tabletIndication s:Anxiety [...] may request partial fill 30 capsule Active levothyroxine (SYNTHROID, LEVOTHROID) 150 MCG tabletIndication s:Medication refill TAKE 1 TABLET BY MOUTH IN THE MORNING 90 tablet 025 Active levothyroxine (SYNTHROID, LEVOTHROID) 150 MCG tabletIndication s:Medication refill Take 1 tablet (150 mcg total) by mouth every morning. 90 tablet 3 024 2024 Discontinued lisdexamfetamine (VYVANSE) 70 MG capsuleIndicatio ns:Attention deficit hyperactivity disorder (ADHD), combined type Take 1 capsule (70 mg total) by mouth every morning. Pt. may request partial fill 30 capsule 025 2024 Discontinued(R eorder) lisdexamfetamine (VYVANSE) 70 MG capsuleIndicatio ns:Attention deficit hyperactivity disorder (ADHD), combined type Take 1 capsule (70 mg total) by mouth every morning. Pt. may request partial fill 30 capsule 025 2024 Discontinued(R eorder) Active Problems Problem Noted Date Diagnosed Date [...] symptoms and benefit of physical therapy and/or child care specialist. She did some acupuncture which [...] causes some stomach upset. - Followed by [facility] endocrinology, last visit note reviewed. They [...] reverse shoulder replacement is scheduled 05/24/22 with [facility]. 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 Merino in [facility] Assessment & Plan (10/31/2018 11:04 AM EST): Moderately severe and symptomatic bunion left right great toe dislikes most of the doctors as visit coming up with Dr. Merino up at [place] who she likes. Now she is wearing wide toe box shoes Attention deficit hyperactivity disorder (ADHD) 08/24/2018 Assessment & Plan (05/14/2024 5:02 PM EDT): Elida. Assessment & Plan (06/19/2022 5:37 PM EDT): Elida, colin the kathy. Assessment & Plan (03/25/2022 9:08 AM EDT): Stable, continue vyvanse. Assessment & Plan (12/19/2021 6:56 [...] previously been seen at [facility]. She has had a tube placed but [...] with her plan, she requests referral to [facility] - reviewed I would place referral [...] wo benefit] or sports medicine Dr Guerrero [facility] Piriformis syndrome of left side [...] Encounters Date Type Department Care Team Description 10/12/[address] [place] [address] Julita Auguste MD Referral 10/12/2025 Refill [facility] [address] [place] [address] Julita Auguste MD Medication Refill 09/27/2025 Telephone [facility] [address] [place] [address] Julita Auguste MD Referral (: [facility]) 09/21/[address] [place] [address] Julita Auguste MD Medication Refill; Vyvanse 09/10/2025 Orders Only [facility] [address] [place] [address] Unknown, Unknown, 09/01/[address] [place] [address] Julita Auguste MD uti concern 08/30/2025 Orders Only [facility] [address] [place] [address] Unknown, Unknown, 07/26/[address] [place] [address] Julita Auguste MD Medication Refill 07/21/[address] [place] [address] Julita Auguste MD Fax (Pain management referral) 07/20/[address] [place], [place] [address] Julita Auguste MD Medication Refill; Vyvanse from Last 3 Months Immunizations Immunization Administration Dates Next Due COVID-19 (Pre-08/12) Simran Vaccine, [id number], PF 12/29/2020 COVID-19 (Pre-08/12) Moderna Vaccine, mRNA, PF 07/11/2022 COVID-19, Unspecified Formulation 08/12/2021,08/2021 [id number] FORMULATION 11/07/2009 INFLUENZA, SPLIT VIRUS, TRIV ALENT W/ PRESERVATIVE IM 07/22/2012,09/07/2011,07/10/2010 Influenza High-Dose Quadriva lent Preservative Free IM 10/22/2023,07/28/2020 Influenza High-Dose Trivalen t Preservative Free IM 10/07/2025,09/21/2024,07/23/2018,09/17,12/06/2016,08/16/2015 Influenza Quadrivalent Adjuv anted Preservative Free IM [...] Description 01/19/2026 11:40 AM EDT Office Visit [facility] Endocrinology Clinic [address] [place] [address] Missy Gannon MD [address] [place] [address] Health Maintenance Due Date Last Done Comments COLOGUARD 1994 FOBT 1994 SIGMOIDOSCOPY 1994 VIRTUAL COLONOSCOPY 1994 FIT TEST 05/09/2022 05/09/2021 DEPRESSION SCREENING 12/03/2023 12/03/2022 LIPID PANEL 03/08/2026 03/08/2021, 07/25/2020 COVID-19 VACCINE ( season) 2026 10/07/2025, 02/24/2024, 07/11/2022, Additional history exists TSH LEVEL 05/19/2026 05/19/2025, 09/20, 08/10/2022, Additional history exists Adult Td,Tdap Booster 06/15/2031 06/15/2021 , 03/03/2011, 08/05/2001 COLONOSCOPY 02/19/2035 02/19/2025 COLORECTAL CANCER SCREENING 02/19/2035 ZOSTER VACCINES Completed 06/13/2020, 05/2020, 07/10/2010 PNEUMOCOCCAL VACCINES (50+ years) Completed 07/28/2020, 08/21/2018, 08/16/2015 HEPATITIS C SCREENING Completed 08/18/2021 RSV VACCINE Completed 10/10/2023 OSTEOPOROSIS SCREENING INITIAL (ONE-TIME) Completed 10/16/2024, 07/19/2022 SMOKING STATUS SCREENING (Once After 26 Yrs) Completed 06/30/2025 INFLUENZA VACCINE Completed 10/07/2025, , 10/22/2023, Additional history exists HEPATITIS A VACCINES Aged Out No long [...] this topic Medical Devices Implanted Type Area Cow Puncher Device Identifier Shelf Expiration Date Model / Serial / Lot Wrist Description:Titanium left wr ist Right Shoulder Description:Right shoulder r eplacement Procedures Procedure Name Priority Date/Time Associated Diagnosis Comments OUTSIDE IMAGING Routine 09/10/2025 4:23 PM EST OUTSIDE IMAGING Routine 09/10/2025 4:20 PM EST OUTSIDE IMAGING Routine 08/30/2025 3:37 PM EST [...] Maintenance Results * Outside Imaging Report Only (09/10/2025 4:23 PM EST) us Unknown Unknown MD IMG XR CHEST Edited Result - Final * Outside Imaging Report Only (09/10/2025 4:20 PM EST) us Unknown Unknown MD IMG XR CHEST Edited Result - Final * Outside Imaging Report Only (08/30/2025 3:37 PM EST) us Unknown Unknown MD IMG XR CHEST Edited Result - Final * (ABNORMAL) TSH with reflex (05/19/2025 3:36 PM EDT) TSH 0.13(L) 0.27 - 4.20 uIU/mL [facility] Blood 05/19/2025 3:36 PM EDT 05/19/2025 3:43 PM EDT Petey Waters DO LAB BLOOD BKR ORDERABLES Final R esult [facility] [address] [place], [place] [id number] * COLONOSCOPY FOR RESULT ENTRY ONLY (02/19/2025 5:27 PM EDT) Historical Provider HEALTH MAINTENANCE Edited Result - Final * BD DXA AXIAL (SPINE) WITH HIP (10/16/2024 2:39 PM EST) Anatomical Region Laterality Modality Bone Density Bone Density 10/16/2024 2:37 PM EST Impressions 10/16/2024 2:43 PM EST Interpretation: Osteoporosis. Narrative 10/16/2024 2:43 PM EST Referred By: JULITA AUGUSTE Indications: Osteoporosis and Postmenopausal Scanner: Tweetflow A with serial# of [id number] located at [facility] Bone Density Scan (DXA) 10/16/24 Details [...] -2.5), or Osteoporosis (T-score <= -2.5). At [facility], T-scores are compared to peak bone density [...] JULITA AUGUSTE Indications: Osteoporosis and Postmenopausal Scanner: Tweetflow A with serial# of [id number] located at [facility] Bone Density Scan (DXA) 10/16/24 Details [...] -2.5), or Osteoporosis (T-score <= -2.5). At [facility], T-scores are compared to peak bone density [...] HCV NON-REACTIV E NON-REACTI VE [facility] Blood 08/18/2021 12:1 4 PM EDT 08/18/2021 4:32 PM EDT Clotilde Fergusonjuan c [facility] LAB BLOOD BKR ORDERABLES Destini l Result Performing Organization Address City/[facility] [address]/ZIP Co de Phone Number [address] [address] * Fecal immunochemical test x1 (FIT) (05/09/2021 6:43 PM EDT) Immuno Fecal Occult Negative Negative [facility] Stool (Stool) 05/09/2021 6:4 3 PM EDT 05/09/2021 6:44 PM EDT Clotilde Vane Alan [facility] LAB BODY FLUIDS AND STOOL ORD ERABLES Final Result Performing Organization Address [facility] [address]/ZIP Co de Phone Number [address] [address] * (ABNORMAL) Lipid panel (03/08/2021 12:20 PM EDT) HDL 91 mg/dL [facility] Comment: Interpretation <40 mg/dL: Low HDL cholesterol (major risk factor for CHD) Greater than or equal to 60 mg/dL: High HDL cholesterol ( negative risk factor for CHD) HDL - cholesterol is affected by a number of factors, e.g. smoking, excerise, hormones, sex and age. CHOLESTEROL 210 0 - 240 mg/dL [facility] TRIGLYCERIDES 69 30 - 160 mg/dL [facility] LDL 105 50 - 129 mg/dL [facility] Comment: LDL levels in terms of risk for coronary heart disease: <100 mg/dL: Optimal 100-129 mg/dL: Near or above optimal 130-159 mg/dL: Borderline high 160-189 mg/dL: High >190 mg/dL: Very High CARDIAC RISK RATIO 2.3(L) 3.3 - 4.4 C [facility] Blood 03/08/2021 12:2 0 PM EDT 03/08/2021 12:26 PM EDT us Derick Reyes MD LAB BLOOD BKR ORDERABLES Final R esult [address] [address] from Last 3 Months or Most Recently [...] Advance Directives For more information, please contact: [phone] (9AM - 5PM Jenn/[facility], Saturday-Saturday) Documents on File Type Date Recorded Patient Wafer Fab Operator Expl anation Healthcare Proxy 10/27/2018 12:26 PM proxy * Full Code (Presumed) (Latest Code Status on File) Date Activated Date Inactivated Comments 10/23/2018 2:53 PM 10/24/2018 1:10 PM Care Teams Dumping Machine Operator Relationship Specialty Start Date End Date Julita Auguste MD [address] [place] [address], [address] [place] [address] [email or web address] PCP - General Internal Medicine 12/11/22 Additional Source Comments The information contained in this document represents components of the legal health record. It is not the complete legal health record.[facility]
--- OUTSIDE RECORDS SUMMARY | 2025-10-19 08:34 | XMS_ITS | Encounter Summary ---
Author Organization [facility] Address [address] [place] [address] Phone Care Team Providers Care Auto Salvage Worker Name Role Phone Julita Urbina MD Primary Care Provider Encounter Details Date Type Department Care Team (Late st Contact Info) Description 06/01/2025 Ancillary Orders [facility], X-Ray - [address] [place] [address] Mary Nuñez, ROBERTH [address] [place] [address] [email or web address] Other spondylosis, lumbar region (Primary Dx) Social [...] Description 01/19/2026 11:40 AM EDT Office Visit [facility] [address] [place] [address] Missy Gannon MD [address] [place] [address] documented as of this encounter Results * [...] changes. No acute osseous abnormality. Mary LEPE IMJackie XR SPINE Final Result documented in this encounter Visit Diagnoses Diagnosis Other spondylosis, lumbar region- Primary Other spondylosis, lumbar region documented in this encounter Additional Health Concerns Assessment Noted Time PHQ-2 Depression Total Score: 0 12/03/19 9:54 AM EST documented as of this encounter Care Teams Auto Salvage Worker Relationship Specialty Start Date End Date Julita Urbina MD [address] [place] [address], 2nd Floor [place] [id number] [email or web address] PCP - General Internal Medicine 12/11/22 documented as of this encounter Additional Source Comments The information contained in this document represents components of the legal health record. It is not the complete legal health record.[facility]
--- OUTSIDE RECORDS SUMMARY | 2025-10-19 08:34 | XMS_ITS | Clinical Summary ---
Author Organization [facility] Address [address] [place] [address] Care Team Providers Care School Health Aide Name Role Phone Unavailable Primary Care Provider Unavailabl e Social History Tobacco Use Types Packs/Day Years Used Date Smoking Tobacco: Never Assessed Comments Unknown Sex and Gender Information Value Date Recorded Sex Assigned at Not on file Legal Sex Female 11:19 PM EST Gender Identity Not on file Sexual Orientation Not on file Last Filed Vital Signs Vital Sign Reading Time Taken Comments Blood Pressure - - Pulse - - Temperature - - Respiratory Rate - - Oxygen Saturation - - Inhaled Oxygen Concentration - - Weight 62 kg (136 lb 11 oz) 05/03/2022 8:37 AM E DT Height 170.2 cm (5' 7 ) 05/03/2022 8:37 AM EDT Body Mass Index 21.41 05/03/2022 8:37 AM EDT Plan of Treatment Health Maintenance Due Date Last Done Comments Blood Pressure 1949 Depression Screening 1961 Hepatitis C Screening 12/27/1967 Breast Cancer Screening 1989 CT Colonography 1994 Colonoscopy 1994 FIT 1994 Multitarget Stool DNA (Cologuard) 1994 Sigmoidoscopy 1994 Colorectal Cancer Screening 05/09/2022 FOBT 05/09/2022 05/09/2021 COVID-19 Vaccine ( season) 2025 07/11/2022, 08/12/2021, 12/29/2020, Additional history exists Influenza Vaccine (#1) 2025 , 10/22/2023, 07/11/2022, Additional history exists Lipid Panel 03/08/2026 03/08/2021, 03/08/2021 DTaP,Tdap,and Td Vaccines (4 - Td or Tdap) 06/15/2031 06/15/2021, 03/03/2011, 08/05/2001 Zoster Vaccine Completed 06/13/2020, 05/2020, 07/10/2010 Pneumococcal Vaccine: 50+ Years Completed 07/28/2020, 08/21/2018, 08/16/2015 Osteoporosis Screening Completed 10/16/2024 Meningococcal B Vaccines Aged Out No longer eligible based on patient's age to complete this topic Meningococcal Vaccines Aged Out No lo nger eligible based on patient's age to complete this topic Advance Directives Documents on File Type Date Recorded Patient Plant Security Guard Expl anation Health Care Proxy 05/03/2022 7:15 AM David Care Proxy - Internal
--- OUTSIDE RECORDS SUMMARY | 2025-10-19 08:34 | XMS_ITS | Encounter Summary ---
Author Organization [facility] Address [address] [place] [address] Phone Care Team Providers Care Infertility Medical Assistant Name Role Phone Richard Springer MD Unavailable [phone] Scott Roe MD Unavailable +[phone] Thelma Abarca MD Unavailable [phone] Johanna Fields MD Unavailable [phone] Rakan Avila MD Unavailable [phone] Richard Springer MD Primary Care Provider + Lara Maldonado RNtool checker Provider [phone] Antonia Reyes MD Primary Care Provider [email or web address] Clotilde Phillips Primary Care Provider [phone] Julita Urbina MD Primary Care Provider [phone] Encounter Details Date Type Department Care Team (Late st Contact Info) Description 07/23/2018 Procedure Pass [facility], [address] [address] Social History Tobacco Use Types Packs/Day Years [...] Description 01/19/2026 11:40 AM EDT Office Visit [facility]ology [facility] [address] [place] [address] Missy Gannon MD [address] [place] [address] [email or web address] documented as of this encounter Visit Diagnoses Not on filedocumented in this encounter Additional Health Concerns Infection Onset Date Last Indicated Resolved Time CoV-Risk 11/11/2020 11/11/2020 11/21/2020 1:24 AM EST CoV-Risk 11/13/2022 11/13/2022 11/24/2022 1:22 AM EST CoV-Risk Comment:Per Ambulatory Triage Form 11/06/2023 11/06/202311/17 1:22 AM EST COVID-19 07/04/2024 07/04/2024 07/25/2024 1:22 AM EDT documented as of this encounter Care Teams Infertility Medical Assistant Relationship Specialty Start Date End Date Richard Springer MD [address] [place] [address] [email or web address] PCP - General Family Medicine 07/22/18 05/15/20 Lara Maldonado RN [address] [place] [address] [email or web address] PCP - General Internal Medicine 05/16/20 12/21/20 Antonia Reyes MD [email or web address] PCP - General Family Medicine 12/22/20 05/03/21 Clotilde Phillips FNP [address] [place] [address] [address] [place] [address] [email or web address] PCP - General Family Medicine 05/04/21 12/10/22 Julita Urbina MD [address] [place] [address] [email or web address] PCP - General Internal Medicine 12/11/22 Richard Springer MD [address] [place] [address] [email or web address] Historical LMR Provider 08/10/17 12/21/20 Scott Roe MD [address] [address] [email or web address] Historical LMR Provider 08/10/17 12/21/20 Thelma Abarca MD [address] [place] [address] Historical LMR Provider 08/10/17 1 Johanna Fields MD [address] [place] [address] Historical LMR Provider 08/10/17 1 Rakan Avila MD [address] [place] [address] Historical LMR Provider 08/10/17 1 documented as of this encounter Additional Source Comments The information contained in this document represents components of the legal health record. It is not the complete legal health record.[facility]
--- OUTSIDE RECORDS SUMMARY | 2025-10-19 08:34 | XMS_ITS | Encounter Summary ---
Author Organization [facility] Address [address] [place] [address] Phone Care Team Providers Care Vice President Of Contracts Name Role Phone Julita Urbina MD Primary Care Provider [phone] Encounter Details Date Type Department Care Team (Late st Contact Info) Description 04/12/2023 Procedure Pass [facility], Ct Scan - [address] [address] Social History Tobacco Use Types Packs/Day Years [...] high school, GED, job training, learning the Belizean language, technical skills, or developing parenting skills)? [...] Description 01/19/2026 11:40 AM EDT Office Visit [facility] Endocrinology Clinic [address] [place] [address] Missy Gannon MD [address] [place] [address] [email or web address] documented as of this encounter Visit Diagnoses Not on filedocumented in this encounter Additional Health Concerns Infection Onset Date Last Indicated Resolved Time CoV-Risk Comment:Per Ambulatory Triage Form 11/06/2023 11/06/202311/17 1:22 AM EST COVID-19 07/04/2024 07/04/2024 07/25/2024 1:2 2 AM EDT Assessment Noted Time PHQ-2 Depression Total Score: 0 12/03/19 23 9:54 AM EST documented as of this encounter Care Teams Vice President Of Contracts Relationship Specialty Start Date End Date Julita Urbina MD [address] [place] [address] 2[address] [place] [address] [email or web address] PCP - General Internal Medicine 12/11/22 documented as of this encounter Additional Source Comments The information contained in this document represents components of the legal health record. It is not the complete legal health record.[facility]
--- OUTSIDE RECORDS SUMMARY | 2025-10-19 08:34 | XMS_ITS | Encounter Summary ---
Author Organization [facility] Address [address] [place] [address] Phone Care Team Providers Care Grinder Set Up Operator Jig Name Role Phone Richard Springer MD Unavailable [phone] Scott Roe MD Unavailable [phone] Thelma Abarca MD Unavailable [phone] Johanna Fields MD Unavailable [phone] Rakan Avila MD Unavailable [phone] Lara Maldonado RNassociate professor of anthropology Provider [phone] Antonia Reyes MD Primary Care Provider [email or web address] Clotilde Phillips ORGAN INSTALLER Primary Care Provider [phone] Julita Urbina MD Primary Care Provider [phone] Encounter Details Date Type Department Care Team (Late st Contact Info) Description 07/26/2020 Ancillary Orders [facility],Outside Imaging [address] [place] [address] System, Provider Not In, PhD [address] [address] Social History Tobacco Use Types Packs/Day Years [...] 01/19/2026 11:40 AM EDT Office Visit [facility] Endocrinology [address] [address] Missy Gannon MD [address] [place] [address] documented as of this encounter Results * [...] documented as of this encounter Care Teams Grinder Set Up Operator Jig Relationship Specialty Start Date End Date Lara Maldonado RN [address] [place] [address] PCP - General Internal Medicine 05/16/20 12/21/20 Antonia Reyes MD [email or web address] PCP - General Family Medicine 12/22/20 05/03/21 Clotilde Phillips FNP [address] [place] [address] 7 [place] [address] [email or web address] PCP - General Family Medicine 05/04/21 12/10/22 Julita Urbina MD [address] [place] [address] [email or web address] PCP - General Internal Medicine 12/11/22 Richard Springer MD [address] [place] [address] [email or web address] Historical LMR Provider 08/10/17 12/21/20 Scott Roe MD [address] [address] [email or web address] Historical LMR Provider 08/10/17 12/21/20 Thelma Abarca MD 30 [place] [address] Historical LMR Provider 08/10/17 1 Johanna Fields MD 61 [place] [address] Historical LMR Provider 08/10/17 1 Rakan Avila MD [address] [place] [address] Historical LMR Provider 08/10/17 1 documented as of this encounter Additional Source Comments The information contained in this document represents components of the legal health record. It is not the complete legal health record.[facility]
--- OUTSIDE RECORDS SUMMARY | 2025-10-19 08:34 | XMS_ITS | Encounter Summary ---
Author Organization [facility] Address [address] [place] [address] Phone Care Team Providers Care Gas Specialist Name Role Phone Julita Urbina MD Primary Care Provider [phone] Encounter Details Date Type Department Care Team (Late st Contact Info) Description 11/29/2023 Procedure Pass [facility] [address] [place] [address] Social History Tobacco Use Types Packs/Day Years [...] high school, GED, job training, learning the [place]ican language, technical skills, or developing parenting skills)? [...] Description 01/19/2026 11:40 AM EDT Office Visit [facility] Endocrinology Clinic [address] [place] [address] Missy Gannon MD [address] [place] [address] documented as of this encounter Visit Diagnoses Not on filedocumented in this encounter Additional Health Concerns Infection Onset Date Last Indicated Resolved Time COVID-19 07/04/2024 07/04/2024 07/25/2024 1:22 AM EDT Assessment Noted Time PHQ-2 Depression Total Score: 0 12/03/19 23 9:54 AM EST documented as of this encounter Care Teams Gas Specialist Relationship Specialty Start Date End Date Julita Urbina MD [address] [place] [address], 2nd [place] [address] PCP - General Internal Medicine 12/11/22 documented as of this encounter Additional Source Comments The information contained in this document represents components of the legal health record. It is not the complete legal health record.[facility]
--- OUTSIDE RECORDS SUMMARY | 2025-10-19 08:34 | XMS_ITS | Encounter Summary ---
Author Organization [facility] Address [address] [place] [address] Phone Care Team Providers Care Viscosity Inspector Name Role Phone Richard Springer MD Unavailable [phone] Scott Roe MD Unavailable [phone] Thelma Abarca MD Unavailable [phone] Johanna Fields MD Unavailable [phone] Rakan Avila MD Unavailable [phone] Lara Maldonado RNhuman resources manager manufacturing Provider [phone] Antonia Reyes MD Primary Care Provider [email or web address] Clotilde Phillips CHIEF OPERATOR LOCK TENDER Primary Care Provider [phone] Julita Urbina MD Primary Care Provider [phone] Encounter Details Date Type Department Care Team (Late st Contact Info) Description 07/26/2020 Ancillary Orders [facility],Outside Imaging 30 [place] [address] System, Provider Not In, PhD [address] [address] Social History Tobacco Use Types Packs/Day Years [...] Description 01/19/2026 11:40 AM EDT Office Visit [facility] Endocrinology [address] [address] Missy Gannon MD [address] [place] [address] documented as of this encounter Results * [...] documented as of this encounter Care Teams Viscosity Inspector Relationship Specialty Start Date End Date Lara Maldonado RN [address] [place] [address] PCP - General Internal Medicine 05/16/20 12/21/20 Antonia Reyes MD [email or web address] PCP - General Family Medicine 12/22/20 05/03/21 Clotilde Phillips FNP [address] [place] [address] 7 [place] [address] [email or web address] PCP - General Family Medicine 05/04/21 12/10/22 Julita Urbina MD [address] [place] [address] [email or web address] PCP - General Internal Medicine 12/11/22 Richard Springer MD [address] [place] [address] [email or web address] Historical LMR Provider 08/10/17 12/21/20 Scott Roe MD [address] [address] [email or web address] Historical LMR Provider 08/10/17 12/21/20 Thelma Abarca MD 30 [place] [address] Historical LMR Provider 08/10/17 1 Johanna Fields MD [address] [place] [address] Historical LMR Provider 08/10/17 1 Rakan Avila MD [address] [place] [address] Historical LMR Provider 08/10/17 1 documented as of this encounter Additional Source Comments The information contained in this document represents components of the legal health record. It is not the complete legal health record.[facility]
--- OUTSIDE RECORDS SUMMARY | 2025-10-19 08:35 | XMS_ITS | Encounter Summary ---
Author Organization [facility] Address [address] [place] [address] Phone Care Team Providers Care Senior Software Quality Analyst Name Role Phone Richard Springer MD Unavailable [phone] Scott Roe MD Unavailable [phone] Thelma Abarca MD Unavailable [phone] Johanna Fields MD Unavailable [phone] Rakan Avila MD Unavailable [phone] Richard Springer MD Primary Care Provider + Lara Maldonado RNcotton picker Provider [phone] Antonia Reyes MD Primary Care Provider [email or web address] Clotilde Phillips Primary Care Provider [phone] Julita Urbina MD Primary Care Provider [phone] Encounter Details Date Type Department Care Team (Late st Contact Info) Description 10/23/2018 Procedure Pass [place] Admitting Dept - Virtual Department [address] [place], [place] [id number] Social History Tobacco Use Types Packs/Day Years [...] Description 01/19/2026 11:40 AM EDT Office Visit [facility] Endocrinology [address] [address] Missy Gannon MD [address] [place] [address] [email or web address] documented as of this encounter Visit Diagnoses [...] documented as of this encounter Care Teams Senior Software Quality Analyst Relationship Specialty Start Date End Date Richard Springer MD [address] [place] [address] [email or web address] PCP - General Family Medicine 07/22/18 05/15/20 Lara Maldonado RN 30 [place] [address] [email or web address] PCP - General Internal Medicine 05/16/20 12/21/20 Antonia Reyes MD [email or web address] PCP - General Family Medicine 12/22/20 05/03/21 Clotilde Phillips FNP [address] [place] [address], [address] [place] [address] [email or web address] PCP - General Family Medicine 05/04/21 12/10/22 Julita Urbina MD [address] [place] [address] [email or web address] PCP - General Internal Medicine 12/11/22 Richard Springer MD [address] [place] [address] [email or web address] Historical LMR Provider 08/10/17 12/21/20 Scott Roe MD [address] [address] [email or web address] Historical LMR Provider 08/10/17 12/21/20 Thelma Abarca MD 30 [place] [address] Historical LMR Provider 08/10/17 1 Johanna Fields MD 61 [place] [address] Historical LMR Provider 08/10/17 1 Rakan Avila MD 61 [place] [address] Historical LMR Provider 08/10/17 1 documented as of this encounter Additional Source Comments The information contained in this document represents components of the legal health record. It is not the complete legal health record.[facility]
--- OUTSIDE RECORDS SUMMARY | 2025-10-19 08:35 | XMS_ITS | Encounter Summary ---
Author Organization [facility] Address [address] [place] [address] Phone Care Team Providers Care Car Rental Agent Name Role Phone Julita Urbina MD Primary Care Provider [phone] Encounter Details Date Type Department Care Team (Late st Contact Info) Description 12/12/2022 Procedure Pass [address] [address] Social History Tobacco Use Types Packs/Day Years [...] high school, GED, job training, learning the Palestinian language, technical skills, or developing parenting skills)? [...] Description 01/19/2026 11:40 AM EDT Office Visit [facility] Endocrinology Clinic [address] [place] [address] Missy Gannon MD [address] [place] [address] documented as of this encounter Visit Diagnoses Not on filedocumented in this encounter Additional Health Concerns Infection Onset Date Last Indicated Resolved Time CoV-Risk Comment:Per Ambulatory Triage Form 11/06/2023 11/06/202311/17 1:22 AM EST COVID-19 07/04/2024 07/04/2024 07/25/2024 1:22 AM EDT Assessment Noted Time PHQ-2 Depression Total Score: 0 12/03/19 9:54 AM EST documented as of this encounter Care Teams Car Rental Agent Relationship Specialty Start Date End Date Julita Urbina MD [address] [place] [address] 2nd [place] [address] PCP - General Internal Medicine 12/11/22 documented as of this encounter Additional Source Comments The information contained in this document represents components of the legal health record. It is not the complete legal health record.[facility]
--- OUTSIDE RECORDS SUMMARY | 2025-10-19 08:35 | XMS_ITS | Encounter Summary ---
Author Organization [facility] Address [address] [place] [address] Phone Care Team Providers Care Shell Assembler Name Role Phone Clotilde Phillips aVne RIVERA Primary Care Provider Julita Urbina MD Primary Care Provider [phone] Encounter Details Date Type Department Care Team (Late st Contact Info) Description 10/17/2021 Procedure Pass [facility] - [address] [place] [address] Social History Tobacco Use Types Packs/Day Years [...] high school, GED, job training, learning the Honduran language, technical skills, or developing parenting skills)? [...] Description 01/19/2026 11:40 AM EDT Office Visit [facility] Endocrinology Clinic [address] [place] [address] Missy Gannon MD [address] [place] [address] documented as of this encounter Visit Diagnoses [...] documented as of this encounter Care Teams Shell Assembler Relationship Specialty Start Date End Date Clotilde Phillips FNP [address] [place] [address], [address] [place] [address] PCP - General Family Medicine 05/04/21 12/10/22 Julita Urbina MD [address] [place] [address], 2nd [place] [address] [email or web address] PCP - General Internal Medicine 12/11/22 documented as of this encounter Additional Source Comments The information contained in this document represents components of the legal health record. It is not the complete legal health record.[facility]
--- OUTSIDE RECORDS SUMMARY | 2025-10-19 08:35 | XMS_ITS | Encounter Summary ---
Author Organization [facility] Address [address] [place] [address] Phone Care Team Providers Care Electric Tripper Machine Operator Name Role Phone Richard Springer MD Unavailable [phone] Scott Roe MD Unavailable [phone] Thelma Abarca MD Unavailable [phone] Johanna Fields MD Unavailable [phone] Rakan Avila MD Unavailable [phone] Lara Maldonado RNfilter cleaner Provider [phone] Antonia Reyes MD Primary Care Provider [email or web address] Clotilde Phillips CCO Primary Care Provider [phone] Julita Urbina MD Primary Care Provider [phone] Encounter Details Date Type Department Care Team (Late st Contact Info) Description 07/26/2020 Ancillary Orders [facility],Outside Imaging [address] [place] [address] System, Provider Not In, PhD [address] [address] Social History Tobacco Use Types Packs/Day Years [...] Description 01/19/2026 11:40 AM EDT Office Visit [facility] Endocrinology [address] [address] Missy Gannon MD [address] [place] [address] documented as of this encounter Results * [...] documented as of this encounter Care Teams Electric Tripper Machine Operator Relationship Specialty Start Date End Date Lara Maldonado RN [address] [place] [address] PCP - General Internal Medicine 05/16/20 12/21/20 Antonia Reyes MD [email or web address] PCP - General Family Medicine 12/22/20 05/03/21 Clotilde Phillips FNP [address] [place] [address] 7 [place] [address] [email or web address] PCP - General Family Medicine 05/04/21 12/10/22 Julita Urbina MD [address] [place] [address] [email or web address] PCP - General Internal Medicine 12/11/22 Richard Springer MD [address] [place] [address] [email or web address] Historical LMR Provider 08/10/17 12/21/20 Scott Roe MD [address] [address] [email or web address] Historical LMR Provider 08/10/17 12/21/20 Thelma Abarca MD [address] [place] [address] Historical LMR Provider 08/10/17 1 Johanna Fields MD [address] [place] [address] Historical LMR Provider 08/10/17 1 Rakan Avila MD [address] [place] [address] Historical LMR Provider 08/10/17 1 documented as of this encounter Additional Source Comments The information contained in this document represents components of the legal health record. It is not the complete legal health record.[facility]
--- OUTSIDE RECORDS SUMMARY | 2025-10-19 08:35 | XMS_ITS | Encounter Summary ---
Author Organization [facility] Address [address] [place] [address] Phone Care Team Providers Care Buyer Assistant Name Role Phone Richard Springer MD Unavailable [phone] Scott Roe MD Unavailable [phone] Thelma Abarca MD Unavailable [phone] Johanna Fields MD Unavailable [phone] Rakan Avila MD Unavailable [phone] Richard Springer MD Primary Care Provider + Lara Maldonado RNauto body straightener Provider [phone] Antonia Reyes MD Primary Care Provider [email or web address] Clotilde Phillips Primary Care Provider [phone] Julita Urbina MD Primary Care Provider [phone] Encounter Details Date Type Department Care Team (Late st Contact Info) Description 12/25/2018 Ancillary Orders Virtual Department [address] [place] [address] Grzegorz Rashid, ROBERTH [address] [place] [address] [phone] [email or web address] spondylosis, lumbar region Social History Tobacco [...] Description 01/19/2026 11:40 AM EDT Office Visit [facility] Endocrinology Clinic [address] [place] [address] Missy Gannon MD [address] [place] [address] documented as of this encounter Results * XR LUMBOSACRAL SPINE 4 OR MORE VIEWS (2018 1:44 PM EST) Anatomical Region Laterality Modality L-spine Radiographic Luna ging 2018 1:57 PM EST Impressions 2018 2:01 PM EST Very minimal L4-5 and equivocal L3-4 instability during flexion. Stable multilevel degenerative disc disease. POS - [id number] Narrative 2018 2:01 PM EST COMPARISON: 07/02/2018 [...] mm anterolisthesis of the L4 relation to [id number] bodies during flexion and a more equivocal 2-3 mmanterolisthesis of the L3 in relation to L4 bodies. The seem to reduce inextension. No additional instability demonstrated. IMPRESSION: Very minimal L4-5 and equivocal L3-4 instability during flexion. Stablemultilevel degenerative disc disease. POS - [id number] Grzegorz LEPE IMG XR SPINE Final Resul [...] documented as of this encounter Care Teams Buyer Assistant Relationship Specialty Start Date End Date Richard Springer MD [address] [place] [address] [email or web address] PCP - General Family Medicine 07/22/18 05/15/20 Lara Maldonado RN [address] [place] [address] [email or web address] PCP - General Internal Medicine 05/16/20 12/21/20 Antonia Reyes MD [email or web address] PCP - General Family Medicine 12/22/20 05/03/21 Clotilde Phillips FNP [address] [place] [address], [address] [place] [address] [email or web address] PCP - General Family Medicine 05/04/21 12/10/22 Julita Urbina MD [address] [place] [address] [email or web address] PCP - General Internal Medicine 12/11/22 Richard Springer MD [address] [place] [address] [email or web address] Historical LMR Provider 08/10/17 12/21/20 Scott Roe MD [address] [address] [email or web address] Historical LMR Provider 08/10/17 12/21/20 Thelma Abarca MD [address] [place] [address] Historical LMR Provider 08/10/17 1 Johanna Fields MD [address] [place] [address] Historical LMR Provider 08/10/17 1 Rakan Avila MD [address] [place] [address] Historical LMR Provider 08/10/17 1 documented as of this encounter Additional Source Comments The information contained in this document represents components of the legal health record. It is not the complete legal health record.[facility]
--- OUTSIDE RECORDS SUMMARY | 2025-10-19 08:35 | XMS_ITS | Encounter Summary ---
Author Organization [facility] Address [address] [place] [address] Phone Care Team Providers Care Office Asst Name Role Phone Clotilde Phillips [facility] Primary Care Provider [phone] Julita Urbina MD Primary Care Provider [phone] Encounter Details Date Type Department Care Team (Latest Contact Info) Description 10/17/2021 Transcribe Orders Virtual Department [address] [place] [address] Clotilde Phillips [facility] 234 [facility] 7 [place] [address] [email or web address] Breast screening (Primary Dx) [...] high school, GED, job training, learning the Malian language, technical skills, or developing parenting skills)? [...] Description 01/19/2026 11:40 AM EDT Office Visit [facility] Endocrinology Clinic [address] [place] [address] Missy Gannon MD [address] [place] [address] [email or web address] documented as of this [...] documented as of this encounter Care Teams Office Asst Relationship Specialty Start Date End Date Clotilde Phillips FNP [address] [place] [address], [address] [place] [address] PCP - General Family Medicine 05/04/21 12/10/22 Julita Urbina MD [address] [place] [address], [address] [place] [address] [email or web address] PCP - General Internal Medicine 12/11/22 documented as of this encounter Additional Source Comments The information contained in this document represents components of the legal health record. It is not the complete legal health record.[facility]
--- OUTSIDE RECORDS SUMMARY | 2025-10-19 08:35 | XMS_ITS | Encounter Summary ---
Author Organization [facility] Address [address] [place] [address] Phone Care Team Providers Care Metal Riveter Name Role Phone Julita Urbina MD Primary Care Provider [phone] Encounter Details Date Type Department Care Team (Late st Contact Info) Description 12/14/2022 Procedure Pass [address] [address] Social History Tobacco Use Types Packs/Day Years [...] high school, GED, job training, learning the Uzbek language, technical skills, or developing parenting skills)? [...] 11:40 AM EDT Office Visit [facility] [address] [place] [address] Missy Gannon MD [address] [place] [address] documented as of this encounter Visit Diagnoses Not on filedocumented in this encounter Additional Health Concerns Infection Onset Date Last Indicated Resolved Time CoV-Risk Comment:Per Ambulatory Triage Form 11/06/2023 11/06/202311/17 1:22 AM EST COVID-19 07/04/2024 07/04/2024 07/25/2024 1:22 AM EDT Assessment Noted Time PHQ-2 Depression Total Score: 0 12/03/19 9:54 AM EST documented as of this encounter Care Teams Metal Riveter Relationship Specialty Start Date End Date Julita Urbina MD [address] [place] [address] [address] [place] [address] PCP - General Internal Medicine 12/11/22 documented as of this encounter Additional Source Comments The information contained in this document represents components of the legal health record. It is not the complete legal health record.[facility]
--- OUTSIDE RECORDS SUMMARY | 2025-10-19 08:35 | XMS_ITS | Encounter Summary ---
Author Organization [facility] Address [address] [facility] [address] [place] [address] Phone Care Team Providers Care Database Consultant Name Role Phone Julita Urbina MD Primary Care Provider [phone] Reason for Visit * Reason Onset Date Comments Referral 10/12/2025 Encounter Details Date Type Department Care Team (Late st Contact Info) Description 10/12/2025 Telephone [facility] [address] [place] [address] [place] [address] Julita Urbina MD [address] [facility], 2nd [place] [address] [email or web address] Referral Social History Tobacco Use Types Packs/Day [...] as of this encounter Progress Notes * Leslie Garcia - 10/18/2025 10:14 AM EST Authorization requested * Meghan Nieves - 10/12/2025 1:52 PM EST Diana from Spine surgery called requesting information on status of insurance auth. Referral signed 09/27 and office keeps requesting. Is requesting call back at: [phone] documented in this encounter Plan of Treatment Upcoming Encounters Date Type Department Care Team (Late st Contact Info) Description 01/19/2026 11:40 AM EDT Office Visit [facility] Endocrinology Clinic [address] [place] [address] Missy Gannon MD [address] [place] [address] [email or web address] documented as of this encounter Visit Diagnoses Not on filedocumented in this encounter Additional Health Concerns Assessment Noted Time PHQ-2 Depression Total Score: 0 12/03/19 9:54 AM EST documented as of this encounter Care Teams Database Consultant Relationship Specialty Start Date End Date Julita Urbina MD [address] [place] [address] [address] [place] [address] [email or web address] PCP - General Internal Medicine 12/11/22 documented as of this encounter Additional Source Comments The information contained in this document represents components of the legal health record. It is not the complete legal health record.[facility]
== END 2025-10-19 06:52 | disposition home or self-care (01) ==
LOC: CF 06:51
PROVIDERS: Visit Provider Anesthesiology
DX: M53.3 Sacrococcygeal disorders, not elsewhere classified (principal)
CPT/HCPCS: 27096; J1100; J2003; J2795; Q9967

== ENCOUNTER 2025-10-19 08:27 | Outpatient (AMB) | payer OTHER, SELFPAY ==
--- NOTE | 2025-10-19 08:30 | MHC.OFFVIS ---
Vital Signs 10/19/25 08:33 10/19/25 09:10 Height 5 ft 7.5 in Weight 148 lb BMI 22.8 BP 157/97 H 162/96 H Blood Pressure Location Lt brachial Rt brachial Position Sitting Sitting Respiration 16 16 Pulse 88 92 Pulse Source Pulse Oximeter Pulse Oximeter Pulse Oximetry (%) 99 97 Oxygen Delivery Method Room Air Room Air Intake Visit Reasons: Right Diagnostic SI joint injection Allergies No Known Allergies Allergy (Verified 09/10/25 11:41) PENDING SALE TO [facility] Medical History (Updated 10/19/25 @ 09:53 by Seth Garcia MD) Vitamin D deficiency Raynauds disease ADD (attention deficit disorder) Age-related osteoporosis without current pathological fracture Myofascial muscle pain Neck stiffness Sacroiliitis Chronic lower back pain Surgical History History of back surgery (~2019) History of right shoulder replacement H/O thyroidectomy Social History (Updated 08/01/25 @ 16:45 by MIGUEL Brink) Household Members: Spouse Housing: House Housing Other:: Lives and works at the [email or web address] Alcohol intake: never Patient Tobacco Use Status: Never used Tobacco Physical Exam Vital Signs: Last Vital Signs Pulse 92 10/19/25 09:10 Resp 16 10/19/25 09:10 BP 162/96 H 10/19/25 09:10 Pulse Ox 97 10/19/25 09:10 Oxygen Delivery Method Room Air 10/19/25 09:10 BMI result Body Mass Index 22.8 Assessment & Plan Assessment & Plan (1) Sacroiliac joint dysfunction of right side: Code(s): M53.3 - Sacrococcygeal disorders, not elsewhere classified Category: Medical Plan Right diagnostic sacroiliac joint injection. Informed concent was explained to the patient The risks, benefits and alternatives were discussed with the patient and informed consent was obtained, patient was placed in the prone position and padded to foster comfort. Time out was performed delineating correct site and side of the procedure , name and of the patient, patient participated in time out procedure. The lower back and upper buttocks of the patient were prepped with ChloraPrep and draped with sterile self adhesive utility towels. C-arm was brought over the operating field and picture of the right SI joint was demonstrated on the screen. Tilting C-arm contralateral to the left the posterior silhouette of the sacroiliac joint was superimposed on anterior silhouette of the sacroiliac joint. The point slightly medial to the sacroiliac joint silhouette was injected with lidocaine 2%, forming skin wheal. After that 22 gauge 3-1/2 inch spinal needle was inserted through the skin wheal and advanced to were the sacroiliac joint in tunnel vision fashion. When the needle entered the sacroiliac joint capsule injection of the contrast was performed delineating intra-articular and minimally periarticular spread of the contrast. After that injection of the treatment solution of ropivacaine 0.5% 4 mL mixed with trace amount of dexamethasone no more than 5 mg into the joint was performed. Upon completion of the injection needle was withdrawn sterile Band-Aid was applied. The patient tolerated the procedure well. Orders: Orders FL guidance in treatment room Today M53.3 - Sacrococcygeal disorders, not elsewhere classified Coding Level of Care Code Procedure Only Diagnoses Sacroiliac joint dysfunction of right side M53.3
[2025-10-19 08:33] VITALS: BP 157/97; PULSE 88; RESP 16; O2SAT 99; BMI 22.8
[2025-10-19 09:10] VITALS: BP 162/96; PULSE 92; RESP 16; O2SAT 97
== END 2025-10-19 09:10 | disposition home or self-care (01) ==
LOC: HO.PMCPRC 08:27
PROVIDERS: PCP Internal Medicine; Visit Provider Anesthesiology
DX: M53.3 Sacrococcygeal disorders, not elsewhere classified (principal)
CPT/HCPCS: 27096